=== PATIENT | female | born 1960 | race Caucasian/White ===

== ENCOUNTER 2019-10-29 09:58 | Outpatient (CLI) | payer OTHER, SELFPAY ==
--- NOTE | 2019-11-01 01:36 | WPDPFTINT ---
PFT Interpretation PFT Interpretation: DOS: 10/29/2019 REQUESTING: Leighann Ragland NP REASON FOR TESTING: Shortness of breath PULMONARY FUNCTION TESTS Results are reproducible. Spirometry: FEV1 100%, FVC 90%, FEV1% is 82%, all normal. No significant change with bronchodilator. Lung volumes: TLC 91%, RV 86%, and airway resistance also normal. Diffusion: DLCO 80%, normal. Flow volume loop: Normal. IMPRESSION: Normal study. Divya Aiken MD
== END 2019-10-29 09:59 | disposition home or self-care (01) ==
PROVIDERS: PCP Internal Medicine; Visit Provider Nurse Practitioner
DX: R05 Cough (principal)
CPT/HCPCS: 94060; 94726; 94729

== ENCOUNTER 2019-11-24 10:25 | Outpatient (CLI) | payer OTHER, SELFPAY ==
--- NOTE | ~2019-11-24 | US_ITS ---
EXAMINATION: US pelvic complete w TV DATE: 11/24/2019 11:18 INDICATION: Right lower quadrant abdominal pain. TECHNIQUE: Multiple transabdominal and endovaginal sonographic images of the pelvis were obtained. COMPARISON: CT abdomen and pelvis dated 05/23/2019 FINDINGS: The uterus measures 6.9 x 3.0 x 4.5 cm. The endometrial complex measures 1-2 mm in thickness. The ri ght ovary measures 2.1 x 1.8 x 1.3 cm. There are several is identified in the right ovary on color Do ppler. The left ovary is not visualized. There is no free fluid in the pelvis. IMPRESSION: 1. Normal postmenopausal pelvic ultrasound. Reviewed, dictated and finalized at location D.
--- NOTE | ~2019-11-24 | MR_ITS ---
EXAMINATION: MR lumbar spine wo con DATE: 11/24/2019 11:48 INDICATION: Lumbar spondylosis with low back pain TECHNIQUE: Magnetic resonance imaging (MRI) of the lumbar spine was performed without intravenous con trast. Sequences included sagittal T2-weighted FSE, sagittal T2-weighted FS FSE, sagittal T1-weighted FSE, and axial T2-weighted FSE. COMPARISON: CT abdomen and pelvis dated 05/23/2019 FINDINGS: 15 degree lumbar levoscoliosis. Sagittal alignment is normal. Vertebral body heights are normal. Mode rate to severe left-sided predominant disc height loss with fibrovascular and Modic type III scleroti c endplate changes at L4-L5. Moderate right-sided predominant disc height loss at L3-L4. Mild right-s ided disc height loss at L2-L3 with additional minimal fibrovascular degenerative endplate changes. B one marrow signal is otherwise normal. The conus medullaris terminates at L2. There is normal signal in the caudal spinal cord. Paravertebral soft tissues are unremarkable. The following disc levels are specifically discussed: T12-L1: Disc is minimally bulging with annular fissure and small central disc protrusion. There is mi ld left and moderate right facet joint osteoarthritis. There is no neural foraminal stenosis. There i s minimal central canal stenosis. L1-L2: Disc is mildly bulging. There is mild bilateral facet joint osteoarthritis. There is no neural foraminal stenosis. There is minimal central canal stenosis. L2-L3: Disc is mildly bulging. There is mild right and moderate left facet joint osteoarthritis. Ther e is mild to moderate right and minimal left neural foraminal stenosis. There is mild central canal s tenosis. L3-L4: Disc is mildly bulging with superimposed annular fissure and small central disc extrusion with disc material extending couple millimeters cephalad and caudal to the level of the endplates. There is hypertrophy of the ligamentum flavum. There is mild left and mild to moderate right facet joint o steoarthritis. There is mild bilateral neural foraminal stenosis. There is mild central canal stenosi s. L4-L5: Left foraminal zone disc osteophyte complex and small right foraminal zone disc protrusion. Th ere is mild left and moderate right facet joint osteoarthritis. There is mild right and moderate left neural foraminal stenosis. There is minimal central canal stenosis. L5-S1: Disc is mildly bulging. There is moderate bilateral facet joint osteoarthritis. There is mild left neural foraminal stenosis. There is minimal central canal stenosis. IMPRESSION: 1. Mild lumbar levoscoliosis with moderate spondylosis.. Reviewed, dictated and finalized at location D.
== END 2019-11-24 10:26 | disposition home or self-care (01) ==
PROVIDERS: PCP Physician Assistant; Visit Provider Physician Assistant
DX: M47.898 Other spondylosis, sacral and sacrococcygeal region (principal); R10.31 Right lower quadrant pain; M47.896 Other spondylosis, lumbar region
CPT/HCPCS: 72148; 76830; 76856

== ENCOUNTER → 2020-03-31 14:54 | Outpatient (CLI) | payer OTHER, SELFPAY ==
--- NOTE | ~2020-03-31 | MR_ITS ---
EXAMINATION: MR cervical spine wo con DATE: 03/31/2020 16:07 INDICATION: Cervical myelopathy. TECHNIQUE: Magnetic resonance imaging (MRI) of the cervical spine was performed without intravenous c ontrast. Sequences included sagittal T2-weighted FSE, sagittal STIR FSE, sagittal T1-weighted FSE, ax ial MERGE, and axial T2-weighted FSE. COMPARISON: None FINDINGS: There is 2 mm retrolisthesis of C4 on C5 and C5 on C6. Vertebral body heights are normal. T here is moderately decreased disc height at C4-C5, C5-C6, and C6-C7. The spinal cord signal intensity is normal. The following disc levels are specifically discussed: C2-C3: There is a central extrusion. There is no uncovertebral joint osteoarthritis. There is mild bi lateral facet joint osteoarthritis. There is no neural foraminal stenosis. There is mild central marilu l stenosis. C3-C4: The disc does not extend beyond the endplate margin. There is mild right uncovertebral joint o steoarthritis. There is moderate left facet joint osteoarthritis. There is mild left neural foraminal stenosis. There is no central canal stenosis. C4-C5: The disc does not extend beyond the endplate margins. There is mild bilateral uncovertebral juan f int osteoarthritis. There is no facet joint osteoarthritis. There is mild right neural foraminal sten osis. There is mild central canal stenosis. C5-C6: The disc is bulging. There is moderate bilateral uncovertebral joint osteoarthritis. There is no facet joint osteoarthritis. There is moderate right and mild left neural foraminal stenosis. There is mild central canal stenosis. C6-C7: The disc is bulging. There is moderate right and severe left uncovertebral joint osteoarthriti s. There is no facet joint osteoarthritis. There is mild right and moderate left neural foraminal fatoumata nosis. There is mild central canal stenosis. C7-T1: The disc does not extend beyond the endplate margin. There is no uncovertebral joint osteoarth ritis. There is mild left facet joint osteoarthritis. There is no neural foraminal stenosis. There is no central canal stenosis. IMPRESSION: 1. Moderate cervical spondylosis. Reviewed, dictated and finalized at location A.
== END ==
PROVIDERS: PCP Physician Assistant; Visit Provider Nurse Practitioner Acute Care
DX: G95.9 Disease of spinal cord, unspecified (principal); M47.892 Other spondylosis, cervical region
CPT/HCPCS: 72141

== ENCOUNTER → 2020-05-02 09:38 | Outpatient (CLI) | payer OTHER, SELFPAY ==
--- NOTE | ~2020-05-02 | XR_ITS ---
EXAMINATION: XR chest 2V 05/02/2020 09:51 INDICATION: Cough with wheezing PROCEDURE: 2 view chest COMPARISON: 06/15/2019 FINDINGS: The lungs are clear. The cardiomediastinal silhouette is within normal limits. There are no pleural effusions. There is no pneumothorax suspected. IMPRESSION: 1: NO ACUTE CARDIOPULMONARY DISEASE. Reviewed, dictated and finalized at location A. HOOP BENDER
== END ==
PROVIDERS: PCP Physician Assistant; Visit Provider Physician Assistant
DX: R05 Cough (principal)
CPT/HCPCS: 71046

== ENCOUNTER → 2021-01-27 07:29 | Outpatient (CLI) | payer OTHER, SELFPAY ==
--- NOTE | ~2021-01-27 | MR_ITS ---
EXAMINATION: MR ankle RT wo con DATE: 01/27/2021 08:25 INDICATION: Right-sided plantar fasciitis. TECHNIQUE: Magnetic resonance imaging (MRI) of the right ankle was performed without intravenous cont rast. Sequences included sagittal PD-weighted FS FSE, sagittal PD-weighted FSE, coronal PD-weighted F S FSE, coronal PD-weighted FSE, axial PD-weighted FS FSE, and axial PD-weighted FSE. COMPARISON: None. FINDINGS: Medial ankle ligaments: The superficial and deep components of the deltoid ligament are normal. Lateral ankle ligaments: The anterior and posterior talofibular ligaments, calcaneofibular ligament, and anterior and posterio r tibiofibular ligaments are normal. Tendons: The Achilles tendon, peroneal tendons, and anterior and medial ankle tendons are normal. Plantar fascia: There is thickening of the central band of plantar fascia. There is an enthesophyte at the calcaneal attachment. Bones/other: Bone alignment is normal. No fracture. Talar dome is normal. There is mild osteoarthritis of calcaneo cuboid joint. Fluid: There is no joint effusion. IMPRESSION: 1. Mild plantar fasciitis. Reviewed, dictated and finalized at location A. IMPRESSION: 1. Mild plantar fasciitis.
== END ==
PROVIDERS: PCP Physician Assistant; Visit Provider Podiatrist Foot & Ankle Surgery
DX: M72.2 Plantar fascial fibromatosis (principal)
CPT/HCPCS: 73721

== ENCOUNTER 2021-02-04 12:54 | Emergency (ER) | payer OTHER, SELFPAY ==
--- NOTE | ~2021-02-04 | XR_ITS ---
EXAMINATION: XR ribs RT 2V DATE: 02/04/2021 13:34 INDICATION: Anterior right chest pain post fall TECHNIQUE: 3 views of the right ribs were obtained. COMPARISON: Chest radiograph dated 05/02/2020 FINDINGS: Nondisplaced fracture at the anterior right seventh rib, possibly also at the adjacent anterior right sixth rib. Visualized portion of the lungs are clear with no focal airspace opacities, pulmonary raine ma, pleural effusion or pneumothorax. Cardiomediastinal silhouette is normal. Mild lumbar levocurvatu re. IMPRESSION: 1. Nondisplaced fracture at the anterior right seventh and possibly at the anterior right sixth ribs. Reviewed, dictated and finalized at location A. IMPRESSION: 1. Nondisplaced fracture at the anterior right seventh and possibly at the ante rior right sixth ribs.
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
[2021-02-04 13:10] VITALS: BP 146/64; PULSE 81; RESP 16; TEMP 36.2; O2SAT 100
== END 2021-02-04 14:24 | disposition home or self-care (01) ==
PROVIDERS: Emergency Provider Nurse Practitioner Family; PCP Physician Assistant
DX: S80.01XA Contusion of right knee, initial encounter (principal); V18.4XXA Pedal cycle driver injured in noncollision transport accident in traffic accident, initial encounter; E78.5 Hyperlipidemia, unspecified; I10 Essential (primary) hypertension; E03.9 Hypothyroidism, unspecified; M41.9 Scoliosis, unspecified
CPT/HCPCS: 71100; 73564; 99214; G0463

== ENCOUNTER → 2021-08-08 15:08 | Outpatient (CLI) | payer OTHER, SELFPAY ==
--- NOTE | ~2021-08-08 | XR_ITS ---
XR abdomen/kub 1V 08/08/2021 15:25 Indication: Right flank pain Procedure: KUB Comparison: CT dated 05/23/2019 Findings: There are innumerable punctate radiodensities presumably within bowel. There are changes of right lower abdominal hernia repair. Moderate colonic fecal loading. No definite renal/ureteral ston es. There is levoscoliosis of the lumbar spine with mild lumbar spondylosis. No acute osseous abnorma lity. Impression: 1: Nonobstructive bowel gas pattern with moderate colonic fecal loading. Reviewed, dictated and finalized at location A. ICALS DISTILLER Impression: 1: Nonobstructive bowel gas pattern with moderate colonic fecal loading.
== END ==
PROVIDERS: PCP Physician Assistant; Visit Provider Physician Assistant
DX: R10.9 Unspecified abdominal pain (principal)
CPT/HCPCS: 74018

== ENCOUNTER → 2022-03-02 11:55 | Outpatient (CLI) | payer OTHER, SELFPAY ==
--- NOTE | ~2022-03-02 | US_ITS ---
US right upper quadrant INDICATION: Right upper quadrant pain PROCEDURE: Realtime right upper abdominal ultrasound. COMPARISON: No prior studies for comparison. FINDINGS: The pancreas is normal without focal mass or pancreatic ductal dilation. Liver echotexture is normal without focal mass or intrahepatic biliary dilatation. There is normal directional flow i n the portal vein. The gallbladder is normal without stones, gallbladder wall thickening or pericholecystic fluid. Comm on bile duct measures 3 mm. No sonographic Vega's sign. IMPRESSION: 1: Normal limited abdominal ultrasound. Reviewed, dictated and finalized at location A.
== END ==
PROVIDERS: PCP Physician Assistant; Visit Provider Physician Assistant
DX: R10.11 Right upper quadrant pain (principal)
CPT/HCPCS: 76705

== ENCOUNTER → 2022-03-15 13:49 | Outpatient (CLI) | payer OTHER, SELFPAY ==
--- NOTE | ~2022-03-15 | CT_ITS ---
EXAMINATION: CT abdomen pelvis w con DATE: 03/15/2022 14:22 INDICATION: Right lower quadrant pain. TECHNIQUE: Computed tomography (CT) of the abdomen and pelvis was performed with 100 cc Omnipaque 350 intravenous contrast. The dose-length product was 273.52 mGy-cm. Automated exposure control and iter ative reconstruction technique were employed. COMPARISON: CT dated 05/23/2019 FINDINGS: Heart size normal. No significant pleural or pericardial effusion. No significant vascular abnormality. No lymphadenopathy. Nonobstructive bowel pattern. The liver contains a small subcentimeter cyst, right hepatic lobe. The spleen, pancreas, adrenal glan ds and kidneys are unremarkable. There are surgical changes of prior inguinal hernia repair. No free air or free fluid. Mild the appendix is unremarkable. Lumbar spondylosis with levoscoliosis. Mild ost eoarthritis of the hips. IMPRESSION: 1. No acute abdominal abnormality. Reviewed, dictated and finalized at location A.
[2022-03-15 14:11] LABS: Estimated Glomerular Filt Rate > 60
== END ==
PROVIDERS: PCP Physician Assistant; Visit Provider Physician Assistant
DX: R10.9 Unspecified abdominal pain (principal)
CPT/HCPCS: 74177; Q9967

== ENCOUNTER 2022-03-25 14:44 | Outpatient (CLI) | payer OTHER, SELFPAY ==
[2022-03-25 15:47] LABS: Add Urine Microscopic? NO; Appearance Urine Clear (Clear); Bilirubin Urine Negative (Negative); Blood Urine Negative (Negative); Color Urine Straw (Yellow); Glucose Urine UA Negative (Negative); Ketones Urine Negative (Negative); Leukocyte Esterase Ur Negative LEU/UL (Negative); Nitrate Urine Negative (Negative); Protein Urine Negative (Negative); Specific Grav Ur 1.009 (1.001-1.035); Urobilinogen Urine Negative mg/dL (<2.0)
== END 2022-03-25 14:45 | disposition home or self-care (01) ==
LOC: ANHLAB 14:45
PROVIDERS: PCP Physician Assistant; Visit Provider Nurse Practitioner
DX: R10.11 Right upper quadrant pain (principal); R10.9 Unspecified abdominal pain
CPT/HCPCS: 81003

== ENCOUNTER → 2022-05-17 07:30 | Outpatient (CLI) | payer OTHER, SELFPAY ==
--- NOTE | ~2022-05-17 | XR_ITS ---
XR chest 2V DATE: 05/17/2022 07:38 INDICATION: Pneumonia follow-up TECHNIQUE: 2 views COMPARISON: 05/02/2022 view chest FINDINGS: Normal heart size. No hilar or mediastinal enlargement. No pulmonary infiltrate or consolid ation, pleural effusion or pulmonary vascular congestion or pneumothorax. IMPRESSION: No active cardiopulmonary disease Reviewed, dictated and finalized at location B. 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
== END ==
PROVIDERS: PCP Physician Assistant; Visit Provider Physician Assistant
DX: J18.9 Pneumonia, unspecified organism (principal)
CPT/HCPCS: 71046

== ENCOUNTER 2022-07-12 00:07 | Day surgery (SDC) | payer OTHER, SELFPAY ==
[2022-07-02 16:07] VITALS: BMI 21.7
--- NOTE | 2022-07-11 09:49 | WPDANESEPPF ---
Anes - Initial Pre Proc Eval Procedure: Operation Date: 07/12/22 08:00 Proposed Procedures p Esophagogastroduodenoscopy EGD - Lukasz Dean MD Date/Time: 07/11/22 09:49 Surgeon: Lukasz Dean MD Pre Op Diagnosis: RUQ pain Patient Data Age: 61 Gender: F Height: 1.57 m Weight: 54 kg Allergies Allergy/AdvReac Type Severity Reaction Status Date / Time bee venom protein (honey bee) Allergy Intermediate hives Verified 07/12/22 06:51 Sulfa (Sulfonamide Allergy Intermediate HIVES Verified 07/12/22 06:51 Antibiotics) ciprofloxacin Allergy Mild nausea, Verified 07/12/22 06:51 trouble swallowing latex Allergy Mild Itching Verified 07/12/22 06:51 nitrofurantoin AdvReac Intermediate Nausea and Verified 07/12/22 06:51 Vomiting Home Medications Medication Instructions Recorded Confirmed Type hydrochlorothiazide 25 mg tablet 37.5 mg PO DAILY 05/18/19 07/02/22 History estradiol 0.01% (0.1 mg/gram) 2 g vaginal 3XW 11/13/20 07/02/22 History vaginal cream (Estrace) ezetimibe 10 mg tablet 10 mg PO DAILY 02/04/21 07/02/22 History gabapentin 100 mg capsule 100 mg PO DAILY 04/02/21 07/02/22 History blood sugar diagnostic (Accu-Chek #100 ea 12/19/21 06/19/22 Rx Christin Plus test strips) lancets (Accu-Chek Softclix #100 ea 12/19/21 06/19/22 Rx Lancets) metformin 500 mg tablet 500 mg PO TID 90 days #270 tabs 12/19/21 07/02/22 Rx promethazine 25 mg tablet 25 mg PO ONCE PRN PROPHYLACTIC 12/19/21 07/02/22 History cholecalciferol (vitamin D3) 1,250 50,000 unit PO MONTHLY 07/02/22 07/02/22 History mcg (50,000 unit) capsule dexamethasone sodium phosphate 4 4 mg 2XW 07/02/22 07/02/22 History mg/mL injection solution levothyroxine 50 mcg tablet 50 mcg PO DAILY 07/02/22 07/02/22 History (Synthroid) polyethylene glycol 3350 17 gram 8.5 g PO DAILY 07/02/22 07/02/22 History oral powder packet (Miralax) psyllium husk 0.52 gram capsule 0.52 g PO TID 07/02/22 07/02/22 History (Daily Fiber) Patient hx anesthesia problems: none Family hx anesthesia problems: none Results Review: All pre-operative results and documents have been reviewed as part of the pre-operative evaluation. [facility] Past Medical History Medical History Chronic constipation Colon cancer screening Diabetes type 2, controlled Early satiety GERD (gastroesophageal reflux disease) Hyperglycemia Hyperlipidemia Hypertension Hypothyroidism Liver cyst Mild scoliosis Right flank pain RUQ abdominal pain Vitamin D deficiency, unspecified Surgical History Surgical History History of biopsy History of hernia repair Family History Family History Father Family history of mental disorder Hypertension Mother Hypertension Family history of malignant neoplasm of breast in first degree relative Sibling Family history of thyroid disease Family history of malignant neoplasm of breast in first degree relative Other Family history of malignant neoplasm Social History Social History Smoking status: Never smoker Second hand tobacco smoke exposure: No Alcohol intake: current Substance use: never Substance use type: does not use Living arrangements: with family Occupation/Education: occupation 

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
[2022-07-12 06:52] VITALS: BP 139/65; PULSE 77; RESP 20; TEMP 35.7; O2SAT 100; BMI 22.8
[2022-07-12] MEDS: LACTATED RINGERS 1,000 ML 150 ML IV CONT (07:07)
[2022-07-12 07:09] LABS: Glucose Point of Care 85 mg/dl (65-105)
[2022-07-12 08:10] VITALS: BP 94/74; PULSE 72; RESP 18; O2SAT 98
[2022-07-12 08:20] VITALS: BP 101/55; PULSE 72; RESP 18; O2SAT 100
[2022-07-12 08:30] VITALS: BP 118/70; PULSE 70; RESP 20; O2SAT 100
== END 2022-07-12 08:48 | disposition home or self-care (01) ==
PROVIDERS: PCP Physician Assistant; Visit Provider Internal Medicine Gastroenterology
PROC: 0DJ08ZZ Inspection of Upper Intestinal Tract, Via Natural or Artificial Opening Endoscopic (ICD-10-PCS; CPT 43235; principal; 2022-07-12 08:00)
DX: K21.9 Gastro-esophageal reflux disease without esophagitis (principal); K25.9 Gastric ulcer, unspecified as acute or chronic, without hemorrhage or perforation; K29.80 Duodenitis without bleeding; I10 Essential (primary) hypertension; E11.9 Type 2 diabetes mellitus without complications; E78.5 Hyperlipidemia, unspecified; E03.9 Hypothyroidism, unspecified; E55.9 Vitamin D deficiency, unspecified; K59.09 Other constipation; Z79.84 Long term (current) use of oral hypoglycemic drugs
CPT/HCPCS: 43239; 82948; 87081; 88305; J2704; J7120

== ENCOUNTER 2022-08-05 07:15 | Outpatient (CLI) | payer OTHER, SELFPAY ==
--- NOTE | ~2022-08-05 | NM_ITS ---
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 TECHNIQUE: 5.1 mCi Tc-99m mebrofenin (Choletec) was administered intravenously. Scintigraphic images of the abdomen were obtained for one hour. At the 1 hour time point, the patient drank 8 oz Ensure, and imaging was continued for 60 minutes. Gallbladder ejection fraction was calculated by the technol ogist. FINDINGS: There is normal clearance of radiotracer from the blood pool. There is homogeneous tracer u ptake by the liver. Activity progresses to the bowel and gallbladder. The gallbladder ejection fract ion is 76%. Note that with this technique, normal GBEF >= 33%. IMPRESSION: 1. Normal hepatobiliary scan. Reviewed, dictated and finalized at location B. 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
== END 2022-08-05 07:16 | disposition home or self-care (01) ==
PROVIDERS: PCP Physician Assistant; Visit Provider Internal Medicine Gastroenterology
DX: R10.11 Right upper quadrant pain (principal)
CPT/HCPCS: 78226; A9537

== ENCOUNTER 2022-09-14 20:55 | Emergency (ER) | payer OTHER, SELFPAY ==
[2022-09-14] VITALS (16 sets, daily range): BP systolic 108–156; BP diastolic 66–93; PULSE 80; RESP 18; TEMP 36.6; O2SAT 98–100
--- NOTE | 2022-09-14 23:49 | ED.GENADULT ---
HPI - General Adult General Chief complaint: Eye Problems Stated complaint: one pupil dilated? Time Seen by Provider: 09/14/22 22:46 History of Present Illness HPI narrative: This is a 61-year-old female presenting to ED with chief complaint of a dilated pupil. The patient's daughter noticed that her left pupil is larger than her right pupil. The patient spent the day outside playing with the grand kids. She has had no other neurologic symptoms. The patient does note that over the last several weeks she has been having blurry vision and headaches that are worse in the morning. The headaches are located on the top of her head and resolve throughout the day. There is no associated nausea, vomiting or neurologic deficits. Patient's father had glioblastoma. Related Data Home Medications Medication Instructions Recorded Confirmed hydrochlorothiazide 25 mg tablet 37.5 mg PO DAILY 05/18/19 07/02/22 estradiol 0.01% (0.1 mg/gram) 2 g vaginal 3XW 11/13/20 07/02/22 vaginal cream (Estrace) ezetimibe 10 mg tablet 10 mg PO DAILY 02/04/21 07/02/22 gabapentin 100 mg capsule 100 mg PO DAILY 04/02/21 07/02/22 promethazine 25 mg tablet 25 mg PO ONCE PRN PROPHYLACTIC 12/19/21 07/02/22 cholecalciferol (vitamin D3) 1,250 50,000 unit PO MONTHLY 07/02/22 07/02/22 mcg (50,000 unit) capsule dexamethasone sodium phosphate 4 4 mg 2XW 07/02/22 07/02/22 mg/mL injection solution levothyroxine 50 mcg tablet 50 mcg PO DAILY 07/02/22 07/02/22 (Synthroid) polyethylene glycol 3350 17 gram 8.5 g PO DAILY 07/02/22 07/02/22 oral powder packet (Miralax) psyllium husk 0.52 gram capsule 0.52 g PO TID 07/02/22 07/02/22 (Daily Fiber) Allergies Allergy/AdvReac Type Severity Reaction Status Date / Time bee venom protein (honey bee) Allergy Intermediate hives Verified 09/14/22 21:50 Sulfa (Sulfonamide Allergy Intermediate HIVES Verified 09/14/22 21:50 Antibiotics) ciprofloxacin Allergy Mild nausea, Verified 09/14/22 21:50 trouble swallowing latex Allergy Mild Itching Verified 09/14/22 21:50 nitrofurantoin AdvReac Intermediate Nausea and Verified 09/14/22 21:50 Vomiting PMFSH Past Medical History Medical History Chronic constipation Colon cancer screening Diabetes type 2, controlled Early satiety GERD (gastroesophageal reflux disease) Hyperglycemia Hyperlipidemia Hypertension Hypothyroidism Liver cyst Mild scoliosis Right flank pain RUQ abdominal pain Vitamin D deficiency, unspecified Surgical History Surgical History History of biopsy History of hernia repair Family History Family History Father Family history of mental disorder Hypertension Mother Hypertension Family history of malignant neoplasm of breast in first degree relative Sibling Family history of thyroid disease Family history of malignant neoplasm of breast in first degree relative Other Family history of malignant neoplasm Social History Social History Smoking status: Never smoker Second hand tobacco smoke exposure: No Alcohol intake: current Substance use: never Substance use type: does not use Living arrangements: with family Occupation/Education: occupation 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 Head: atraumatic. EYES: Left eye is dilated at 3 mm, right eye 2 mm, consensual light reflexes intact. Intra-ocular pressure 16 bilaterally. No evidence of corneal abrasion. No injection. Visual acuity R. 20/30 NOSE: Atraumatic NECK: Trachea midline RESPIRATORY: No increased rate of breathing CARDIOVASCULAR: RRR, ABDOMINAL: Non-distended MUSCULOSKE
[2022-09-15 00:05] LABS: Basophils Absolute Auto 0.1 K/mm3 (0.0-0.1); Basophils Percent Auto 0.8 % (0.2-1.2); Eosinophils Absolute Auto 0.3 K/mm3 (0-0.3); Eosinophils Percent Auto 3.7 % (0-4.4); Hematocrit 35.8 % (37.0-47.0); Hemoglobin 11.5 g/dL (12.0-15.0); Immature Granulocyte Absolute 0.02 K/mm3 (0.00-0.031); Immature Granulocyte Percent A 0.2 % (0-0.5); Lymphocytes Absolute Auto 3.39 K/mm3 (0.9-3.2); Lymphocytes Percent Auto 37.3 % (18.3-44.2); Mean Corpuscular HGB Conc 32.1 g/dl (32-36); Mean Corpuscular Hemoglobin 26.5 pg (26-34); Mean Corpuscular Volume 82.5 fl (80-100); Mean Platelet Volume 9.1 fl (7.4-10.4); Monocytes Absolute Auto 0.8 K/mm3 (0.1-0.6); Monocytes Percent Auto 8.6 % (2.6-8.5); Neutrophils Absolute Auto 4.5 K/mm3 (1.3-6.7); Neutrophils Percent Auto 49.4 % (45.5-73.1); Platelet Count Result 364 k/mm3 (150-375); Red Blood Count 4.34 M/mm3 (4.2-5.4); Red Cell Distribution Width 14.7 % (11.5-14.5); White Blood Count 9.1 K/mm3 (4.5-10.0)
[2022-09-15 00:14] LABS: Anion Gap 6 mmol/L (8-16); Blood Urea Nitrogen 25 mg/dL (7-17); Calcium 9.6 mg/dL (8.4-10.2); Carbon Dioxide 32 mmol/L (22-30); Chloride 99 mmol/L (98-107); Estimated CRCL calculation 65 ml/min; Estimated Glomerular Filt Rate > 60; Glucose 102 mg/dL (65-110); Potassium 3.2 mmol/L (3.4-5.0); Sodium 137 mmol/L (137-145)
--- NOTE | 2022-09-15 00:20 | ECG_ITS ---
Measurements Intervals [place] Rate: 71 P: 48 DC: 204 QRS: 27 QRSD: 86 T: 43 QT: 407 QTc: 445 Interpretive Statements SINUS RHYTHM BASELINE ARTIFACT LOW QRS VOLTAGE IN PRECORDIAL LEADS NONSPECIFIC T-WAVE ABNORMALITY BORDERLINE ECG NO PREVIOUS ECG AVAILABLE FOR COMPARISON Electronically Signed On 09-15-2022 13:44:15 CDT by Darwin Hines M.D.
== END 2022-09-15 00:55 | disposition home or self-care (01) ==
PROVIDERS: Emergency Provider Emergency Medicine; PCP Physician Assistant
DX: H57.02 Anisocoria (principal); E11.9 Type 2 diabetes mellitus without complications; I10 Essential (primary) hypertension; E78.5 Hyperlipidemia, unspecified; E03.9 Hypothyroidism, unspecified; E55.9 Vitamin D deficiency, unspecified; K59.09 Other constipation; Z79.84 Long term (current) use of oral hypoglycemic drugs
CPT/HCPCS: 36415; 80048; 85025; 93005; 99283

== ENCOUNTER → 2022-09-26 13:44 | Outpatient (CLI) | payer OTHER, SELFPAY ==
--- NOTE | ~2022-09-26 | MR_ITS ---
EXAMINATION: MR orbits face neck wo/w con DATE: 09/26/2022 15:13 INDICATION: Headache and dilated left pupil TECHNIQUE: Magnetic resonance imaging (MRI) of the orbits and face was performed without and with 10 mL Multihance intravenous contrast. Sequences included sagittal and axial and coronal T1-weighted FSE and axial T2-weighted FSE. Postcontrast axial and coronal T1-weighted FSE was obtained. COMPARISON: None. FINDINGS: Orbits are normal. The optic nerves and chiasm appear normal. The basal cisterns including the supras ellar cistern appear normal. The pituitary stalk is deviated slightly to the right. Pituitary appears otherwise unremarkable. No abnormalities identified at the naye or along the course of the bilateral 3rd cranial nerves. Cavernous sinuses unremarkable both the left and right. Mild mucosal thickening and the paranasal sinuses with mucous retention cyst at the floor of the right maxillary sinus. Masto id air cells and middle ear cavities are clear. Visualized portion of the brain are normal. Flow void s are seen in the cerebral arteries on the T2-weighted sequences consistent with their expected paten cy. A patent right posterior communicating artery is larger in caliber than the right P1 segment. The left P1 segment is smaller than the left P1 segment. No aneurysms appreciated. Ventricles are normal and symmetric. No abnormally enhancing lesions identified. IMPRESSION: 1. Unremarkable study with no evident etiology for reported headache or dilated left pupil. Reviewed, dictated and finalized at location A.
--- NOTE | ~2022-09-26 | MR_ITS ---
EXAMINATION: MR brain/brain stem wo/w con DATE: 09/26/2022 15:13 INDICATION: Headache TECHNIQUE: Magnetic resonance imaging (MRI) of the brain and brainstem was performed without and with 10 mL Multihance intravenous contrast. Sequences included sagittal and axial T1-weighted SE, axial d iffusion-weighted FS SE, axial 3D SWAN, axial T2-weighted FLAIR, and axial T2-weighted FSE. Postcontr ast axial and coronal T1-weighted SE was obtained. Apparent diffusion coefficient (ADC) maps were cre ated. COMPARISON: 11/24/2018 FINDINGS: There are no areas of restricted diffusion to suggest acute infarction. No intracranial hemorrhage or abnormal intracranial mass lesion. No interval change in 3 small nonspecific foci of increased T2-we ighted signal intensity in the cerebral white matter which is within normal limits for age. There are no intraparenchymal signal abnormalities seen on the other pulse sequences. The ventricles are symme tric and normal in size. There are no abnormal extra-axial fluid collections. Flow voids are seen in the cerebral arteries on the T2-weighted sequences consistent with their expected patency. Right vert ebral artery is dominant. Mild mucosal thickening bilateral ethmoid sinuses. Mucous retention cyst in the right maxillary sinus. Visualized orbits and soft tissues are unremarkable. There are no areas o f abnormal enhancement on the post contrast images. IMPRESSION: 1. Normal for age brain. No acute intracranial process. Reviewed, dictated and finalized at location A.
== END ==
PROVIDERS: PCP Physician Assistant; Visit Provider Physician Assistant
DX: H57.04 Mydriasis (principal); R51.9 Headache, unspecified
CPT/HCPCS: 70543; 70553; A9577

== ENCOUNTER 2023-02-07 14:51 | Emergency (ER) | payer OTHER, SELFPAY ==
--- NOTE | ~2023-02-07 | XR_ITS ---
EXAMINATION: XR chest 1V DATE: 02/07/2023 18:26 INDICATION: Near syncope. TECHNIQUE: A single frontal view of the chest was obtained. COMPARISON: Chest 2 views 05/17/2022 FINDINGS: There is no pneumonia, pleural effusion, or pneumothorax. The heart size is normal. IMPRESSION: 1. No acute cardiopulmonary disease. Reviewed, dictated and finalized at location E.
--- NOTE | ~2023-02-07 | CT_ITS ---
EXAMINATION: CT brain wo con DATE: 02/07/2023 18:24 INDICATION: Headache. TECHNIQUE: Computed tomography (CT) of the head was performed without intravenous contrast. The mA wa s adjusted according to patient size. Iterative reconstruction technique was employed. The dose-lengt h product was 605.33 mGy-cm. COMPARISON: Head CT 03/22/2010, brain MRI 09/26/2022 FINDINGS: There is no intracranial hemorrhage, acute infarction, or abnormal intracranial mass lesion . The ventricles are normal in size. The orbits are normal. There is a small right mastoid effusion. There is complete opacification of the visualized portions of the right frontal sinus, anterior right ethmoid sinuses, and right maxillary sinus. IMPRESSION: 1. Normal brain. Reviewed, dictated and finalized at location E. IMPRESSION: 1. Normal brain.
[2023-02-07 15:06] VITALS: BP 152/75; PULSE 102; RESP 17; TEMP 37.1; O2SAT 99
--- NOTE | 2023-02-07 17:58 | ECG_ITS ---
Measurements Intervals [place] Rate: 73 P: 55 VA: 203 QRS: 28 QRSD: 78 T: 45 QT: 393 QTc: 433 Interpretive Statements SINUS RHYTHM NORMAL ECG COMPARED TO ECG 09/15/2022 00:20:47 NO SIGNIFICANT CHANGES Electronically Signed On 02-07-2023 20:15:17 CDT by Martin Black D.O.
--- NOTE | 2023-02-07 18:13 | ED.HA ---
HPI - Headache General Chief Complaint: Headache Stated Complaint: headache, near syncope Time Seen by Provider: 02/07/23 17:58 Source: patient Mode of arrival: ambulatory Limitations: no limitations History of Present Illness HPI Narrative: This is a 62 year old female that presents to the ER for cold symptoms ongoing over the last week. Reports several people at school have tested positive for COVID. She went to the urgent care to get a COVID test. Reports she was prompted to be seen in the ER for a possible stroke due to her persistent headache. Reports a intermittent right sided headache. Reports it is mild at this time. She did take Tylenol this afternoon. Reports associated rhinorrhea, congestion and cough. Denies fever, shortness of breath, or focal numbness or weakness. Related Data Home Medications Medication Instructions Recorded Confirmed hydrochlorothiazide 25 mg tablet 37.5 mg PO DAILY 05/18/19 12/17/22 ezetimibe 10 mg tablet 10 mg PO DAILY 02/04/21 12/17/22 gabapentin 100 mg capsule 100 mg PO DAILY 04/02/21 12/17/22 psyllium husk 0.52 gram capsule 0.52 g PO TID 07/02/22 12/17/22 (Daily Fiber) Allergies Allergy/AdvReac Type Severity Reaction Status Date / Time bee venom protein (honey bee) Allergy Intermediate hives Verified 02/07/23 15:14 Sulfa (Sulfonamide Allergy Intermediate HIVES Verified 02/07/23 15:14 Antibiotics) ciprofloxacin Allergy Mild nausea, Verified 02/07/23 15:14 trouble swallowing latex Allergy Mild Itching Verified 02/07/23 15:14 nitrofurantoin AdvReac Intermediate Nausea and Verified 02/07/23 15:14 Vomiting Review of Systems Review of Systems: CONSTITUTIONAL: Denies fever EYES: Denies visual changes ENT: Reports rhinorrhea, congestion CARDIOVASCULAR: Denies chest pain, palpitations, or edema. RESPIRATORY: Reports cough. Denies dyspnea. GASTROINTESTINAL: Denies vomiting NEUROLOGIC: Reports headache. Denies numbness, or weakness. All systems reviewed & are unremarkable except as noted in HPI and below PMFSH Past Medical History Medical History Chronic constipation Colon cancer screening Diabetes type 2, controlled Early satiety GERD (gastroesophageal reflux disease) Hyperglycemia Hyperlipidemia Hypertension Hypothyroidism Liver cyst Mild scoliosis Right flank pain RUQ abdominal pain Vitamin D deficiency, unspecified Surgical History Surgical History History of biopsy History of hernia repair Family History Family History Father Family history of mental disorder Hypertension Mother Hypertension Family history of malignant neoplasm of breast in first degree relative Sibling Family history of thyroid disease Family history of malignant neoplasm of breast in first degree relative Other Family history of malignant neoplasm Social History Social History Smoking status: Never smoker Second hand tobacco smoke exposure: No Alcohol intake: current Substance use: never Substance use type: does not use Living arrangements: with family Occupation/Education: occupation 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 HEAD: Normocephalic, atraumatic. EYES: EOMI. Left pupil is slightly larger than the right, which patient reports is chronic, reactive to light and accommodation bilaterally ENT: Nares clear, no rhinorrhea or epistaxis. Mucous membranes moist. Oropharynx without tonsillar hypertrophy exudate or other lesions. Bilateral TMs pearly alexander non-bulging NECK: Supple. No adenopathy or masses. CHEST: Clear to auscultation. No respi
[2023-02-07 18:37] LABS: Basophils Absolute Auto 0.1 K/mm3 (0.0-0.1); Basophils Percent Auto 0.8 % (0.2-1.2); Eosinophils Absolute Auto 0.2 K/mm3 (0-0.3); Eosinophils Percent Auto 2.3 % (0-4.4); Hematocrit 35.9 % (37.0-47.0); Hemoglobin 11.4 g/dL (12.0-15.0); Immature Granulocyte Absolute 0.01 K/mm3 (0.00-0.031); Immature Granulocyte Percent A 0.1 % (0-0.5); Lymphocytes Absolute Auto 2.76 K/mm3 (0.9-3.2); Lymphocytes Percent Auto 31.2 % (18.3-44.2); Mean Corpuscular HGB Conc 31.8 g/dl (32-36); Mean Corpuscular Hemoglobin 25.4 pg (26-34); Mean Corpuscular Volume 80.1 fl (80-100); Mean Platelet Volume 8.9 fl (7.4-10.4); Monocytes Absolute Auto 0.7 K/mm3 (0.1-0.6); Monocytes Percent Auto 7.4 % (2.6-8.5); Neutrophils Absolute Auto 5.2 K/mm3 (1.3-6.7); Neutrophils Percent Auto 58.2 % (45.5-73.1); Platelet Count Result 435 k/mm3 (150-375); Red Blood Count 4.48 M/mm3 (4.2-5.4); Red Cell Distribution Width 15.5 % (11.5-14.5); White Blood Count 8.8 K/mm3 (4.5-10.0)
[2023-02-07 18:48] LABS: Alanine Aminotransferase 14 U/L (6-35); Albumin Level 4.2 g/dL (3.5-5.1); Alkaline Phosphatase 66 U/L (38-126); Anion Gap 6 mmol/L (8-16); Aspartate Amino Transferase 23 U/L (14-36); Bilirubin,Total 0.3 mg/dL (0.2-1.3); Blood Urea Nitrogen 17 mg/dL (7-17); Calcium 9.6 mg/dL (8.4-10.2); Carbon Dioxide 32 mmol/L (22-30); Chloride 99 mmol/L (98-107); Estimated CRCL calculation 64 ml/min; Estimated Glomerular Filt Rate > 60; Glucose 98 mg/dL (65-110); Potassium 3.6 mmol/L (3.4-5.0); Sodium 137 mmol/L (137-145)
[2023-02-07 19:00] LABS: Troponin I < 0.012 ng/mL (0.000-0.034)
[2023-02-07 19:14] LABS: Influenza A QL RT-PCR Negative (Negative); Influenza B QL RT-PCR Negative (Negative); SARS-CoV-2 RNA PCR Negative (Negative)
[2023-02-07 20:53] VITALS: PULSE 74; RESP 19; O2SAT 99
== END 2023-02-07 20:54 | disposition home or self-care (01) ==
PROVIDERS: Emergency Provider Physician Assistant; PCP Physician Assistant
DX: R51.9 Headache, unspecified (principal); Z20.822 Contact with and (suspected) exposure to COVID-19; I10 Essential (primary) hypertension; E11.9 Type 2 diabetes mellitus without complications; E78.5 Hyperlipidemia, unspecified; E03.9 Hypothyroidism, unspecified; E55.9 Vitamin D deficiency, unspecified; K21.9 Gastro-esophageal reflux disease without esophagitis; R68.81 Early satiety; Z79.84 Long term (current) use of oral hypoglycemic drugs
CPT/HCPCS: 36415; 70450; 71045; 80053; 84484; 85025; 87636; 93005; 99284

== ENCOUNTER 2023-09-17 21:13 | Emergency (ER) | payer OTHER, SELFPAY ==
[2023-09-17 21:19] VITALS: BP 171/93; PULSE 88; RESP 18; TEMP 36.1; O2SAT 100
[2023-09-17 23:19] VITALS: BP 142/80; PULSE 81; RESP 17; O2SAT 99
[2023-09-17 23:24] VITALS: O2SAT 98
[2023-09-18] MEDS: methylPREDNISolone SOD SUCC 125 MG VIAL IV PUSH (00:55)
[2023-09-18] MEDS: FAMOTIDINE 20 MG/2 ML VIAL IV PUSH (00:55)
[2023-09-18] MEDS: diphenhydrAMINE HCl INJ 50 MG/ML VIAL 25 MG IV PUSH (00:55)
[2023-09-18 01:16] VITALS: BP 141/107; PULSE 70; RESP 15; O2SAT 100
--- NOTE | 2023-09-18 02:02 | ED.ALLEREA ---
HPI - Allergic Reaction General Chief complaint: Allergic Reaction Stated complaint: allergic reaction Time Seen by Provider: 09/17/23 23:10 Source: patient Mode of arrival: ambulatory Limitations: no limitations History of Present Illness HPI narrative: Patient is a 62-year-old female who presents the ED with report of allergic reaction. Patient reports around 530 today she took a dose of Diflucan for a yeast infection. She has been on several different antibiotics recently for dental infections and has had oral surgery recently. Stitches were removed from her right upper mouth today from recent oral surgery. Approximately 45 minutes after taking Diflucan, she developed mild swelling of her tongue. She states her tongue appeared as though it had hives, splotches, red raised bumps. She began having mild difficulty swallowing. Denied difficulty breathing. She contacted a telehealth doctor and was advised to come to the ED for further evaluation. Patient did not take anything for her symptoms. She reports symptoms have begun to improve. She states her tongue does not feel quite as swollen. She denied any other associated symptoms. Denied rash elsewhere. Denied nausea, vomiting, diarrhea, cough, itching, CP, dizziness, lightheadedness. Patient notes she does have numerous allergies. Never had anaphylaxis before. Patient has never taken Diflucan before. She has been on the antibiotics before. Denies any other new medications, foods, face washes. Related Data Home Medications Medication Instructions Recorded Confirmed hydrochlorothiazide 25 mg tablet 37.5 mg PO DAILY 05/18/19 04/03/23 ezetimibe 10 mg tablet 10 mg PO DAILY 02/04/21 04/03/23 gabapentin 100 mg capsule 100 mg PO DAILY 04/02/21 04/03/23 psyllium husk 0.52 gram capsule 0.52 g PO TID 07/02/22 04/03/23 (Daily Fiber) metformin 500 mg tablet 250 mg PO TIDWMEAL 04/03/23 04/03/23 Allergies Allergy/AdvReac Type Severity Reaction Status Date / Time fluconazole [From Diflucan] Allergy Severe Anaphylaxis Verified 09/18/23 02:03 bee venom protein (honey bee) Allergy Intermediate hives Verified 04/03/23 13:06 Sulfa (Sulfonamide Allergy Intermediate HIVES Verified 04/03/23 13:06 Antibiotics) ciprofloxacin Allergy Mild nausea, Verified 04/03/23 13:06 trouble swallowing latex Allergy Mild Itching Verified 04/03/23 13:06 nitrofurantoin AdvReac Intermediate Nausea and Verified 04/03/23 13:06 Vomiting Review of Systems Review of Systems: CONSTITUTIONAL: Denies fever, chills, or sweats. ENT: See HPI. CARDIOVASCULAR: Denies chest pain. RESPIRATORY: Denies cough or dyspnea. GASTROINTESTINAL: Denies abdominal pain, nausea, vomiting. SKIN: See HPI NEUROLOGIC: Denies headache, dizziness, numbness, or weakness. All systems reviewed & are unremarkable except as noted in HPI and below [facility] Past Medical History Medical History Chronic constipation Colon cancer screening Diabetes type 2, controlled Early satiety GERD (gastroesophageal reflux disease) Hyperglycemia Hyperlipidemia Hypertension Hypothyroidism Liver cyst Mild scoliosis Retained myringotomy tube in right ear Right flank pain RUQ abdominal pain Vitamin D deficiency, unspecified Surgical History Surgical History History of biopsy History of hernia repair S/P tympanotomy with insertion of tube Family History Family History Father Family history of mental disorder Hypertension Mother Hypertension Family history of malignant neoplasm of breast in first degree relative Sibling Family history of thyroid disease Family history of malignant neoplasm of breast in first degree relative Other Family history of malignant neoplasm Social History Social History (Reviewed 09/18/23 @ 03:57 by Lorena Butler
[2023-09-18 02:26] VITALS: BP 133/73; PULSE 72; RESP 15; O2SAT 98
== END 2023-09-18 02:28 | disposition home or self-care (01) ==
PROVIDERS: Emergency Provider Physician Assistant; PCP Physician Assistant
DX: R13.10 Dysphagia, unspecified (principal); R22.0 Localized swelling, mass and lump, head; T37.8X5A Adverse effect of other specified systemic anti-infectives and antiparasitics, initial encounter; I10 Essential (primary) hypertension; E78.5 Hyperlipidemia, unspecified; E11.9 Type 2 diabetes mellitus without complications; E03.9 Hypothyroidism, unspecified; E55.9 Vitamin D deficiency, unspecified; K21.9 Gastro-esophageal reflux disease without esophagitis; Z79.84 Long term (current) use of oral hypoglycemic drugs
CPT/HCPCS: 96374; 96375; 99284; J1200; J2919

== ENCOUNTER 2023-09-19 17:38 | Emergency (ER) | payer OTHER, SELFPAY ==
[2023-09-19] VITALS (9 sets, daily range): BP systolic 132–157; BP diastolic 77–94; PULSE 68–84; RESP 12–20; TEMP 36.6; O2SAT 96–100
--- NOTE | ~2023-09-19 | CT_ITS ---
EXAMINATION: CT soft tissue neck w con DATE: 09/19/2023 19:27 INDICATION: Dysphagia TECHNIQUE: Computed tomography (CT) of the neck was performed with 75 mL Omnipaque-350 intravenous co ntrast. Automated exposure control and iterative reconstruction technique were employed. Exam dose: 252.07 mGy-cm total exam DLP. COMPARISON: July 26, 2013 CT soft tissue neck FINDINGS: Mild calcified plaque is noted at the carotid bulbs bilaterally, without significant lumina l stenosis. No evidence of carotid artery dissection. The internal jugular veins are patent. No super ior mediastinal mass lesion or lymphadenopathy. No cervical mass lesion or lymphadenopathy. Normal size and homogeneous enhancement of the thyroid gland. No parotid or submandibular gland mass lesion is noted. No cervical mass lesion or lymphadenopathy. No prevertebral soft tissue swelling or emphysema. Normal epiglottis. There is mild mucoperiosteal thickening of the inferolateral wall of the right maxillary antrum. The paranasal sinuses and mastoid air cells otherwise are normally developed and aerated. The included upper lung zones are clear. Moderately prominent cervical spondylosis including moderately prominent degenerative disc disease at C4-5, C5-6 and C6-7, with associated mild retrolisthesis at C5-6. IMPRESSION: No cervical mass lesion or lymphadenopathy Reviewed, dictated and finalized at Location A. Reviewed, dictated and finalized at location A.
--- NOTE | 2023-09-19 18:33 | ED.ALLEREA ---
HPI - Allergic Reaction General Chief complaint: Allergic Reaction Stated complaint: THROAT FEELS TIGHT/DIFFICULTY SWALLOWING Time Seen by Provider: 09/19/23 17:48 Source: patient Mode of arrival: ambulatory Limitations: no limitations History of Present Illness HPI narrative: This is a 62-year-old female with chief complaint possible allergic reaction. Reports that she has been having dysphagia after taking Diflucan a couple days ago. She presented to our ED initially was told that she had an allergic reaction. Was given steroids,. She does feel like the steroids and helping. However today she started creased difficulty with swallowing. She does note that she had a itchy rash to the side of the abdomen yesterday that has since resolved. Denies drooling. Denies shortness of breath or feeling that she cannot take air in. Denies fevers, chills, nausea, vomiting, chest pain, cough. Related Data Home Medications Medication Instructions Recorded Confirmed hydrochlorothiazide 25 mg tablet 37.5 mg PO DAILY 05/18/19 04/03/23 ezetimibe 10 mg tablet 10 mg PO DAILY 02/04/21 04/03/23 gabapentin 100 mg capsule 100 mg PO DAILY 04/02/21 04/03/23 psyllium husk 0.52 gram capsule 0.52 g PO TID 07/02/22 04/03/23 (Daily Fiber) metformin 500 mg tablet 250 mg PO TIDWMEAL 04/03/23 04/03/23 Allergies Allergy/AdvReac Type Severity Reaction Status Date / Time fluconazole [From Diflucan] Allergy Severe Anaphylaxis Verified 09/18/23 02:03 bee venom protein (honey bee) Allergy Intermediate hives Verified 04/03/23 13:06 Sulfa (Sulfonamide Allergy Intermediate HIVES Verified 04/03/23 13:06 Antibiotics) ciprofloxacin Allergy Mild nausea, Verified 04/03/23 13:06 trouble swallowing latex Allergy Mild Itching Verified 04/03/23 13:06 nitrofurantoin AdvReac Intermediate Nausea and Verified 04/03/23 13:06 Vomiting Review of Systems Review of Systems: All systems as dictated in HPI [facility] Past Medical History Medical History Chronic constipation Colon cancer screening Diabetes type 2, controlled Early satiety GERD (gastroesophageal reflux disease) Hyperglycemia Hyperlipidemia Hypertension Hypothyroidism Liver cyst Mild scoliosis Retained myringotomy tube in right ear Right flank pain RUQ abdominal pain Vitamin D deficiency, unspecified Surgical History Surgical History History of biopsy History of hernia repair S/P tympanotomy with insertion of tube Family History Family History Father Family history of mental disorder Hypertension Mother Hypertension Family history of malignant neoplasm of breast in first degree relative Sibling Family history of thyroid disease Family history of malignant neoplasm of breast in first degree relative Other Family history of malignant neoplasm Social History Social History Smoking status: Never smoker Second hand tobacco smoke exposure: No Alcohol intake: current Substance use: never Substance use type: does not use Living arrangements: with family Occupation/Education: occupation 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 HEAD: Normocephalic, atraumatic. EYES: PERRLA and EOMI. ENT: No tongue swelling. No lip swelling. No eyelid swelling. Uvula midline and normal in size. No significant submandibular swelling or tenderness. Nares clear, no rhinorrhea or epistaxis. Mucous membranes moist. Oropharynx without tonsillar hypertrophy exudate or other lesions. NECK: Supple. No adenopathy or masses. CHEST: No respirat
[2023-09-19 18:53] LABS: Basophils Percent Auto 0.1 % (0.2-1.2); Hemoglobin 11.3 g/dL (12.0-15.0); Immature Granulocyte Absolute 0.06 K/mm3 (0.00-0.031); Immature Granulocyte Percent A 0.4 % (0-0.5); Lymphocytes Absolute Auto 1.81 K/mm3 (0.9-3.2); Lymphocytes Percent Auto 11.7 % (18.3-44.2); Mean Corpuscular HGB Conc 32.3 g/dl (32-36); Mean Corpuscular Hemoglobin 25.7 pg (26-34); Mean Corpuscular Volume 79.5 fl (80-100); Mean Platelet Volume 9.2 fl (7.4-10.4); Monocytes Absolute Auto 0.9 K/mm3 (0.1-0.6); Monocytes Percent Auto 6.1 % (2.6-8.5); Neutrophils Absolute Auto 12.7 K/mm3 (1.3-6.7); Neutrophils Percent Auto 81.7 % (45.5-73.1); Platelet Count Result 460 k/mm3 (150-375); Red Cell Distribution Width 15.1 % (11.5-14.5); White Blood Count 15.5 K/mm3 (4.5-10.0)
[2023-09-19 19:06] LABS: Alanine Aminotransferase 17 U/L (6-35); Albumin Level 4.5 g/dL (3.5-5.1); Alkaline Phosphatase 57 U/L (38-126); Anion Gap 7 mmol/L (4-12); Aspartate Amino Transferase 19 U/L (14-36); Bilirubin,Total 0.4 mg/dL (0.2-1.3); Blood Urea Nitrogen 19 mg/dL (7-17); CRP < 0.5 mg/dL (<1.0); Carbon Dioxide 27 mmol/L (22-30); Chloride 99 mmol/L (98-107); Estimated CRCL calculation 55 ml/min; Estimated Glomerular Filt Rate > 60; Glucose 115 mg/dL (65-110); Potassium 4.1 mmol/L (3.4-5.0); Sodium 133 mmol/L (137-145)
[2023-09-19] MEDS: diphenhydrAMINE HCl INJ 50 MG/ML VIAL 25 MG IV PUSH (19:42)
== END 2023-09-19 20:35 | disposition home or self-care (01) ==
PROVIDERS: Emergency Provider Physician Assistant; PCP Physician Assistant
DX: R13.10 Dysphagia, unspecified (principal); T37.8X5A Adverse effect of other specified systemic anti-infectives and antiparasitics, initial encounter; I10 Essential (primary) hypertension; E78.5 Hyperlipidemia, unspecified; E11.9 Type 2 diabetes mellitus without complications; E03.9 Hypothyroidism, unspecified; E55.9 Vitamin D deficiency, unspecified; K21.9 Gastro-esophageal reflux disease without esophagitis; Z79.84 Long term (current) use of oral hypoglycemic drugs
CPT/HCPCS: 36415; 70491; 80053; 85025; 86140; 96374; 99284; J1200; Q9967

== ENCOUNTER 2023-12-16 07:00 | Outpatient (NON) | payer MEDICARE, SELFPAY | END 2023-12-17 07:43 | disposition home or self-care (01) | PROVIDERS: PCP Physician Assistant; Visit Provider Internal Medicine Gastroenterology | DX: R13.10 Dysphagia, unspecified (principal) | CPT/HCPCS: 88305 ==

== ENCOUNTER 2023-12-16 08:03 | Day surgery (SDC) | payer MEDICARE, SELFPAY ==
[2023-12-04 08:13] VITALS: BMI 20.7
[2023-12-04 13:52] VITALS: BMI 20.1
[2023-12-16 08:44] VITALS: BP 110/62; PULSE 64; RESP 20; TEMP 36.1; O2SAT 99; BMI 20.6
[2023-12-16 09:04] LABS: Glucose Point of Care 84 mg/dl (65-105)
[2023-12-16] MEDS: LACTATED RINGERS 1,000 ML 150 ML IV CONT (09:05)
--- NOTE | 2023-12-16 09:11 | PM.HPGS ---
History of Present Illness History of Present Illness Consent: Risks, benefits, and alternatives have been discussed and questions answered. Patient agrees to proceed with procedure. Chief complaint: Dysphagia, Foreign Body Sensation in Throat Narrative: Inga Andre is a 63 year old female with complaints of dysphagia which started after she underwent oral surgery on 09/02/2022 for a jaw infection and deterioration that required reconstruction with bone grafts. She was treated with several antibiotics including amoxicillin twice and clindamycin for 8 weeks due to an abscess. On 09/16/2022, when she got her stitches out, she developed a yeast infection from the antibiotics. That evening around 5 pm, she took Diflucan and about an hour later while lying down, she started having trouble swallowing with a sensation at the base of her tongue. She also developed a rash on her trunk. She went to the ER due to concern for a reaction to the bone graft but was sent back to the oral surgeon the next day who said it was not related to the surgery and sent her back to the ER. In the ER, she was given IV steroids and Benadryl as well as a pack of prednisone and had CT soft tissue of the neck with no acute abnormalities. After the ER visit, her symptoms improved to only occurring once or twice a week but over the last 2 weeks, it has been steadily progressing and the last 2 nights have been really bad, especially at night and seems to be connected to when she takes her medications. The pills get stuck right about the base of her tongue Review of Systems Review of Systems: All systems reviewed & are unremarkable except as noted in HPI and below PMFSH Past Medical History Medical History Chronic constipation Colon cancer screening Diabetes type 2, controlled Early satiety GERD (gastroesophageal reflux disease) Hyperglycemia Hyperlipidemia Hypertension Hypothyroidism Liver cyst Mild scoliosis Retained myringotomy tube in right ear Right flank pain RUQ abdominal pain Vitamin D deficiency, unspecified Surgical History Surgical History History of biopsy History of hernia repair S/P tympanotomy with insertion of tube Family History Family History Father Family history of mental disorder Hypertension Mother Hypertension Family history of malignant neoplasm of breast in first degree relative Sibling Family history of thyroid disease Family history of malignant neoplasm of breast in first degree relative Other Family history of malignant neoplasm Social History Social History Smoking status: Never smoker Second hand tobacco smoke exposure: No Alcohol intake: current Alcohol use details: 1 per week Substance use: never Substance use type: does not use Do You Feel Safe in your Home?: Yes Lack of Transportation: No Lack of Food: Never True Current Housing: I Have Housing Concerned About Future Housing: No Difficulty Paying Gas/Electric Bills: No Difficulty Paying for Meds: No Currently Unemployed: No Education: Master's Degree or Higher Difficulty w/ Childcare or Family Care: No Living arrangements: with family Occupation/Education: occupation 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
--- NOTE | 2023-12-16 09:12 | WPDANESEPPF ---
Anes - Initial Pre Proc Eval Procedure: Operation Date: 12/16/23 10:00 Proposed Procedures p Esophagogastroduodenoscopy - Lukasz Dean MD Date/Time: 12/16/23 09:12 Surgeon: Lukasz Dean MD Pre Op Diagnosis: Dysphagia, Foreign Body Sensation in Throat Patient Data Age: 63 Gender: F Height: 1.57 m Weight: 51.15 kg Last Vital Signs Temp 36.1 C L 12/16/23 08:44 Pulse 64 12/16/23 08:44 Resp 20 12/16/23 08:44 BP 110/62 12/16/23 08:44 Pulse Ox 99 12/16/23 08:44 O2 Del Method Room Air 12/16/23 08:44 Allergies Allergy/AdvReac Type Severity Reaction Status Date / Time fluconazole [From Diflucan] Allergy Severe Anaphylaxis Verified 12/16/23 08:40 bee venom protein (honey bee) Allergy Intermediate hives Verified 12/16/23 08:40 Sulfa (Sulfonamide Allergy Intermediate HIVES Verified 12/16/23 08:40 Antibiotics) ciprofloxacin Allergy Mild nausea, Verified 12/16/23 08:40 trouble swallowing latex Allergy Mild Itching Verified 12/16/23 08:40 nitrofurantoin AdvReac Intermediate Nausea and Verified 12/16/23 08:40 Vomiting Home Medications Medication Instructions Recorded Confirmed Type ezetimibe 10 mg tablet 10 mg PO DAILY 02/04/21 12/16/23 History gabapentin 100 mg capsule 100 mg PO DAILY 04/02/21 12/16/23 History cholecalciferol (vitamin D3) 1,250 See Rx Instructions .Route 09/01/23 12/16/23 Rx mcg (50,000 unit) capsule .COMPLEX #3 caps levothyroxine 50 mcg tablet 50 mcg PO DAILY #90 tabs 11/06/23 12/16/23 Rx (Synthroid) metformin 500 mg tablet 250 mg PO TIDWMEAL #135 tabs 11/06/23 12/16/23 Rx blood sugar diagnostic (Accu-Chek #100 strips 12/01/23 12/03/23 Rx Christin Plus test strips) blood-glucose meter #1 ea 12/01/23 12/03/23 Rx lancets (Accu-Chek Softclix #100 ea 12/01/23 12/03/23 Rx Lancets) omeprazole 40 mg capsule,delayed 40 mg PO DAILY #30 caps 12/03/23 12/04/23 Rx release ondansetron HCl 4 mg tablet 4 - 8 mg PO Q8H PRN nausea and 12/03/23 12/04/23 Rx vomiting #60 tabs calcium carbonate (Antacid 200 mg PO DAILY 12/04/23 12/16/23 History (calcium carbonate)) hydrochlorothiazide 12.5 mg tablet 6.25 mg PO DAILY 12/04/23 12/16/23 History omeprazole 20 mg capsule,delayed See Rx Instructions .Route 12/16/23 Rx release .COMPLEX #90 caps Laboratory Tests 12/16/23 09:01 POC Capillary Glucose 84 mg/dl (65-105) Patient hx anesthesia problems: none Family hx anesthesia problems: none Results Review: All pre-operative results and documents have been reviewed as part of the pre-operative evaluation. [facility] Past Medical History Medical History Chronic constipation Colon cancer screening Diabetes type 2, controlled Early satiety GERD (gastroesophageal reflux disease) Hyperglycemia Hyperlipidemia Hypertension Hypothyroidism Liver cyst Mild scoliosis Retained myringotomy tube in right ear Right flank pain RUQ abdominal pain Vitamin D deficiency, unspecified Surgical History Surgical History History of biopsy History of hernia repair S/P tympanotomy with insertion of tube Family History Family History Father Family history of mental disorder Hypertension Mother Hypertension Family history of malignant neoplasm of breast in first degree relative Sibling Family history of thyroid disease Family history of malignant neoplasm of breast in first degree relative Other Family history of malignant neoplasm Social History Social History Smoking status: Never smoker Second hand tobacco smoke exposure: No Alcohol intake: current Alcohol use details: 1 per week Substance use: never Substance use type: does not use Do You Feel Safe in your Home?: Yes Lack of Transportation: No Lack of Fo
[2023-12-16 09:56] VITALS: BP 109/60; PULSE 73; RESP 16; O2SAT 100
[2023-12-16 10:06] VITALS: BP 105/64; PULSE 68; RESP 18; O2SAT 100
[2023-12-16 10:16] VITALS: BP 111/69; PULSE 66; RESP 20; O2SAT 100
--- NOTE | 2023-12-16 10:43 | WPDANESPN ---
Anes - Prog Note Post-Op Date/Time: 12/16/23 10:43 Cardiovascular status: normal Respiratory status: normal Airway patency: baseline Mental status: baseline Post-Op hydration status: normal Vital Signs: Last Vital Signs Temp 36.1 C L 12/16/23 08:44 Pulse 66 12/16/23 10:16 Resp 20 12/16/23 10:16 BP 111/69 12/16/23 10:16 Pulse Ox 100 12/16/23 10:16 O2 Del Method Room Air 12/16/23 10:16 Pain Score (VAS): 0/10 I/O: Intake & Output 12/15/23 12/16/23 12/16/23 23:59 07:59 15:59 Intake Total 800 Balance 800 12/16/23 09:01 POC Capillary Glucose 84 Patient Feedback: Patient satisfied with anesthetic care.
== END 2023-12-16 10:35 | disposition home or self-care (01) ==
PROVIDERS: PCP Physician Assistant; Visit Provider Internal Medicine Gastroenterology
PROC: 0DJ08ZZ Inspection of Upper Intestinal Tract, Via Natural or Artificial Opening Endoscopic (ICD-10-PCS; CPT 43235; principal; 2023-12-16 10:00)
DX: R13.19 Other dysphagia (principal); K21.9 Gastro-esophageal reflux disease without esophagitis
CPT/HCPCS: 43239

== ENCOUNTER 2024-02-11 17:07 | Emergency (ER) | payer MEDICARE, SELFPAY ==
[2024-02-11 17:17] VITALS: BP 143/72; PULSE 72; RESP 16; TEMP 36.3; O2SAT 100
[2024-02-11 17:20] VITALS: BP 143/72; PULSE 72; RESP 16; TEMP 36.3; O2SAT 100
--- NOTE | 2024-02-11 17:33 | ED.SKABFB ---
HPI - Skin/Abscess/Foreign Bdy General Chief complaint: Skin/Abscess/Foreign Body Stated complaint: spider bite Time Seen by Provider: 02/11/24 17:33 Source: patient Mode of arrival: ambulatory Limitations: no limitations History of Present Illness HPI narrative: 63-year-old female presents with complaint of redness, swelling, itching to left arm. Patient concerned for spider bite. Patient taking Benadryl with no relief of symptoms. Has not tried any vaxe-via-hljcozl steroid cream. Reports that pain is mild. Afebrile. All systems reviewed and negative except as noted above. Related Data Home Medications Medication Instructions Recorded Confirmed ezetimibe 10 mg tablet 10 mg PO DAILY 02/04/21 02/11/24 gabapentin 100 mg capsule 100 mg PO DAILY 04/02/21 02/11/24 calcium carbonate (Antacid 200 mg PO DAILY 12/04/23 02/11/24 (calcium carbonate)) hydrochlorothiazide 12.5 mg tablet 6.25 mg PO DAILY 12/04/23 02/11/24 Allergies Allergy/AdvReac Type Severity Reaction Status Date / Time fluconazole [From Diflucan] Allergy Severe Anaphylaxis Verified 02/11/24 17:19 bee venom protein (honey bee) Allergy Intermediate hives Verified 02/11/24 17:19 Sulfa (Sulfonamide Allergy Intermediate HIVES Verified 02/11/24 17:19 Antibiotics) ciprofloxacin Allergy Mild nausea, Verified 02/11/24 17:19 trouble swallowing latex Allergy Mild Itching Verified 02/11/24 17:19 nitrofurantoin AdvReac Intermediate Nausea and Verified 02/11/24 17:19 Vomiting Review of Systems Review of Systems: CONSTITUTIONAL: Denies fever, chills, or sweats. EYES: Denies visual changes, redness, or discharge. ENT: Denies rhinorrhea, congestion, sore throat, or otalgia. CARDIOVASCULAR: Denies chest pain, palpitations, or edema. RESPIRATORY: Denies cough or dyspnea. GASTROINTESTINAL: Denies abdominal pain, nausea, vomiting, or diarrhea. GENITOURINARY: Denies dysuria or hematuria. SKIN: Denies rash or itching. Reports insect bite to left arm. MUSCULOSKELETAL: Denies back pain, joint pain, or myalgia. NEUROLOGIC: Denies headache, numbness, or weakness. PSYCHIATRIC: Denies anxiety or depression. All other systems reviewed are negative, except as documented in HPI. [facility] Past Medical History Medical History Chronic constipation Colon cancer screening Diabetes type 2, controlled Early satiety GERD (gastroesophageal reflux disease) Hyperglycemia Hyperlipidemia Hypertension Hypothyroidism Liver cyst Mild scoliosis Retained myringotomy tube in right ear Right flank pain RUQ abdominal pain Vitamin D deficiency, unspecified Surgical History Surgical History History of biopsy History of hernia repair S/P tympanotomy with insertion of tube Family History Family History Father Family history of mental disorder Hypertension Mother Hypertension Family history of malignant neoplasm of breast in first degree relative Sibling Family history of thyroid disease Family history of malignant neoplasm of breast in first degree relative Other Family history of malignant neoplasm Social History Social History Smoking status: Never smoker Second hand tobacco smoke exposure: No Alcohol intake: current Alcohol use details: 1 per week Substance use: never Substance use type: does not use Do You Feel Safe in your Home?: Yes Lack of Transportation: No Lack of Food: Never True Current Housing: I Have Housing Concerned About Future Housing: No Difficulty Paying Gas/Electric Bills: No Difficulty Paying for Meds: No Currently Unemployed: No Education: Master's Degree or Higher Difficulty w/ Childcare or Family Care: No Living arrangements: with family Occupation/Education: occupation Additional occupat
== END 2024-02-11 17:46 | disposition home or self-care (01) ==
PROVIDERS: Emergency Provider Nurse Practitioner Family; PCP Physician Assistant
DX: S50.862A Insect bite (nonvenomous) of left forearm, initial encounter (principal); W57.XXXA Bitten or stung by nonvenomous insect and other nonvenomous arthropods, initial encounter; E11.9 Type 2 diabetes mellitus without complications; K21.9 Gastro-esophageal reflux disease without esophagitis; E78.5 Hyperlipidemia, unspecified; I10 Essential (primary) hypertension; E03.9 Hypothyroidism, unspecified
CPT/HCPCS: 99213; G0463

== ENCOUNTER 2024-03-19 07:40 | Outpatient (CLI) | payer MEDICARE, SELFPAY ==
--- NOTE | ~2024-03-19 | US_ITS ---
EXAMINATION: US aorta [facility] scr[facility] DATE: 03/19/2024 08:10 INDICATION: Abdominal aortic aneurysm screening. TECHNIQUE: Grayscale, color Doppler, and pulsed Doppler images of the aorta and common iliac arteries were obtained. COMPARISON: None. FINDINGS: The aorta is normal in caliber. The right common iliac artery is normal in caliber. The left common i liac artery is normal in caliber. IMPRESSION: 1. No abdominal aortic aneurysm. Reviewed, dictated and finalized at location A.
== END 2024-03-19 07:41 | disposition home or self-care (01) ==
LOC: MICIMG 07:42
PROVIDERS: PCP Physician Assistant; Visit Provider Physician Assistant
DX: I10 Essential (primary) hypertension (principal)
CPT/HCPCS: 76706

== ENCOUNTER 2024-07-23 10:21 | Outpatient (CLI) | payer MEDICARE, SELFPAY ==
--- NOTE | ~2024-07-23 | CT_ITS ---
EXAMINATION: CT abdomen pelvis w con DATE: 07/23/2024 10:49 INDICATION: Right inguinal pain TECHNIQUE: Computed tomography (CT) of the abdomen and pelvis was performed with 100 mL Omnipaque-350 intravenous contrast. Automated exposure control and iterative reconstruction technique were employe d. The dose-length product was 240.57 mGy-cm. COMPARISON: 03/15/2022 FINDINGS: Mild dependent atelectasis in bilateral lower lobes. Heart size normal. No pericardial or pleural eff usion. 5 mm hepatic cyst gallbladder, spleen, pancreas, bilateral adrenal glands and kidneys are norm al. Large amount of stool throughout the colon suggestive of constipation. Small bowel and appendix a re normal. Postoperative change of a right lower quadrant ventral hernia repair. Bladder, uterus and bilateral adnexa are unremarkable. No free intraperitoneal gas or fluid. No pathologically enlarged a bdominal or pelvic lymphadenopathy. Lumbar levoscoliosis with severe spondylosis. IMPRESSION: 1. Large amount of colonic stool suggestive of constipation. No other acute intra-abdominal/pelvic pr ocess. Reviewed, dictated and finalized at location A. TICISER IMPRESSION: 1. Large amount of colonic stool suggestive of constipation. No other acute int ra-abdominal/pelvic process.
[2024-07-23 10:39] LABS: Estimated Glomerular Filt Rate > 60
== END 2024-07-23 10:22 | disposition home or self-care (01) ==
LOC: MICIMG 10:22
PROVIDERS: PCP Physician Assistant; Visit Provider Physician Assistant
DX: R10.31 Right lower quadrant pain (principal)
CPT/HCPCS: 74177; Q9967

== ENCOUNTER 2024-10-15 08:07 | Emergency (ER) | payer MEDICARE, SELFPAY ==
--- NOTE | 2024-10-15 08:09 | ECG_ITS ---
Test Date: 2024-10-15 08:17:14 Measurements Intervals [place] Rate: 71 P: 59 AK: 191 QRS: 46 QRSD: 77 T: 31 QT: 374 QTc: 407 Interpretive Statements SINUS RHYTHM MODERATE ST DEPRESSION [0.05+ mV ST DEPRESSION] No previous ECG available for comparison Electronically Signed On 10-15-2024 12:17:33 CDT by Kourtney Perez M.D.
[2024-10-15 08:12] VITALS: BP 153/83; PULSE 68; RESP 20; TEMP 36.6; O2SAT 100
--- OUTSIDE RECORDS SUMMARY | 2024-10-15 08:13 | XMS_ITS | Patient Health Record ---
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 Name Role Phone Dayana Slade Primary Care Provider UnavailYunior Issa Unavailable [phone] Allergies Allergen (clinical drug ingredient) Drug/Non Drug Allergy documented on EMR Reaction Allergy Type Onset Date Status bee sting (uncoded) hives, chill s, goosebumps Allergy Active Ciprofoxacin (uncoded) intolerance Allergy Active fluconazole Diflucan (uncoded) swallowing Allergy Active Latex Latex (uncoded) rash, irritation Allergy Active Nitrofurantoin mono/mac (uncoded) (swallowing, nausea) Allergy Active Substance with sulfonamide structure and antibacterial mechanism of action (substance) Sulfa Drugs (uncoded) Allergies, rash Allergy Active Reason For Referral No Information Medications Medication SIG (Take, Route, Frequency, Duration) Notes Start Date End Date Status EPINEPHrine 0.3 MG/0.3ML as directed Injection as needed for 30 days 03/08/2024 Active Methyl B-12 1000 MCG as directed Orally Active MiraLax 17 GM/SCOOP 1 scoop mixed with 8 ounces of fluid Orally Once a day Active Fiber 500 MG as directed Orally Active Synthroid 25 MCG 1 tablet in the morning on an empty stomach Orally Once a day Active metFORMIN HCl 500 MG 1 tablet with a marcia l Orally Once a day Active Gabapentin 100 MG 1 capsule Orally Once a day Active Estradiol Active Calcium Carbonate 600 MG 1 tablet with f ood Orally Twice a day Active Docusate Sodium 100 MG 1 capsule as need ed Orally Once a day Not-Taking Probiotic 250 MG as directed Orally Active Vitamin C 125 MG as directed Orally Not-Taking Vitamin D3 Active hydroCHLOROthiazide 12.5 MG 1 capsule in the morning Orally Once a day Active Ezetimibe 10 MG 1 tablet Orally Once a day Active Immunizations Vaccine Route Administration Date Status Comme nts [facility] Quadrivalent Unknown 07/07/2017 Administered Po rtal Information Hepatitis B (20 and more) Unknown 03/28/2024 Administer ed Portal Information Influenza Unknown 04/26/2022 Administered Portal Infor mation NOC Pneumovax 23 Unknown 04/27/2012 Administered Portal Information NOC Tdap Unknown 10/06/1998 Administered Portal Infor mation Social History Tobacco Use: Social History Observation Description Date Details (start date - stop date) Never Smoker NA - NA Tobacco Control (Standard) Question Answer Notes Tobacco use: Nonsmoker Problems Problem Type SNOMED Code ICD Code Onset Dates Problem Status W/U Status Risk Notes Problem Dysphagia (12215327) Dysphagia, unspecified (R13.10) Active confirmed Problem Allergy to bee venom (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) Active confirmed Problem 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) Active confirmed Vital Signs Oximetry 100 % 03/08/2024 Blood pressure diastolic 72 mm Hg 03/08/2024 Height 62 in 03/08/2024 Blood pressure systolic 119 mm Hg 03/08/2024 Weight 113.6 lbs 03/08/2024 BMI 20.78 kg/m2 03/08/2024 Encounters Encounter Location Date Provider Diagnosis [facility] [address] [place] [address] [place] [phone] 12/01/2023 Yunior Greff Dysphagia, unspecified R13.[address] [place] [phone] 03/08/2024 Yunior Greff Dysphagia, unspecified R13.10 ; Bee allergy status Z91.030 and Latex allergy status Z91.040 Assessments Encounter Date Diagnosis (ICD Code) Assessment Notes Treatment Notes Treatment Clinical Notes Section Notes 12/01/2023 Dysphagia, unspecified (ICD-10 - R13.10) Onset of dysphagia and tongue swelling approx 1 hour after taking Fluconazole for yeast infection secondary to multiple weeks of abx for tooth access. She denies any other symptoms during this time. Review of records from ED show no signs of swelling on PE of multiple CTs of the neck. Review of photos without appreciable tongue swelling or hives. This issue has persisted despite stopping Fluconazole, only occurring in the setting of ingesting pills. Has been to ED/urgent care multiple times with multiple doses of steroids. Off antihistamines for the past week with no difference. She does report history of stomach ulcers and NERD with dx in 2022. Hx is not c/w with an IgE-mediated hypersensitivity reaction. History sounds more c/w with underlying esophageal/motility disorder. Set to establish with GI at [place] this week. Advised to keep journal if any other systemic symptoms occur 03/08/2024 Dysphagia, unspecified (ICD-10 - R13.10) Onset of dysphagia and tongue swelling approx 1 hour after taking Fluconazole for yeast infection secondary to multiple weeks of abx for tooth access. She denies any other symptoms during this time. Review of records from ED show no signs of swelling on PE of multiple CTs of the neck. Review of photos without appreciable tongue swelling or hives. This issue has persisted despite stopping Fluconazole, only occurring in the setting of ingesting pills. Has been to ED/urgent care multiple times with multiple doses of steroids. Off antihistamines for the past week with no difference. She does report history of stomach ulcers and NERD with dx in 2022. Hx is not c/w with an IgE-mediated hypersensitivity reaction. History sounds more c/w with underlying esophageal/motility disorder. She has since establsihed with GI at [place] showing NERD with concern for Sjogren's though work-up with PCP was negative. No current reflux medications and continues to feel a globulus sensation. Advised to keep journal if any other systemic symptoms occur. Keep follow-up with GI to discuss reflux medication regimen 03/08/2024 Bee allergy status (ICD-10 - Z91.030) Reported hives and chills after a bee sting as a child. Seen by PCP and treated with Benadryl with resolution. No interval stings. No AIE on hand. She denies other symptoms at the time though history is unclear. No interval stings. History is concerning for IgE-mediated hypersensitivity reaction. AIE education given. Keep AIE on hand at all times. Advised stinging insect testing which she is considering 03/08/2024 Latex allergy status (ICD-10 - Z91.040) Reported rash after using latex band at hospital. No other symptoms. That said, she reports blowing up latex balloons without issue. History is not c/w IgE mediated response. No further work-up needed at this point 12/01/2023 Other 03/08/2024 Other Plan Of Treatment No Information Insurance Providers Payer Name Payer Address Payer Phone Subscriber Number Group Number Insured Name Patient Relationship to Insured Coverage Start Date Coverage End Date [employer] [address] [place] [phone] [id number] Inga Andre Self - patient is the insured Medical (General) History Medical History History ICD Code high blood pressure diabetes thyriod disease nerd Surgical History Surgery Date(Month/Year) hernia repair 11/28/2017 myringotomy/ 09/20/2019 myringotomy/tympanostomy 10/06/2019 myringotomy/tympanostomy 05/05/2023 oral surgery tooth extraction, extensive bone graft 09/03/2023 cryosurgery remove precancer cells on no se 10/31/2023
--- OUTSIDE RECORDS SUMMARY | 2024-10-15 08:13 | XMS_ITS | Referral Summary ---
Author Organization [facility] al Address [address] [place] [address] Care Team Providers Care Process Laboratory Specialist Name Role Phone Dayana Slade Primary Care Pr ovider Rosalinda Goyal MD Unavailable [phone] Juan C Kamara MD Unavailable [phone] Jolene Zhang ORNAMENT MAKER HAND Unavailable [phone] Sara Pradhan MD Unavailable [phone] Encounters Date Type Department Care Team Description 09/30/2024 2:00 PM CDT Office Visit [place] [facility] ENT [address] [facility] 11th [place] [address] [place] [address] Jolene Zhang, ORNAMENT MAKER HAND Dysfunction of right eustachian tube (Primary Dx); Sensorineural hearing loss (SNHL) of both ears from Last 3 Months Allergies Active Allergy Reactions Criticality Noted Date Comments Venom-Honey Bee Hives Medium 02/21/2022 Ciprofloxacin Vomiting,Stomach upset,Nausea And Vomiting,Nausea & Vomiting Medium 08/15/2021 Fluconazole Anaphylaxis,Hives High 09/17/2023 Latex Rash Medium 03/26/2017 Nitrofurantoin Diarrhea Low 09/29/2016 Sulfa (Sulfonamide Antibiotics) Hives,Rash High 04/13/2016 Sulfamethoxazole-Trimethoprim Unknown 2019 Sulfasalazine Urticaria Medium 04/13/2016 Medications ONETOUCH ULTRA BLUE TEST STRIP strip Active ONETOUCH DELICA LANCETS 30 gauge misc 2 (two) times a day. Active metFORMIN (GLUCOPHAGE) 500 mg tabletIndications :type 2 diabetes mellitus 1 tablet (500 mg total) 2 (two) times a day with meals Active cholecalciferol (VITAMIN D-3) 50,000 unit capsule TK 1 C PO ONCE A MONTH 1 Active hydroCHLOROthiazi de (HYDRODIURIL) 25 mg tablet Take 1 tablet (25 mg total) by mouth daily Active gabapentin (NEURONTIN) 100 mg capsule gabapentin 100 mg capsule TAKE ONE CAPSULE BY MOUTH EVERY DAY Active ezetimibe (ZETIA) 10 mg tablet ezetimibe 10 mg tablet TAKE 1 TABLET BY MOUTH EVERY DAY IN THE EVENING Active Tums 300 mg (750 mg) tablet,chewable Take 1 tablet (750 mg total) by mouth daily Active ascorbic acid, vitamin C, 125 mg tablet,chewable Acti ve acetaminophen (TYLENOL) 500 mg tablet Take 2 tablets (1,000 mg total) by mouth every 6 (six) hours as needed for pain Active polyethylene glycol 3350 (MIRALAX ORAL) Active meloxicam (MOBIC) 15 mg tablet Active ondansetron ODT (ZOFRAN-ODT) 4 mg disintegrating tabletIndications :Acute non-recurrent pansinusitis Take 1 tablet (4 mg total) by mouth every 8 (eight) hours as needed for nausea or vomiting 14 tablet 023 Active Synthroid 50 mcg tablet Active methylPREDNISolon e (MEDROL DOSEPACK) 4 mg Dosepack FOLLOW PACKAGE DIRECTIONS Active atorvastatin (LIPITOR) 10 mg tablet Take 1 tablet (10 mg total) by mouth daily 30 tablet 2024 Active Additional Information Patient not taking.Reported on 04/28/2024 mecobalamin, vitamin B12, 1,000 mcg lozenge as directed Orally Active psyllium husk (METAMUCIL ORAL) Take by mouth Active estradioL (ESTRACE) 0.01 % (0.1 mg/gram) vaginal creamIndications: vaginal atrophy Insert 1 g into the vagina 3 (three) times a week 42.5 g 3 Active Additional Information Patient not taking.Reported on 04/28/2024 Accu-Chek Guide Me Glucose Mtr misc USE TO MONITOR BLOOD SUGAR LEVELS DIRECTED Active EPINEPHrine 0.3 mg/0.3 mL auto-injection syringe Inject 0.3 mL (0.3 mg total) under the skin Active triamcinolone (KENALOG) 0.1 % cream APPLY TOPICALLY TO INSECT BITE TWICE DAILY NEEDED Active albuterol HFA (PROVENTIL HFA,VENTOLIN HFA,PROAIR HFA) 90 mcg/actuation inhaler INHALE 2 INHALATION BY MOUTH FOUR TIMES DAILY Active azithromycin (ZITHROMAX) 250 mg tablet Active clindamycin (CLEOCIN) 300 mg capsule Take 1 capsule (300 mg total) by mouth every 6 (six) hours 2024 Discontinued doxycycline hyclate 100 mg capsule TAKE 1 CAPSULE BY MOUTH TWICE DAILY FOR 7 DAYS 2024 Discontinued Active Problems Problem Noted Date Diagnosed Date Iron deficiency 04/05/2024 Murmur 05/13/2023 Abnormal blood chemistry level 09/18/2022 0 11/05/2022 Headache 09/18/2022 11/05/2022 Hypokalemia 09/18/2022 11/05/2022 Nausea 05/16/2022 11/05/2022 Pneumonia 05/16/2022 11/05/2022 Left sided abdominal pain 03/06/20222022 Right upper quadrant pain 02/26/20222022 Excessive cerumen in ear canal 01/07/2022 0 11/05/2022 Acute urinary tract infection 08/16/2021 Lower urinary tract symptoms 08/16/2021 Flank pain 08/08/2021 Migraine 07/05/2021 Urinary frequency 10/03/2020 Benign essential hypertension 06/14/2020 Osteoporosis 08/25/2019 Osteoporosis, post-menopausal 08/20/2019 Inguinal hernia of right akua e without obstruction or gangrene 11/18/2017 Overview (11/18/2017): Added automatically from request for surgery [id number] Hypothyroidism 11/12/2017 Pre-diabetes 11/12/2017 High cholesterol 11/12/2017 Hip pain 11/12/2017 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 Resolved Problems Problem Noted Date Diagnosed Date Resolved Date Post-menopausal bleeding 10/24/2016 Immunizations Immunization Administration Dates Next Due Wholesome Pets Sars-CoV-2 Vaccination 08/17/2020, Influenza, Quadrivalent, Coretta l Culture-based MDCK, Preservative Free, Antibiotic Free, Intramuscular 03/28/2020 Influenza, Quadrivalent, Spl it, Preservative Free, Intramuscular 04/26/2022,03/27/2018 Influenza, Trivalent, IM (MDV) 04/27/2012 Influenza, Trivalent, Preservative Free, Intramu scular 07/07/2017 Influenza, Unspecified 06/16/2013,05/07/2012 Pfizer SARS-CoV-2 Monovalent Vaccination (12+ Yrs) WILBURN-READY TO USE 01/17/2022 Pneumococcal Polysaccharide PPV23 04/27/2012 Social History Tobacco Use Types Packs/Day Years Used Date Smoking Tobacco: Never Smokeless Tobacco: Never Tobacco Cessation:Counseling Given: Not Answered Alcohol Use Standard Drinks/Week Comments Yes 3 (1 standard drink = 0.6 oz pur e alcohol) twice a month AUDIT-C Answer Date Recorded Q1: How often do you have a drink containing alc ohol? 2-3 times a week 02/21/2022 Q2: How many drinks containi ng alcohol do you have on a typical day when you are drinking? 1 or 2 02/21/2022 Q3: How often do you have si x or more drinks on one occasion? Weekly 02/21/2022 Exercise Vital Sign Answer Date Recorde d On average, how many days pe r week do you engage in moderate to strenuous exercise (like a brisk walk)? 0 days 08/19/2019 On average, how many minutes do you engage in exercise at this level? 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 on file Not on file Last Filed Vital Signs Vital Sign Reading Time Taken Comments Blood Pressure 114/72 01/30/2024 8:14 AM CDT Pulse 66 01/30/2024 8:14 AM CDT Temperature 36.8 C (98.3 F) 09/24/2023 11:26 AM CDT Respiratory Rate 16 09/24/2023 11:26 AM CDT Oxygen Saturation 99% 09/24/2023 11:26 AM CDT Inhaled Oxygen Concentration - - Weight 51.4 kg (113 lb 4.8 oz) 04/28/2024 11:30 AM TRAUMA SURGEON Height 156.2 cm (5' 1.5 ) 04/28/2024 11:30 AM CS T Body Mass Index 21.06 04/28/2024 11:30 AM TRAUMA SURGEON Plan of Treatment Not on file Medical Devices Implanted Type Area Net Front End Developer Device Identifier Shelf Expiration Date Model / Serial / Lot [employer] [id number] Ventralight St Sepra 6x4in Monofilament Absorbable Low Profile - [id number] Implanted:Qty: 1 on 11/27/2017 by Rosalino Young MD PhD at [facility] Right: Groin [employer] 09/04/2019 [id number] / / Procedures Procedure Name Priority Date/Time Associated Diagnosis Comments SCREENING MAMMOGRAM BILATERAL W MARIO Schedule Routine, Read Routine (OP Routine) 12/23/2023 10:54 AM CDT Screening mammogram for breast cancer DEXA TBS AXIAL SKELETON BONE DENSITY 1 OR MORE SITES Schedule Routine, Read Routine (OP Routine) 10/29/2023 3:33 PM CDT Osteoporosis, post-menopausal PAP SMEAR WITH HPV Routine 07/15/2012 HM COLONOSCOPY Routine 06/09/2009 from Last 3 Months or Most Recently Relevant to Health Maintenance Results * Screening Mammogram Bilateral W Mario (12/23/2023 10:54 AM CDT) Anatomical Region Laterality Modality Breast Bilateral Mammography Impressions 12/23/2023 5:04 PM CDT BI-RADS ATLAS category (overall): 1 - Negative There is no mammographic evidence of malignancy. A 1 year screening mammogram is recommended. The patient has been or will be contacted. We recommend annual screening mammography for women at average risk of breast cancer beginning at age 40, based on guidelines of the [place] [employer] (ACR Practice Parameter for the Performance of Screening and Diagnostic Mammography) and [place] [employer]. For women with and elevated risk of breast cancer, please refer to the ACR Practice Parameter for specific screening recommendations. The patient will be entered into a reminder system with a target due date of 1 year for her next screening exam. Narrative 12/23/2023 5:04 PM CDT Screening Mammogram Bilateral W Mario: 12/23/23 The study was acquired using full field digital technology and interpreted from soft copy. 2D digital mammographic views, as well as 3D digital tomosynthesis were performed in the CC and MLO projections. CLINICAL: Screening mammogram for breast cancer. No relevant medical history has been documented for this patient. History of breast cancer in Mother, Mother's Sister. COMPARISONS: 11/05/2022 Screening Mammogram Bilateral W Mario 10/18/2021 Screening Mammogram Bilateral W Mario 10/03/2020 Screening Mammogram Bilateral W Mario 01/11/2015 Screening Mammogram BREAST TISSUE: The breasts have scattered areas of fibroglandular density. FINDINGS: No suspicious masses, suspicious calcifications, or other suspicious findings are seen within either breast. There has been no suspicious change. us Self Screening Mammogram IMG MAMMO PROCEDURES Fi nal Result * Dexa TBS Axial Skeleton Bone Density 1 or more sites (10/29/2023 3:33 PM CDT) Anatomical Region Laterality Modality Wrist, Body N/A Radiographic Flavia ging Narrative 10/31/2023 9:32 AM CDT Patient Name: Inga Crocker Date of : 1960 Date of scan: 10/29/2023 Bone mineral density was performed on a [employer] Discovery Densitometer. Based on machine cross-calibration and precision studies the least significant changes of this densitometer is 0.024 g/cm2 at the spine, 0.020 g/cm2 at the total proximal femur, and 0.014g/cm2 at the forearm. HISTORY: This is a 62 y.o. postmenopausal female with a history of osteoporosis, thyroid disease, and vitamin D deficiency. She reports that she has never smoked. She has never used smokeless tobacco. Currently on treatment with calcium, vitamin D, thyroid hormone, and diuretics. INDICATIONS: Menopause status, vitamin D deficiency, and history of osteoporosis. FINDINGS: BONE MINERAL DENSITY OF THE LUMBAR SPINE Bone Mineral Density (BMD) of the lumbar spine was measured from L1-L3 and the average density was calculated to be 0.856 gm/cm2. This corresponds to a T-score (standard deviations from the mean of young adults) of -1.5. When compared to the previous study of 10/23/2021 there has been a -0.028 gm/cm (-3.2%) decrease in bone density that is considered significant. BONE MINERAL DENSITY OF THE PROXIMAL FEMUR Bone Mineral Density (BMD) of the left hip total was found to be 0.625 gm/cm2. This corresponds to a T-score standard deviations from the mean of young adults of -2.6. Femoral neck is 0.563 gm/cm2 with a T-score (standard deviations from the mean of young adults) of -2.6. When compared to the previous study of 10/23/2021 there has been a -0.067 gm/cm (-9.7%) decrease in bone density that is considered significant. SUMMARY: Bone mineral density shows evidence of osteoporosis and marked increase risk of fracture. There has been a significant decrease in bone density since previous measurement. L4 excluded from bone mineral density analysis of the lumbar spine because of bone density being more than 1 standard deviation discrepant relative to one adjacent vertebra. Clinical correlation is recommended. The lumbar spine Trabecular Bone Score is 1.219 which suggests partially degraded bone microarchitecture compared to the general population. Final decisions regarding diagnostic or therapeutic recommendations should include BMD, TBS, additional clinical risk factors as well the clinical context of the patient. Please see attached TBS results for further details. ADDITIONAL COMMENTS: Postmenopausal Women and Men Over 50: Diagnostic criteria: Osteoporosis: BMD at or below -2.5 T-score; Osteopenia (low bone mass): BMD between -1.0 and -2.5 T-score. If the patient has a history of a fragility fracture, a fracture that occurred with trauma equivalent to a fall from a standing position or less, then the diagnosis is osteoporosis regardless of bone density. The history and data sections of the bone mineral density scan were prepared by Yola Resendiz)(CBDT) who is accredited by the International Society of Clinical Densitometry. The overall patient assessment and scan interpretation were performed by Rubia Dunbar M.D. who is certified by the International Society of Clinical Densitometry. [id number] Rubia Dunbar MD IMG DXA PROCEDURES Final Resu lt * PAP SMEAR WITH HPV (07/15/2012) Pap smear Normal Historical Provider HEALTH MAINTENANCE Final Result * COLONOSCOPY (06/09/2009) Colonoscopy Normal Historical Provider HEALTH MAINTENANCE Final Result from Last 3 Months or Most Recently Relevant to Health Maintenance Insurance AETNA MEDICARE [facility] AETNA MEDICARE Care Teams Process Laboratory Specialist Relationship Specialty Start Date End Date Dayana Slade PA PCP - General Physician Barrel Lathe Operator Inside 12/22/19 Rosalinda Goyal MD [address] [place] [address] Neurologist Neurology 05/28/23 Juan C Kamara MD [address] [place] [address] Referring Physician Neurology 05/28/23 Jolene Zhang, ORNAMENT MAKER HAND [address] DEPT OTOLARYNGOLOGY, [facility] [address] [place] [address] Nurse Practitioner Otolaryngology 05/28/23 Sara Pradhan MD [address] [place] [address] Consulting Physician Endocrinology Diabetes & Metabolism 05/28/23
--- OUTSIDE RECORDS SUMMARY | 2024-10-15 08:13 | XMS_ITS | Clinical Summary ---
Author Organization [facility] al Address [address] [place] [address] Care Team Providers Care Electrical Instrument Repairer Name Role Phone Dayana Slade Primary Care Pr ovider Rosalinda Goyal MD Unavailable [phone] Juan C Kamara MD Unavailable [phone] Jolene Zhang NP Unavailable [phone] Sara Pradhan MD Unavailable [phone] Allergies Active Allergy Reactions Criticality Noted Date Comments Venom-Honey Bee Hives Medium 02/21/2022 Ciprofloxacin Vomiting,Stomach upset,Nausea And Vomiting,Nausea & Vomiting Medium 08/15/2021 Fluconazole Anaphylaxis,Hives High 09/17/2023 Latex Rash Medium 03/26/2017 Nitrofurantoin Diarrhea Low 09/29/2016 Sulfa (Sulfonamide Antibiotics) Hives,Rash High 04/13/2016 Sulfamethoxazole-Trimethoprim Unknown 2019 Sulfasalazine Urticaria Medium 04/13/2016 Medications ONETOUCH ULTRA BLUE TEST STRIP strip 018 Active ONETOUCH DELICA LANCETS 30 gauge misc 2 (two) times a day. 11 018 Active metFORMIN (GLUCOPHAGE) 500 mg tabletIndications :type 2 diabetes mellitus 1 tablet (500 mg total) 2 (two) times a day with meals 018 Active cholecalciferol (VITAMIN D-3) 50,000 unit capsule TK 1 C PO ONCE A MONTH 1 01/28/2 019 Active hydroCHLOROthiazi de (HYDRODIURIL) 25 mg tablet [...] needed for nausea or vomiting 14 tablet Active Synthroid 50 mcg tablet Active methylPREDNISolon e (MEDROL DOSEPACK) 4 mg Dosepack FOLLOW PACKAGE DIRECTIONS Active atorvastatin (LIPITOR) 10 mg tablet Take 1 tablet (10 mg total) by mouth daily 30 tablet 11 2024 Active Additional Information Patient not taking.Reported [...] (11/18/2017): Added automatically from request for surgery [id number] Hypothyroidism 11/12/2017 Pre-diabetes 11/12/2017 High cholesterol 11/12/2017 Hip pain 11/12/2017 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 Resolved Problems Problem Noted Date Diagnosed Date Resolved Date Post-menopausal bleeding 10/24/2016 Encounters Date Type Department Care Team Description 09/30/2024 2:00 PM CDT Office Visit [place] [facility] - [facility] ENT [address] [facility] 11th [place] [address] [place] [address] Jolene Zhang, LASHAE Dysfunction of right eustachian tube (Primary Dx); Sensorineural hearing loss (SNHL) of both ears from Last 3 Months Immunizations Immunization Administration Dates Next Due [employer] Sars-CoV-2 Vaccination 08/17/2020, Influenza, Quadrivalent, Coretta l Culture-based MDCK, Preservative Free, Antibiotic Free, Intramuscular 03/28/2020 Influenza, Quadrivalent, Spl it, Preservative Free, Intramuscular 04/26/2022,03/27/2018 Influenza, Trivalent, IM (MDV) 04/27/2012 Influenza, Trivalent, Preservative Free, Intramu scular 07/07/2017 Influenza, Unspecified 06/16/2013,05/07/2012 Pfizer SARS-CoV-2 Monovalent Vaccination (12+ Yrs) WILBURN-READY TO USE 01/17/2022 Pneumococcal Polysaccharide PPV23 04/27/2012 Surgical History Surgery Date Site/Laterality Comments RI HYSTEROSCOPY BX ENDOMETRIUM&/POLYPC W/WO D&C 06/09/2016 - 06/08/2017 Hysteroscopy - (Added by TW Conv) CRYOABLATION 06/09/2001 - 06/08/2002 cervical DILATION AND CURETTAGE, DIAGNOSTIC / THERAPEUTIC 1980s WISDOM TOOTH EXTRACTION TOENAIL EXCISION 06/09/2013 - 06/08/2014 COLPOSCOPY VULVA W/ BIOPSY 06/09/2001 - 06/08/2002 SKIN LESION EXCISION 06/09/2015 - 06/08/2016 mole removal bx-with local anesthesia COLONOSCOPY EAR SURGERY HERNIA REPAIR 06/09/2013 - 06/08/2014 Medical History Medical History Date Comments Hypertension Vitamin D deficiency Diabetes (HCC) Hyperlipidemia Anemia Hypokalemia Anxiety 1-2 panic attack s over last 6 months. Claustophobic, does not do well in MRIs Cellulitis Parotitis Osteopetrosis Bleeding disorder Ear problems Type 2 diabetes mellitus (HCC) Autoimmune disease Migraine Thyroid disease TMJ dysfunction GERD (gastroesophageal reflux disease) 2-3-23 Osteoporosis Peptic ulceration 2-3-23 Nausea 05/16/2022 Family History Medical History Relation Name Comments Scoliosis Daughter Arthritis Father Fred Cancer Father Fred Heart disease Father Fred Hypertension Father Fred Hypertension - (Added by TW Conv) Breast cancer Mother Reina Breast Cancer - (Added by TW Conv) Cancer Mother Reina Hypertension Mother Reina Hypertension - (Added by TW Conv) Breast cancer Mother's Sister Breast Canc er - (Added by TW Conv) Autoimmune disease Sister Kathleen Davila Osteoporosis Sister Kathleen Davila Snoring Sister Kathleen Davila Thyroid disease Sister Kathleen Davila Anesthesia problems Neg Hx Broken bones Neg Hx Hip fracture Neg Hx Relation Name Status Comments Daughter Alive Father Fred Mother Reina Mother's Sister Sister Kathleen Davila Social History Tobacco Use Types Packs/Day Years [...] on file Legal Sex Female 7:18 PM SAS PROGRAMMER ANALYST Gender Identity Female 12/06/2021 7:20 AM CDT Sexual Orientation Straight 12/06/2021 7: 20 AM CDT 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 on file Not on file Obstetrics History Para Term AB IAB SAB Ectopic Multiple Livin g Live Births 2 1 1 1 1 1 1 Date Outcome GA Total Labor Labor/2nd/3rd Weight Sex Type Anes PTL Louise A1 A5 Name Clin 1980 Term 3.09 kg (6 lb 13 oz) F Vag-S pont Living Complications:None 1981 SAB Demise Last Filed Vital Signs Vital Sign Reading Time Taken Comments Blood Pressure 114/72 01/30/2024 8:14 AM CDT Pulse 66 01/30/2024 8:14 AM CDT Temperature 36.8 C (98.3 F) 09/24/2023 11:26 AM CDT Respiratory Rate 16 09/24/2023 11:26 AM CDT Oxygen Saturation 99% 09/24/2023 11:26 AM CDT Inhaled Oxygen Concentration - - Weight 51.4 kg (113 lb 4.8 oz) 04/28/2024 11:30 AM SAS PROGRAMMER ANALYST Height 156.2 cm (5' 1.5 ) 04/28/2024 11:30 AM CS T Body Mass Index 21.06 04/28/2024 11:30 AM SAS PROGRAMMER ANALYST Plan of Treatment Health Maintenance Due Date Last Done Comments Depression Screening 1960 Hepatitis C Screening 1960 DTaP/Tdap/Td Vaccine (1 - Tdap) 1969 Hepatitis B Screening 1976 Zoster Vaccine (1 of 2) 2008 Pneumococcal vaccine 65+ (2 of 2 - PCV) 04/27/2013 04/27/2012 Cervical Cancer Screening 07/15/2013 07/15/2012 Colon Cancer Screening-Colonoscopy 06/09/2019 06/09/2009 Fall Risk Assessment 10/05/2021 10/05/2020 Covid-19 Vaccine (2 5 season) 2024 04/26/2022, 01/17/2022, 03/21/2021, Additional history exists Breast Cancer Screening-Mammogram 12/22/2024 12/23/2023, 11/05/2022, 10/18/2021, Additional history exists Well Visit 65+ 01/29/2025 01/30/2024, 10/09, 10/18/2021, Additional history exists Influenza Vaccine (Season Ended) 2025 04/26/2022, 03/28/2020, 03/27/2018, Additional history exists Osteoporosis Screening-Bone Density Scan 10/28/2025 10/29/2023, 10/23/2021, 01/12/2020 Colon Cancer Screening-CT Colonography Discontinued 06/09/2009 Colon Cancer Screening-DNA Stool Discontinued 06/09/19 10 Colon Cancer Screening-FIT Discontinued 06/09/2009 Colon Cancer Screening-Sigmoidoscopy Discontinued 06/09/2009 Medical Devices Implanted Type Area Pension Administrator Device Identifier Shelf Expiration Date Model / Serial / Lot [employer] [id number] Ventralight St Sepra 6x4in Monofilament Absorbable Low Profile - [id number] Implanted:Qty: 1 on 11/27/2017 by Rosalino Young MD PhD at [facility] Right: Groin [employer] 09/04/2019 [id number] / / Procedures Procedure Name Priority Date/Time Associated Diagnosis Comments SCREENING MAMMOGRAM BILATERAL W MARIO Schedule Routine, Read Routine (OP Routine) 12/23/2023 10:54 AM CDT Screening mammogram for breast cancer DEXA TBS AXIAL SKELETON BONE DENSITY 1 OR MORE SITES Schedule Routine, Read Routine (OP Routine) 10/29/2023 3:33 PM CDT Osteoporosis, post-menopausal HM PAP SMEAR WITH HPV Routine 07/15/2012 HM [...] age 40, based on guidelines of the [place] [employer] (ACR Practice Parameter for the Performance of Screening and Diagnostic Mammography) and [place] [employer]. For women [...] Bone mineral density was performed on a [employer] Discovery Densitometer. Based on machine cross-calibration and [...] by the International Society of Clinical Densitometry. [id number] Rubia Dunbar MD G DXA PROCEDURES Final Resu lt * PAP SMEAR WITH HPV (07/15/2012) Pap smear Normal Historical Provider HEALTH MAINTENANCE Final Result * COLONOSCOPY (06/09/2009) Colonoscopy Normal us Historical Provider MD HEALTH MAINTENANCE Final Result from Last 3 Months or Most Recently Relevant to Health Maintenance Insurance AETNA MEDICARE [facility] H[facility]/PPO Address: [address] [address] [place] [address] [facility] AETNA MEDICARE Care Teams Electrical Instrument Repairer Relationship Specialty Start Date End Date Dayana Slade PA PCP - General Physician Lactation Specialist 12/22/19 Rosalinda Goyal MD [address] [place] [address] Neurologist Neurology 05/28/23 Juan C Kamara MD [address] [facility] [address] [place] [address] Referring Physician Neurology 05/28/23 Jolene Zhang, JUNIOR LINUX SYSTEMS ADMINISTRATOR [address] DEPT OTOLARYNGOLOGY, [facility] [address] [place] [address] Nurse Practitioner Otolaryngology 05/28/23 Sara Pradhan MD [address] [place], [place] [id number] Consulting Physician Endocrinology Diabetes & Metabolism 05/28/23
--- OUTSIDE RECORDS SUMMARY | 2024-10-15 08:13 | XMS_ITS ---
Author Organization [facility] ([address]) Address [address] [place] [address] Care Team Providers Care Cuff Stitcher Name Role Phone Dayana Slade Primary Care Provider Unavailab Yunior Monet Unavailable [phone] Allergies Allergen (clinical drug ingredient) Drug/Non Drug [...] Sulfa Drugs (uncoded) Allergies, rash Allergy Active REASON FOR VISIT Concern for dysphagia and tongue swelling occurring an hour after starting Fluconazole. Seen at ED without swelling on PE. Has since stopped Fluconazole but has persistent dysphagia only in the setting of swallowing pills Medications Medication SIG (Take, Route, Frequency, Duration) Notes Start Date End Date Status metFORMIN HCl 500 MG 1 tablet with a marcia l Orally Once a day Active Synthroid 25 MCG 1 tablet in the morn ing on an empty stomach Orally Once a day Active Ezetimibe 10 MG 1 tablet Orally Once a day Active hydroCHLOROthiazide 12.5 MG 1 capsule in the morning Orally Once a day Active Vitamin D3 Active Methyl B-12 1000 MCG as directed Orally Active Docusate Sodium 100 MG 1 capsule as need ed Orally Once a day Active Calcium Carbonate 600 MG 1 tablet with f ood Orally Twice a day Active Estradiol Active Gabapentin 100 MG 1 capsule Orally Onc e a day Active Probiotic 250 MG as directed Orally Active Fiber 500 MG as directed Orally Active MiraLax 17 GM/SCOOP 1 scoop mixed with 8 ounces of fluid Orally Once a day Active Vitamin C 125 MG as directed Orally Active Social History Tobacco Use: Social History Observation Description Date Details (start date - stop date) Never Smoker NA - NA Tobacco Control (Standard) Question Answer Notes Tobacco use: Nonsmoker Problems Problem Type SNOMED Code ICD Code Onset Dates Problem Status W/U Status Risk Notes Problem Dysphagia, unspecified (R13.10) Active confirmed Vital Signs Blood pressure systolic 150 mm Hg 12/01/19 Blood pressure diastolic 82 mm Hg 024 Height 62 in 12/01/2023 Weight 114.6 lbs 12/01/2023 BMI 20.96 kg/m2 12/01/2023 Oximetry 99 % 12/01/2023 Encounters Encounter Location Date Provider Diagnosis [facility] [address] [place] [address] [place] [id number] 12/01/2023 Yunior Trammell Dysphagia, unspecified R13.10 Assessments Encounter Date Diagnosis (ICD Code) Assessment [...] disorder. Set to establish with GI at [facility] this week. Advised to keep journal if any other systemic symptoms occur 12/01/2023 Other Plan Of Treatment Treatment Notes Assessment Notes Dysphagia, unspecified Onset of dysphagi a and tongue swelling approx 1 hour after [...] disorder. Set to establish with GI at [facility] this week. Advised to keep journal if any other systemic symptoms occur Next Appt Details Follow Up: 4 Weeks, Reason: Evaluation and Management Procedure Notes * Category Sub-Category Detail Notes Time (Provider Encounter) Time Attestation This new patient encounter took more than:: more than 60 minutes (37618) Tasks performed during this encounter include:: taking a history, reviewing the patient's review of systems, performing the physical examnation, reviewing laboratory results, reviewing radiology imaging, reviewing outside medical records, counseling the patient on their diagnoses and chronic management, documenting in the EHR, This time calculation excludes any time associated with the separately identifiable medical procedures performed/described within this note (e.g. spirometry/flow volume loop, injections, skin testing, etc...) Progress Notes * Tika CROCKERCelesteB: 9 (62 yo F)Acc No.[id number]:12/01/2023 Progress Notes Patient: Inga BURROWS Provider: Ruth Trammell PA-C :1960 A ge:62 Y S ex:Female Date:12/01/2023 Address:[address] [place] [address] Pcp:Dayana Slade Subjective: * Chief Complaints: * C oncern for dysphagia and tongue swelling occurring an hour after starting Fluconazole. Seen at ED without swelling on PE. Has since stopped Fluconazole but has persistent dysphagia only in the setting of swallowing pills * HPI: * Introduction: I had the pleasure of seeing Spike Crocker, a 62 y/o female presenting for drug allergy evaluation and management. She is alone for today's visit. She reports shehad oral surgery on September 03, 2023 and was started on amoxicillin 500 mg t.i.d. for 7 days, prior to that patient was on amoxicillin 875 b.i.d. for 7 days that was prescribed on August 11, and August 25 she was given Augmentin b.i.d. for 7 days, and then on August 18 she was given azithromycin for 5 days, and on August 21 she was given clindamycin 300 mg every 6 hours for 7 days. She reports given the ongoing infection, she had to have a bone graft. Patient was then given Diflucan on September 12, 2023 due to a yeast infection from abx use. Around an hour later, she felt feelings of dysphagia and tongue swelling. She went the ED and was given IV Benadryl and steroids, sent home on a Medrol Dosepak. At the time, no swelling was noted on PE. She returned to the ED the next day due to persistent symptoms, and they gave her more IV steroids and Benadryl and advised her to take oral Benadryl 1-2 tablets every 3 hours. During these multiple ED visits, [address] CT's of the neck were performed without signs of swelling. She stopped taking Diflucan after that first dose. Since then. this has been occurring most days, only in the setting of swallowing pills. This will resolve typically within an hour. To note, she does have an extensive with reflux, and stomach ulcers. Set to have establish with GI later this week.She denies a history of physician-diagnosed allergic rhinitis, recurrent sinusitis or otitis media, recurrent pneumonia, asthma/RAD, eczema, food allergies, urticaria/angioedema, contact dermatitis, latex allergy, eosinophilic esophagitis or stinging insect hypersensitivity. She has never undergone allergy skin testing or received allergy immunotherapy. Today, she reports no fevers, chills, night sweats or other constitutional symptoms. * Infections: Vaccination History H ave you ever had a flu shot? Y es H ave you ever had a pneumococcal vaccine (CNU-Tkymhrh-Swouyrfql)? Y es T ype? P neumovax D ate of last Pneumovax? 1 06/27/2011 H ave you ever had a tetanus vaccine (DIlo-Xblp-Uv)? Y es D ate of last tetanus vaccine? 0 10/06/1998 D id it contain pertussis as well? Y es Ear Infections D o you have frequent ear infections? Y es H ow many episodes in your entire life? 8 H ow many episodes over the past 12 months??1 D id you ever have ear tubes placed to help alleviate recurrent ear infections? Y es D id you have exposure to passive cigarette smoke in infancy? N o H ave you been seen by an director of program management or wildlife biology internship to evaluate your immune system function for recurrent ear infections? N o Sinusitis (Sinus infections) D o you have frequent episodes of sinusitis??No Sinus Symptoms and Surgery D o you have chronic or recurrent sinus symptoms? N o D o you have sinus pain? N o D o you have a loss of sense of taste? N o H ave you used any of the following treatments for your sinuses? o ral antihistamines,oral decongestants W hich provided benefit? o ral antihistamines,oral decongestants H ave you ever had a sinus CT or X-Ray? N o H ave your ever undergone sinus surgery? N o Bronchitis History D o you get frequent bronchitis? N o Pneumonia History H ave you ever had pneumonia or recurrent pneumonia? Y es H ow many episodes in your entire life? 3 H ow many episodes in the past 12 months? 0 H ave you been treated with antibiotics for pneumonia? Y es W ere antibiotics oral, IV or both? o ral H ave you been hospitalized for treatment??No H ave you been seen by an director of program management or wildlife biology internship to evaluate your immune system function for recurrent pneumonia N o Skin and Other Infections D o you get frequent skin infections (cellulitis)? N o D o you get any other frequent infections??Yes W hat type(s)? p haryngitis (Strep throat) H ave you been seen by an director of program management or wildlife biology internship for other infections? N o * Other Rash and Contact Dermatitis: Other rashes and contact dermatitis H ave you ever had any other form of rash or contact dermatitis? Y es * Medication allergy: Medication Allergy D o you feel you are allergic to any medications? Y es H ow was the medication administered? o ral W hat symptom(s) did the medication cause??pain,nausea I f antibiotic, what type: s ulfa,other antibiotic H ave you been evaluated by an director of program management previously for possible drug allergy? N o * Stinging Insects: Insect Reaction(s) H ave you ever experienced a stinging insect reaction? Y es W hat type of stinging insect? b umble bee W as the reaction: s mall local - where sting occurred,systemic (whole body symptoms) W hat symptoms were experienced? l ocal swelling W ere you taken to the ER for evaluation? N o W hat treatments improved your symptoms? a ntihistamines H ave you been previously prescribed an epinephrine autoinjector? N o H ave you previously seen an director of program management for evaluation of possible stinging insect allergy? N o H ave you been treated for your stinging insect reaction with immunotherapy? N o * Prior Evaluations and Treatments: Last dose of antihistamine: d iphenhydramine (Benadryl) 0 11/22/2023 H as your antihistamine been effective in controlling any of your symptoms? Y es S ymptoms related to what condition(s)? s ymptoms related to another unlisted condition D o you take any other psychiatric medication??No * Food allergy: Food Allergy D o you currently have or have you ever had any proven or suspected food allergies? N o * Eosinophilic GI: Eosinophilic Gastrointestinal Disease D o you have difficulty swallowing foods or have you previously needed to have your esophagus dilated for food impaction or 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? Y es W hat part of the GI tract is involved? I don't know W hat symptoms have been caused by your eosinophilic GI disease? d ifficulty swallowing liquids W hen did symptoms start? p ast 12 months W hat treatments are you taking, if any? a ntihistamines (Zyrtec or Shari) W hich treatments have been beneficial? a ntihistamines W as endoscopy performed to verify the diagnosis? N o H ave you ever been evaluated by an director of program management for possible allergies related to your eosinophilic disease? N o * ROS: A LLERGY: Positive p er the HPI and history, otherwise unremarkable.? S PECIAL SENSES: Positve for n one. e ar infections Y es. C ONSTITUTIONAL: Positive for n one. E NT: Positive p er the HPI and history, otherwise unremarkable.? R ESPIRATORY: Positive p er the HPI and history, otherwise unremakable.? O PHTHALMOLOGY: blurring of vision Y es. P ositive for p er the HPI and history, otherwise unremarkable. E NDOCRINOLOGY: polyuria Y es. c old intolerance Y es. d iabetes Y es. P ositive for n one. C ARDIOLOGY: Positive for n one. G ASTROENTEROLOGY: dysphagia Y es. c onstipation Y es. P ositive for n one. U ROLOGY: frequent urination Y es. P ositive for n one. ? D ERMATOLOGY: dry or sensitive skin Y es. P ositive for p er the HPI and history, otherwise unremakable. N EUROLOGY: headache Y es. t ingling numbness Y es. P ositive for n one. H EMATOLOGY/LYMPH: Positive for n one. M USCULOSKELETAL: joint stiffness Y es. o steoporosis Y es. f racture Y es. P ositive for n one. P SYCHOLOGY: high stress level Y es. a nxiety Y es. P ositive for n one. F EMALE REPRODUCTIVE: sexually active Y es. A ll other review of systems per the HPI and history, otherwise unremarkable. * Medical History: * Surgical History: h ernia repair 11/28/2017myringotomy/ 09/20/2019myringotomy/tympanostomy 10/06/2019myringotomy/tympanostomy 05/05/2023oral surgery tooth extraction, extensive bone graft 4cryosurgery remove precancer cells on nose 10/31/2023 * Hospitalization/Major Diagno stic Procedure: N o Hospitalization History. * Family History: F ather: , Yes. M other: alive, Yes, diagnosed with Cancer, Heart Disease. S iblings: Yes. C hildren: Yes. * Social History: M arital Status What is your marital status? m arried A lcohol Screening Do you ever drink alcoholic beverages? Y es Number of drinks per occasion: 3 Frequency? W eekly S moking Have you ever smoked tobacco: n ever smoked Additional Findings: Tobacco Non-User N on-smoker for methodist reasons Are you a : n ever smoker R ecreational drug use Have you ever used recreational drugs? Y es What kind of drugs? m arijuana D etails on consumption of certain products? Do you regularly consume products with aspartame; Equal or NutraSweet? N o Do you regularly consume products with artificial coloring??No Have you ever noticed worsening of your rash with these food items? N o E xercise What kind(s) of exercise do you perform regularly? w alking,weight training,yoga,cardio,age-appropriate participation in physical activites How often do you perform this exercise? d aily A re any of the following personal care products containing fragrance, dye or preservatives used regularly? Shampoo: Y es Conditioner: Y es Soap: Y es Laundry Detergent: N o Fabric Softener: N o Deodorant: Y es Perfume, cologne, after shave: Y es Air freshners or other scented products: Y es Hair coloring dyes or rinses: Y es O ccupation Are you currenly employed? 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 number of years?45 Do you believe that your current or previous occupation has any bearing on your illness? N o Please describe the effect of your illness on your job l oss of work,loss of income Do you have any pending or planned legal action against your current or former employer which pertains to your medical illness? N o Do you anticipate that your evaluation will be used in any legal action against your current employer or former employer? N o Have you had any job with high exposure to fumes, chemicals, dust or other noxious substances? N o Are you currently a student? N o E nvironmental History Living environment: p rivate home,with relatives Where is the home located? [place] Age of home: 2 5 How long have you lived there? 5 years or more How many people live in the home? 2 H ome description Basement: Y es Any water damage in basement? N o Smokers in the home? N o Smokers outside the home? N o Air Conditioning? Y es Central Air? Y es Forced air heating? Y es Gas or electric? g as Fireplace? Y es Used how often? w inter months only Wood burning stove? N o Do you vacuum the home? Y es Air purification systems? N o Pillow and mattress dust-proof encasings? Y es Do you use a humidifier? N o Do you own any pets? N o Fabric softeners used? Y es Plants in the home? Y es How many? 4 Where are they kept? k itchen,outside,other room in home Is there carpeting in your bedroom? N o Do you have [id number] carpeting? N o What is the age of your mattress (years)? 5 What material(s) are used to manufacture your bedding and pillow? n atural fiber (e.g. cotton) What is the age of your pillow (years)? 2 What material are your bedding items made of? n atural fiber (e.g. cotton) Do you sleep with quilts or blankets or a duvet? Y es What material? s ynthetic,natural fiber (e.g. cotton) T obacco Control (Standard) Tobacco use: N onsmoker * Medications: T akingVitamin C 125 MG Tablet Chewable as directed Orally Probiotic 250 MG Capsule as directed Orally Fiber 500 MG Capsule as directed Orally MiraLax 17 GM/SCOOP Powder 1 scoop mixed with 8 ounces of fluid Orally Once a day Methyl B-12 1000 MCG Lozenge as directed Orally Docusate Sodium 100 MG Capsule 1 capsule as needed Orally Once a day Calcium Carbonate 600 MG Tablet 1 tablet with food Orally Twice a day Estradiol Gabapentin 100 MG Capsule 1 capsule Orally Once a day Ezetimibe 10 MG Tablet 1 tablet Orally Once a day hydroCHLOROthiazide 12.5 MG Capsule 1 capsule in the morning Orally Once a day Vitamin D3 metFORMIN HCl 500 MG Tablet 1 tablet with a meal Orally Once a day Synthroid 25 MCG Tablet 1 tablet in the morning on an empty stomach Orally Once a day Medication List reviewed and reconciled with the patientTaking Vitamin C 125 MG Tablet Chewable as directed Orally Taking Probiotic 250 MG Capsule as directed Orally Taking Fiber 500 MG Capsule as directed Orally Taking MiraLax 17 GM/SCOOP Powder 1 scoop mixed with 8 ounces of fluid Orally Once a day Taking Methyl B-12 1000 MCG Lozenge as directed Orally Taking Docusate Sodium 100 MG Capsule 1 capsule as needed Orally Once a day Taking Calcium Carbonate 600 MG Tablet 1 tablet with food Orally Twice a day Taking Estradiol Taking Gabapentin 100 MG Capsule 1 capsule Orally Once a day Taking Ezetimibe 10 MG Tablet 1 tablet Orally Once a day Taking hydroCHLOROthiazide 12.5 MG Capsule 1 capsule in the morning Orally Once a day Taking Vitamin D3 Taking metFORMIN HCl 500 MG Tablet 1 tablet with a meal Orally Once a day Taking Synthroid 25 MCG Tablet 1 tablet in the morning on an empty stomach Orally Once a day Medication List reviewed and reconciled with the patient * Allergies: N itrofurantoin mono/mac: (swallowing, nausea)Sulfa Drugs: Allergies, rashCiprofoxacin: intoleranceDiflucan: swallowingbee sting: hives, chills, goosebumpsLatex: rash, irritationno[Allergies Verified] Objective: * Vitals: B P:150/82mm Hg, HR:89/min, Pulse Oximetry:99%, Ht: 62 in, Wt: 114.6 lbs, BMI:20.96Index. * Examination: G eneral examination: General appearance: p leasant, well-developed, well-nourished. HEENT: p upils equal, round, and reactive to light and accommodation, conjunctiva are normal bilaterally, no tenderness to palpation of the sinuses, TM's without evidence of acute infection, turbinates 2+ swollen and pale inferiorly bilaterally, clear rhinorrhea is present, no polyps noted, no septal perforation, posterior oropharynx is normal, no erythema on pharyngeal wall, no exudates, no tongue swelling, and uvula is midline. Oral cavity: n ormal, no lesions. Neck, thyroid : s upple, non-tender, no anterior cervical lymphadenopathy. Breasts : n ot performed. Heart: R RR, S1-S2, no murmurs, no rubs, no gallops. Lungs: c lear to auscultation and percussion in all lung ohara, no wheezes or crackles. Abdomen: s oft, NT/ND, normal active bowel sounds. Neurologic exam: u nremarkable. Skin: n ormal, no rash, dermatographism, urticaria, angioedema. Peripheral pulses: n ormal (2+) bilaterally. Back: n ormal. Extremities: n ormal ROM, no clubbing, no cyanosis, no edema. Genitalia: n ot performed. Assessment: * Assessment: 1. D ysphagia, unspecified - R13.10 (Primary) Plan: * Treatment: * Procedures: T lobo (Provider Encounter): Time Attestation T his new patient encounter took more than:?more than 60 minutes (17190) T asks performed during this encounter include: t aking a history, reviewing the patient's review of systems, performing the physical examnation, reviewing laboratory results, reviewing radiology imaging, reviewing outside medical records, counseling the patient on their diagnoses and chronic management, documenting in the EHR, This time calculation excludes any time associated with the separately identifiable medical procedures performed/described within this note (e.g. spirometry/flow volume loop, injections, skin testing, etc...) * Procedure Codes: G 8427 DOC MEDS VERIFIED W/PT OR [id number] Kendrick Trammell - Incident-to * Preventive Medicine: Counseling: M edication instruction: W atch for side effects of prescribed medications, Nasal steroid/antihistamine instruction: avoid septum. E ducation: G ENERAL EDUCATION: Our staff spent an additional 30 minutes in direct contact with the patient educating them on their current diagnoses and proper treatment and prevention of symptoms and the proper use of medications. P atient education material sent to portal? Y es B P Management: FIRST HYPERTENSIVE BP READING FOLLOW-UP PLAN: F ollow-up 1 month * Follow Up: 4 Weeks (Reason: Evaluation and Management) * Billing Information: * Visit Code: 47225 Office Visit, New Pt., Level 5. Modifiers: 25 * Procedure Codes: G8427 DOC MEDS VERIFIED W/[place]. [address] Kendrick Trammell - Incident-to. * Sign off status: Completed true * Provider: Ruth Trammell PA-C Date: 12/01/2023 Generated for Beau pagan/Adelaida/Erick on: 0 10/15/2024 08:13 AM CDT History and Physical Notes * HPI (History of Present Illness) Category Sub-Category Detail Notes Category Not es *Introduction I had the pleasure o f seeing Inga Crocker, a 62 y/o female presenting for drug allergy evaluation and management. She is alone for today's visit. She reports she had oral surgery on September 03, 2023 and was started on amoxicillin 500 mg t.i.d. for 7 days, prior to that patient was on amoxicillin 875 b.i.d. for 7 days that was prescribed on August 11, and August 25 she was given Augmentin b.i.d. for 7 days, and then on August 18 she was given azithromycin for 5 days, and on August 21 she was given clindamycin 300 mg every 6 hours for 7 days. She reports given the ongoing infection, she had to have a bone graft. Patient was then given Diflucan on September 12, 2023 due to a yeast infection from abx use. Around an hour later, she felt feelings of dysphagia and tongue swelling. She went the ED and was given IV Benadryl and steroids, sent home on a Medrol Dosepak. At the time, no swelling was noted on PE. She returned to the ED the next day due to persistent symptoms, and they gave her more IV steroids and Benadryl and advised her to take oral Benadryl 1-2 tablets every 3 hours. During these multiple ED visits, [address] CT's of the neck were performed without signs of swelling. She stopped taking Diflucan after that first dose. Since then. this has been occurring most days, only in the setting of swallowing pills. This will resolve typically within an hour. To note, she does have an extensive with reflux, and stomach ulcers. Set to have establish with GI later this week. She denies a history of physician-diagnosed allergic rhinitis, recurrent sinusitis or otitis media, recurrent pneumonia, asthma/RAD, eczema, food allergies, urticaria/angioedema, contact dermatitis, latex allergy, eosinophilic esophagitis or stinging insect hypersensitivity. She has never undergone allergy skin testing or received allergy immunotherapy. Today, she reports no fevers, chills, night sweats or other constitutional symptoms *Infections Vaccination History Have you nunu r had a flu shot?: Yes Have you ever had a pneumococcal vaccine (SYY-Zczoaep-Dcdfttbns)?: Yes Type?: Pneumovax Date of last Pneumovax?: 04/27/2012 Have you ever had a tetanus vaccine (DTa p-Tdap-Td)?: Yes Date of last tetanus vaccine?: 10/06/1998 Did it contain pertussis as well?: Yes Ear Infections Do you have frequent ear infecti ons?: Yes How many episodes in your entire life?: 8 How many episodes over the past 12 months?: 1 Did you ever have ear tubes placed to help alleviate recurrent ear infections?: Yes Did you have exposure to passive cigarette smoke in infancy?: No Have you been seen by an director of program management or wildlife biology internship to evaluate your immune system function for recurrent ear infections?: No Sinusitis (Sinus infections) Do you have frequen t episodes of sinusitis?: No Sinus Symptoms and Surgery Do you have chronic o r recurrent sinus symptoms?: No Do you have sinus pain?: No Do you have a loss of sense of taste?: N o Have you used any of the fol lowing treatments for your sinuses?: oral antihistamines,oral decongestants Which provided benefit?: oral antihistam mike,oral decongestants Have you ever had a sinus CT or X-Ray?: No Have your ever undergone sinus surgery?: No Bronchitis History Do you get frequent bronchiti s?: No Pneumonia History Have you ever had pneumonia or recurrent pneumonia?: Yes How many episodes in your entire life?: 3 How many episodes in the past 12 months?: 0 Have you been treated with antibiotics for pneumonia? : Yes Were antibiotics oral, IV or both?: oral Have you been hospitalized for treatment?: No Have you been seen by an director of program management or wildlife biology internship to evaluate your immune system function for recurrent pneumonia: No Skin and Other Infections Do you get frequent sk in infections (cellulitis)?: No Do you get any other frequent infections ?: Yes What type(s)?: pharyngitis (Strep throat) Have you been seen by an director of program management or wildlife biology internship for other infections?: No *Other Rash and Contact Dermatitis Other rashes and contact dermatitis Have you ever had any other form of rash or contact dermatitis?: Yes *Medication allergy Medication Allergy Do you fe el you are allergic to any medications? : Yes How was the medication administered?: oral What symptom(s) did the medication cause?: pain,nausea If antibiotic, what type:: sulfa,other a ntibiotic Have you been evaluated by a n director of program management previously for possible drug allergy?: No *Stinging Insects Insect Reaction(s) Have you ev er experienced a stinging insect reaction? : Yes What type of stinging insect?: bumble bee Was the reaction:: small local - where sting occurred,systemic (whole body symptoms) What symptoms were experienced?: local swelling Were you taken to the ER for evaluation?: No What treatments improved your symptoms?: antihistamines Have you been previously prescribed an epinephrine autoinjector?: No Have you previously seen an director of program management for evaluation of possible stinging insect allergy?: No Have you been treated for your stinging insect reaction with immunotherapy?: No *Prior Evaluations and Treatments Last dose of antihistamine: diphenhydramine (Benadryl) : 11/22/2023 Has your antihistamine been effective in controlling any of your symptoms?: Yes Symptoms related to what condition(s)?: symptoms related to another unlisted condition Do you take any other psychiatric medica tion?: No *Food allergy Food Allergy Do you currently have or have you ever had any proven or suspected food allergies?: No *Eosinophilic GI Eosinophilic Gastroi ntestinal Disease Do you have difficulty swallowing foods or have you previously needed to have your esophagus dilated for food impaction or 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?: Yes What part of the GI tract is involved?: I don't know What symptoms have been caused by your eosinophilic GI disease?: difficulty swallowing liquids When did symptoms start?: past 12 months What treatments are you taking, if any?: antihistamines (Zyrtec or Shari) Which treatments have been beneficial?: antihistamines Was endoscopy performed to verify the diagnosis?: No Have you ever been evaluated by an director of program management for possible allergies related to your eosinophilic disease?: No Examination Category Sub-Category Detail Notes Category Not es General examination HEENT: pupils equal , round, and reactive to light and accommodation, conjunctiva are normal bilaterally, no tenderness to palpation of the sinuses, TM's without evidence of acute infection, turbinates 2+ swollen and pale inferiorly bilaterally, clear rhinorrhea is present, no polyps noted, no septal perforation, posterior oropharynx is normal, no erythema on pharyngeal wall, no exudates, no tongue swelling, and uvula is midline Neck, thyroid : supple, non-tender, no anterior cervical lymphadenopathy Heart: RRR, S1-S2, no murmu rs, no rubs, no gallops Lungs: clear to auscultatio n and percussion in all lung ohara, no wheezes or crackles Abdomen: soft, NT/ND, normal active bowel sounds Extremities: normal ROM, no clubb ing, no cyanosis, no edema General appearance: pleasant, well-devel oped, well-nourished Skin: normal, no rash, drois matographism, urticaria, angioedema Neurologic exam: unremarkable Oral cavity: normal, no lesions Breasts : not performed Peripheral pulses: normal (2+) bilatera lly Back: normal Genitalia: not performed
--- OUTSIDE RECORDS SUMMARY | 2024-10-15 08:13 | XMS_ITS ---
Author Organization Formerly [facility] ([address]) Address [address] [place] [address] Care Team Providers Care Environmental Services Supervisor Name Role Phone Dayana Slade Primary Care Provider UnavailYunior Issa Unavailable [phone] Allergies Allergen (clinical drug ingredient) Drug/Non Drug [...] dysphagia only in the setting of swallowing pills, Reported hives and chills after a bee sting as a child. Seen by PCP and treated with Benadryl with resolution. No interval stings. No AIE on hand, Reported rash after using latex band at hospital. No other symptoms. That said, she reports blowing up latex balloons without issue Medications Medication SIG (Take, Route, Frequency, Duration) Notes Start Date End Date Status EPINEPHrine 0.3 MG/0.3ML as directed Injection as needed for 30 days 03/08/2024 Active Fiber 500 MG as directed Orally Active Synthroid 25 MCG 1 tablet in the morning on an empty stomach Orally Once a day Active Probiotic 250 MG as directed Orally Active Vitamin C 125 MG as directed Orally Not-Taking metFORMIN HCl 500 MG 1 tablet with a marcia l Orally Once a day Active Gabapentin 100 MG 1 capsule Orally Once a day Active Vitamin D3 Active hydroCHLOROthiazide 12.5 MG 1 capsule in the morning Orally Once a day Active Ezetimibe 10 MG 1 tablet Orally Once a day Active Methyl B-12 1000 MCG as directed Orally Active MiraLax 17 GM/SCOOP 1 scoop mixed with 8 ounces of fluid Orally Once a day Active Estradiol Active Calcium Carbonate 600 MG 1 tablet with f ood Orally Twice a day Active Docusate Sodium 100 MG 1 capsule as need ed Orally Once a day Not-Taking Social History Tobacco Use: Social History Observation Description Date Details (start date - stop date) Never Smoker NA - NA Tobacco Control (Standard) Question Answer Notes Tobacco use: Nonsmoker Problems Problem Type SNOMED Code ICD Code Onset Dates Problem Status W/U Status Risk Notes Problem 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 confirmed Problem 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) Active confirmed Vital Signs Blood pressure systolic 119 mm Hg 03/08/20 24 Blood pressure diastolic 72 mm Hg 024 Height 62 in 03/08/2024 Weight 113.6 lbs 03/08/2024 BMI 20.78 kg/m2 03/08/2024 Oximetry 100 % 03/08/2024 Encounters Encounter Location Date Provider Diagnosis [facility] [address] [place] [phone] 03/08/2024 Yunior Trammell Dysphagia, unspecified R13.10 ; Bee allergy status Z91.030 and Latex allergy status Z91.040 Assessments Encounter Date Diagnosis (ICD Code) Assessment Notes Treatment Notes Treatment Clinical Notes Section Notes 03/08/2024 Dysphagia, unspecified (ICD-10 - R13.10) Onset [...] She has since establsihed with GI at [place] showing NERD with concern for Sjogren's though [...] No further work-up needed at this point 03/08/2024 Other Plan Of Treatment Medication Medication Name Sig Start Date Stop Date Notes EPINEPHrine 0.3 MG/0.3ML as directed Inj ection as needed for 30 days 03/08/2024 Treatment Notes Assessment Notes Dysphagia, unspecified Onset [...] She has since establsihed with GI at [place] showing NERD with concern for Sjogren's though work-up with PCP was negative. No current reflux medications and continues to feel a globulus sensation. Advised to keep journal if any other systemic symptoms occur. Keep follow-up with GI to discuss reflux medication regimen Bee allergy status Reported hives and c hills after a bee sting as a child. Seen by PCP and treated with Benadryl with resolution. No interval stings. No AIE on hand. She denies other symptoms at the time though history is unclear. No interval stings. History is concerning for IgE-mediated hypersensitivity reaction. AIE education given. Keep AIE on hand at all times. Advised stinging insect testing which she is considering Latex allergy status Reported rash after using latex band at hospital. No other symptoms. That said, she reports blowing up latex balloons without issue. History is not c/w IgE mediated response. No further work-up needed at this point Next Appt Details Follow Up: prn, Reason: Eval uation and Management Progress Notes * Tika CROCKERaDOB: (63 yo F)Acc No.[id number]:03/08/2024 Progress Notes Patient: Inga BURROWS Provider: Ruth Trammell PA-C :1960 A ge:63 Y S ex:Female Date:03/08/2024 Address:[address] [place] [address] Pcp:Dayana Slade Subjective: * Chief Complaints: * C oncern for dysphagia and tongue swelling occurring an hour after starting Fluconazole. Seen at ED without swelling on PE. Has since stopped Fluconazole but has persistent dysphagia only in the setting of swallowing pillsReported hives and chills after a bee sting as a child. Seen by PCP and treated with Benadryl with resolution. No interval stings. No AIE on handReported rash after using latex band at hospital. No other symptoms. That said, she reports blowing up latex balloons without issue * HPI: * Introduction: I had the pleasure of seeing Spike Crocker, a 62 y/o female returning for interval e valuation and management. She is alone for today's visit. She reports she h ad oral surgery on September 03, 2023 and [...] an extensive with reflux, and stomach ulcers. She has since been seen by GI with diagnosis of NERD. She is now set to f/u with rheumatology for possible Sjogren's Syndome. That said f/u labs with PCP with neative on Sjogren's work-up. She does report a dry mouth. No current reflux medicaitons. She also reportes hives and chills after a bee sting as a child. Seen by PCP and treated with Benadryl with resolution. No interval stings. No AIE on hand. Unclear is other symptoms occurred at the time. History is unclear. R eported rash after using latex band at hospital. No other symptoms. That said, she reports blowing up latex balloons without issue. T katarzyna, she reports no fevers, chills, night sweats or other constitutional symptoms. * ROS: A LLERGY: Positive p er [...] of drinks per occasion: 3 Frequency? W micah S tobyking Have you ever smoked tobacco: n ever smoked Additional Findings: Tobacco Non-User N on-smoker for orthodox reasons Are you a : n ever [...] your bedroom? N o Do you have [id number] carpeting? N o What is the age [...] Tobacco use: N onsmoker * Medications: T akingProbiotic 250 MG Capsule as directed Orally Fiber 500 MG Capsule as directed Orally MiraLax 17 GM/SCOOP Powder 1 scoop mixed with 8 ounces of fluid Orally Once a day Methyl B-12 1000 MCG Lozenge as directed Orally Calcium Carbonate 600 MG Tablet 1 tablet [...] an empty stomach Orally Once a day Taking Probiotic 250 MG Capsule as directed Orally Taking Fiber 500 MG Capsule as directed Orally Taking MiraLax 17 GM/SCOOP Powder 1 scoop mixed with 8 ounces of fluid Orally Once a day Taking Methyl B-12 1000 MCG Lozenge as directed Orally Taking Calcium Carbonate 600 MG Tablet 1 [...] an empty stomach Orally Once a day Not-Taking/PRNVitamin C 125 MG Tablet Chewable as directed Orally Docusate Sodium 100 MG Capsule 1 capsule as needed Orally Once a day Medication List reviewed and reconciled with the patientNot-Taking/PRN Vitamin C 125 MG Tablet Chewable as directed Orally Not-Taking/PRN Docusate Sodium 100 MG Capsule 1 capsule as needed Orally Once a day Medication List reviewed and reconciled with the patient * Allergies: N itrofurantoin mono/mac: (swallowing, nausea)Sulfa Drugs: Allergies, rashCiprofoxacin: intoleranceDiflucan: swallowingbee sting: hives, chills, goosebumpsLatex: rash, irritationno[Allergies Verified] Objective: * Vitals: B P:119/72mm Hg, HR:59/min, Pulse Oximetry:100%, Ht: 62 in, Wt: 113.6 lbs, BMI:20.78Index. * Examination: G eneral examination: General appearance: [...] 1. D ysphagia, unspecified - R13.10 (Primary) 2 . B ee allergy status - Z91.030 3 . L atex allergy status - Z91.040 Plan: * Treatment: 2. B ee allergy status Start EPINEPHrine Solution Auto-injector, 0.3 MG/0.3ML, as directed, Injection, as needed, 30 days, 1, Refills 0. Notes: Reported hives and chills after a bee [...] stinging insect testing which she is considering 3. L atex allergy status Notes: Reported rash after using latex band at hospital. No other symptoms. That said, she reports blowing up latex balloons without issue. History is not c/w IgE mediated response. No further work-up needed at this point * Procedure Codes: G 8427 DOC MEDS VERIFIED W/PT OR [id number] Kendrick Jp - Incident-[id number] SELF-MGMT EDUC & TRAIN, 1 PT * Preventive Medicine: Counseling: M edication instruction: [...] atient education material sent to portal? Y luz elena Goetz P Management: FIRST HYPERTENSIVE BP READING FOLLOW-UP PLAN: F ollow-up 1 month * Follow Up: p rn (Reason: Evaluation and Management) * Billing Information: * Visit Code: 27532 Office Visit, Est Pt., Level 4. Modifiers: 25 * Procedure Codes: G8427 DOC MEDS VERIFIED W/[place]. [address] Kendrick Trammell - Incident-to. [id number] SELF-MGMT EDUC & TRAIN, 1 PT. * Sign off status: Completed true * Provider: Ruth Trammell PA-C Date: 0 03/08/2024 Generated for Beau pagan/Adelaida/Dmitriyitting on: 0 10/15/2024 08:13 AM CDT History and Physical Notes * HPI (History of Present Illness) Category Sub-Category Detail Notes Category Not es *Introduction I had the pleasure o f seeing Inga Crocker, a 62 y/o female returning for interval evaluation and management. She is alone for [...] an extensive with reflux, and stomach ulcers. She has since been seen by GI with diagnosis of NERD. She is now set to f/u with rheumatology for possible Sjogren's Syndome. That said f/u labs with PCP with neative on Sjogren's work-up. She does report a dry mouth. No current reflux medicaitons. She also reportes hives and chills after a bee sting as a child. Seen by PCP and treated with Benadryl with resolution. No interval stings. No AIE on hand. Unclear is other symptoms occurred at the time. History is unclear. Reported rash after using latex band at hospital. No other symptoms. That said, she reports blowing up latex balloons without issue. Today, she reports no fevers, chills, night sweats or other constitutional symptoms Examination Category Sub-Category Detail Notes Category Not [...] well-devel oped, well-nourished Skin: normal, no rash, doris matographism, urticaria, angioedema Neurologic exam: unremarkable Oral cavity: normal, no lesions Breasts : not performed Peripheral pulses: normal (2+) bilatera lly Back: normal Genitalia: not performed
--- OUTSIDE RECORDS SUMMARY | 2024-10-15 08:13 | XMS_ITS | Clinical Summary ---
[facility] Address [address] [place] [address] Care Team Providers Care Engineering Document Control Clerk Name Role Phone Unavailable Primary Care Provider Unavailabl e Allergies Active Allergy Reactions Criticality Noted Date Comments Ciprofloxacin Nausea and Vomiting Medium 08/15/2021 Fluconazole Anaphylaxis,Hives,Ot her (See Comments) High 09/17/2023 Latex Rash Medium 03/26/2017 Nitrofurantoin Diarrhea Low 09/29/2016 Sulfa (Sulfonamide Antibiotics) Rash,Hives High 04/13/2016 Venom-Honey Bee Hives,Other (See Comments) High 02/21/2022 Medications calcium as carbonate (CALTRATE) 1,500 mg (600 mg elemental) Tablet Take 750 mg by mouth daily. Active cholecalciferol 1,250 mcg (50,000 unit) Capsule Take 50,000 Units by mouth. montly Active EPINEPHrine (EPIPEN) 0.3 mg/0.3 mL Auto-Injector Inject 0.3 mg by subcutaneous injection one time only. 4 Active estradioL (ESTRACE) 0.01% (0.1 mg/g) vaginal cream Insert 1 Gram vaginally. 3 Active gabapentin (NEURONTIN) 100 mg capsule Take 1 Capsule by mouth daily. Active hydroCHLOROthia zide 12.5 mg tablet Take 12.5 mg by mouth daily. Active levothyroxine 50 mcg tablet Take 50 mcg by mouth daily. 3 Active mecobalamin, vitamin B12, 1,000 mcg Lozenge 1,000 mcg. Active metFORMIN (GLUCOPHAGE) 500 mg tablet Take 500 mg by mouth 3 times daily. 3 Active Saccharomyces boulardii (FLORASTOR) 250 mg Capsule as directed Orally Active polyethylene glycol (MIRALAX) 17 gram Powder in Packet Take by mouth daily. Active ezetimibe (Zetia) 10 mg tablet Take 10 mg by mouth daily. Active Active Problems Problem Noted Date Diagnosed Date Iron deficiency 04/05/2024 Encounters Date Type Department Care Team Description 10/07/2024 10:00 AM CDT Office Visit [facility] G[facility]enter[facility] [address] [address] [facility] [address] [place] [address] Freda Pink MD Other constipation (Primary Dx); Epigastric pain syndrome; Iron deficiency; Globus sensation 09/24/[address] [facility] [address] [facility] [address] [place] [address] Freda Pink MD 08/25/2024 External Device Data STL ABSTRACTION Provider, Abstract 08/19/2024 2:45 PM CDT Office Visit [facility] Oncology and Hematology [facility] [address] [place] [address] Israel Amaro MD Chronic anemia (Primary Dx) 08/18/2024 Orders Only [facility] Oncology and [facility] [address] [place] [address] Israel Amaro MD 08/14/2024 External Device Data STL ABSTRACTION Provider, Abstract 08/13/2024 External Device Data STL ABSTRACTION Provider, Abstract 08/10/2024 External Device Data STL ABSTRACTION Provider, Abstract 07/29/[address] [facility] [address] [facility] [address] [place] [id number] Freda Pink MD video capsule 07/28/2024 External Device Data STL ABSTRACTION Provider, Abstract 07/27/2024 External Device Data STL ABSTRACTION Provider, Abstract from Last 3 Months Family History Medical History Relation Name Comments No Known Problems Child Brain Cancer Father Breast Cancer Mother Heart Disease Mother No Known Problems Sister Relation Name Status Comments Child Alive Father Mother Alive Sister Alive Social History Tobacco Use Types Packs/Day Years Used Date Smoking Tobacco: Never Smokeless Tobacco: Never Tobacco Cessation:Counseling Given: Not Answered Alcohol Use Standard Drinks/Week Comments Yes 0 (1 standard drink = 0.6 oz pur e alcohol) ocasionally Feeling Safe Answer Date Recorded Are you in a relationship wi th someone who hurts you emotionally and/or physically? No 07/14/2024 Comments Unknown Sex and Gender Information Value Date Recorded Sex Assigned at Not on file Legal Sex Female 2:18 PM CDT Gender Identity Not on file Sexual Orientation Not on file Last Filed Vital Signs Vital Sign Reading Time Taken Comments Blood Pressure 126/65 08/19/2024 2:48 PM CDT Pulse 75 08/19/2024 2:48 PM CDT Temperature 37.1 C (98.7 F) 10/07/2024 9:45 AM CDT Respiratory Rate 18 10/07/2024 9:45 AM CDT Oxygen Saturation 94% 10/07/2024 9:45 AM CDT Inhaled Oxygen Concentration - - Weight 50.9 kg (112 lb 3.2 oz) 10/07/2024 9:45 A M CDT Height 158.5 cm (5' 2.4 ) 10/07/2024 9:45 AM CDT Body Mass Index 20.26 10/07/2024 9:45 AM CDT Plan of Treatment Upcoming Encounters Date Type Department Care Team (Late st Contact Info) Description 02/22/2025 3:30 PM CDT Office Visit [facility] Oncology and Hematology - [place] [address] [facility] [address] [place] [address] Israel Amaro MD [address] [facility] [address] [place] [address] 03/03/2025 1:50 PM CDT Office Visit [facility]astroenter[facility] [address]vana Flannery [address] [facility] [address] [facility] [address] Frdea Pink MD [address] [facility] [address] [place] [phone] Health Maintenance Due Date Last Done Comments DIABETES ANNUAL FOOT EXAM 1976 DIABETES ANNUAL RETINAL EXAM 1976 DIABETES HBA1C Q 6 MONTHS 1976 DIABETES MICROALBUMIN ANNUAL SCREEN 1976 LDL CHOLESTEROL ANNUAL 1976 DTAP/TDAP/TD VACCINES (1 - Tdap) 1977 FIT-DNA Q 3 years 12/14/2003 FIT/FOBT Q 1 year 12/14/2003 Flex Sig/CT Colonography Q 5 years 12/14/2003 ZOSTER VACCINE (1 of 2) 2008 PNEUMOCOCCAL VACCINE 50+ YEA RS (2 of 2 - PCV) 04/27/2013 04/27/2012 INFLUENZA VACCINE (#1) 2024 2, 03/28/2020, 03/27/2018, Additional history exists COVID-19 Vaccine (4 - 2023-2 5 season) 2024 01/17/2022, 08/17/2020, 07/27/2020 BREAST CANCER SCREENING 12/22/2024 12/23/19 24, 12/23/2023, 11/05/2022, Additional history exists OSTEOPOROSIS SCREENING 10/28/2028 4, 10/29/2023, 10/23/2021, Additional history exists RSV VACCINE (60+ or ) (1 - 1-dose 75+ series) 2033 COLORECTAL SCREENING 07/14/2034 07/14/2024, 07/14/2024, 05/19/2019, Additional history exists Colorectal Cancer Screening 07/14/2034 Procedures Procedure Name Priority Date/Time Associated Diagnosis Comments CBC WITH DIFFERENTIAL Routine 08/16/2024 3:38 PM CDT COLONOSCOPY REPORT 07/14/2024 1: 22 PM PLASTIC JIG AND [employer]TURE BUILDER from Last 3 Months or Most Recently Relevant to Health Maintenance Results * CBC WITH DIFFERENTIAL (08/16/2024 3:38 PM CDT) Blood us Israel Amaro MD HEMATOLOGY ORDERABLES Final Res ult * COLONOSCOPY REPORT (07/14/2024 1:22 PM PLASTIC JIG AND [employer]TURE BUILDER) Narrative Procedure Note Freda Pink MD - 07/14/2024 1:22 PM CST [facility] Endoscopy Patient Name: Inga Andre Procedure Date: 07/14/2024 Date of : 1960 Attending MD: Freda Pink MD, Procedure: Colonoscopy Indications: Iron deficiency anemia Patient Profile: Reports EGD done 12/2023 which was normal, last colonoscopy 5 years ago without polyps Providers: Freda Pink MD Referring MD: Israel Amaro Requesting Provider: Dayana Slade Medicines: Monitored Anesthesia Care Complications: No immediate complications. Procedure: Informed consent was obtained for the procedure, including moderate sedation after risks were discussed. Based on the pre-procedure assessment, including review of the patient's medical history, medications, allergies, and review of systems, the patient was deemed to be an appropriate candidate for sedation. A timeout was performed. Continuous ECG monitoring, pulse oximetry, blood pressure monitoring, and direct observation were performed. The Colonoscope was introduced through the anus and advanced to the terminal ileum. The colonoscopy was performed without difficulty. The patient tolerated the procedure well. The quality of the bowel preparation was excellent. The terminal ileum, ileocecal valve, appendiceal orifice, and rectum were photographed. Estimated Blood Loss: Estimated blood loss was minimal. Findings: The perianal and digital rectal examinations were normal. The terminal ileum appeared normal. A few small-mouthed diverticula were found in the sigmoid colon. A 2 mm polyp was found in the rectum. The polyp was sessile. The polyp was removed with a jumbo cold forceps. Resection and retrieval were complete. Internal hemorrhoids were found during retroflexion. The hemorrhoids were medium-sized. Impression: - The examined portion of the ileum was normal. - Diverticulosis in the sigmoid colon. - One 2 mm polyp in the rectum, removed with a jumbo cold forceps. Resected and retrieved. - Internal hemorrhoids. Recommendation: - Discharge patient to home. - Resume previous diet. - Continue present medications. - Await pathology results. - Repeat colonoscopy in 7-10 years for surveillance based on pathology results. - No cause for iron deficiency anemia identified. Patient reports recent negative upper endoscopy. Recommend proceeding with video capsule endoscopy for evaluation of the small bowel to complete GI work-up for iron deficiency. My office should call you to schedule, if you do not hear please let me know. Freda Pink MD 07/14/2024 1:22:47 PM This report has been signed electronically. Number of Addenda: [address]; [place] [address] Freda Pink MD GI PROCEDURE ORDERABLES F inal Result from Last 3 Months or Most Recently Relevant to Health Maintenance Insurance
--- OUTSIDE RECORDS SUMMARY | 2024-10-15 08:14 | XMS_ITS | Data Portability ---
Author Organization [facility] Address [address] [place] [address] Care Team Providers Care Hazardous Waste Technician Name Role Phone DAYANA SLADE Primary Care Provider Unavailab le Assessment Encounter Date Assessment Date Assessment LastModified by Organization Details LastModified Time 09/12/2023 09/12/2023 mammogram and dexa UTD pap smear UTD Colonoscopy 2019, all clear. Not available 09/12/2023 12:13:43 01/13/2024 01/13/2024 Patient will make separate arrangements to schedule a Medicare annual wellness exam Not available 02/07/2024 12:40:25 07/07/2024 07/07/2024 mammogram and dexa UTD pap smear UTD Colonoscopy 2019, all clear. Not available 07/07/2024 15:10:46 08/09/2024 08/09/2024 mammogram and dexa UTD pap smear UTD Colonoscopy 2019, all clear. Not available 08/09/2024 11:09:12 Plan of Treatment Reminders Order Date Submit Date Provider Last Modified By Organization Details Last Modified Time Details Appointments ANY 15 2024 04:00P M KEVIN Yip Not available Not available Not available Lab vitamin D, 25-hydrox y, total, serum 2024 08/2 025 [facility], [address], [place], [address], 08/09/2024 11:16:55 HbA1c (hemoglob in A1c), blood 2024 025 [facility], [address], [place], [address], 08/09/2024 11:16:55 CBC w/ auto diff 2024 025 [facility], [address], [place], [address], 08/09/2024 11:16:55 hepatic function panel, serum 2024 025 [facility], [address], [place], [address], 08/09/2024 11:16:55 BMP, serum or plasma 2024 025 [facility], [address], [place], [address], 08/09/2024 11:16:55 lipid panel, serum 2024 025 [facility], [address], [place], [address], 08/09/2024 11:16:55 vitamin D, 25-hydrox y, total, serum 2024 025 [facility], [address], [place], [address], 08/09/2024 17:07:53 CBC w/ auto diff 2024 025 [facility], [address], [place], [address], 08/09/2024 12:03:45 hepatic function panel, serum 2024 025 [facility], [address], [place], [address], 08/09/2024 17:07:51 BMP, serum or plasma 2024 025 [facility], [address], [place], [address], 08/09/2024 17:07:52 lipid panel, serum 2024 025 [facility], [address], [place], [address], 08/09/2024 17:07:49 iron + TIBC + ferritin, serum 2023 024 [facility], [address], [place], [address], 01/22/2024 14:36:35 CBC w/ auto diff 2023 024 [facility], [address], [place], [address], 01/22/2024 14:36:33 hepatic function panel, serum 2023 024 [facility], [address], [place], [address], 01/22/2024 14:36:32 BMP, serum or plasma 2023 024 [facility], [address], [place], [address], 01/22/2024 14:36:33 lipid panel, serum 2023 024 [facility], [address], [place], [address], 01/22/2024 14:36:31 sjogren antibody panel (ssa, ssb, ro, la), serum 2023 024 [facility], [address], [place], [address], 01/22/2024 14:36:34 OVIDIO (antinucl ear antibodie s) screen, serum 2023 024 [facility], [address], [place], [address], 01/22/2024 14:36:31 lipid panel, serum 2023 024 [facility] [facility], [address], [place], [address], 09/26/2023 16:34:22 vitamin B12 + folate, serum or blood 2023 024 [facility] [employer] [facility], [address], [place], [address], 09/26/2023 16:34:21 CBC w/ auto diff 2023 024 [facility] [employer] [facility], [address], [place], [address], 09/26/2023 16:34:21 CMP, serum or plasma 2023 024 [facility] [employer] [facility], [address], [place], [address], 09/26/2023 16:34:22 vitamin D, 25-hydrox y, total, serum 2023 024 [facility] [employer] [facility], [address], [place], [address], 09/26/2023 16:34:22 iron + TIBC + ferritin, serum 2023 024 [facility] [employer] [facility], [address], [address], [place], [address], 09/26/2023 16:34:21 Referral general surgeon referral 2024 025 [facility] - General Surgery, [address], [address], [place], [address], 08/26/2024 13:16:00 Procedures None recorded. Surgeries None recorded. Imaging CT, abdomen + pelvis, w/ contrast - Authoriza tion approved# [id number] 0, effective 5 - 5, for procedure code 30479 2024 025 [facility], [address], [place], [address], 07/24/2024 08:46:11 US, screening for abdominal aortic aneurysm 2023 024 [facility], [address], [place], [address], 03/19/2024 12:24:26 Medication Orders ezetimibe 10 mg tablet 2023 024 [facility] #[id number], [address] [place] [address], [id number], 07/07/2024 15:02:09 cholecalc iferol (vitamin D3) 1,250 mcg (50,000 unit) capsule 2023 024 [facility] #[id number], [address] [place] [address], [id number], 09/12/2023 12:28:43 fluconazo le 150 mg tablet 2023 024 [facility] #[id number], [address] [place] [address], [id number], 01/13/2024 15:48:14 hydrochlo rothiazid e 12.5 mg tablet 2023 024 [facility] #[id number], [address] [place] [address], [phone], 07/07/2024 15:01:59 Patient TargetsNo targets recorded. Patient Instructions Encounter Date Encounter Id Patient Instructions Last Modified By Organization Details Last Modified Time 02/23/2024 [id number] Medicare Wellnes s Preventive Checklist Not available 02/23/2024 10:05:23 Reason for Referral General Surgeon Referral for History of repair of inguinal hernia Referring Physician: Dayana Slade, Internal Medicine, Encounter Date: 08/09/2024 Results Created Date Observation Date Name Description Value Unit Range Abnormal Flag Note LastModifiedBy Organization Detail LastModifiedTime 09/24/19 24 09/25/2023 LIPID PANEL cholesterol, total 243 mg/dL 100-19 9 above high normal Not Available [facility] ([facility]) [address] [place], [address], 09/25/2023 10:12:26 09/24/19 24 09/25/2023 LIPID PANEL triglyceride s 262 mg/dL 0-149 above high normal Not Available [facility] ([facility]) [address] [place], [address], 09/25/2023 10:12:26 09/24/19 24 09/25/2023 LIPID PANEL HDL cholesterol 75 mg/dL >39 Not Available [facility] ([facility]) [address] [place], [address], 09/25/2023 10:12:26 09/24/19 24 09/25/2023 LIPID PANEL VLDL cholesterol dyan 45 mg/dL 5-40 above high normal Not Available [facility] ([facility]) [address] [place], [address], 09/25/2023 10:12:26 09/24/19 24 09/25/2023 LIPID PANEL LDL chol calc ([facility]) 123 mg/dL 0-99 above high normal Not Available [facility] ([facility]) [address] [place], [address], 09/25/2023 10:12:26 04/17/20 24 09/25/2023 COMP. METAB OLIC PANEL (14) glucose 77 mg/dL 70-99 Not Available [facility] ([facility]) [address] [place], [address], 09/25/2023 10:12:26 09/24/19 24 09/25/2023 COMP. METAB OLIC PANEL (14) BUN 17 mg/dL 8-27 Not Available [facility] ([facility]) [address] [place], [address], 09/25/2023 10:12:26 09/24/19 24 09/25/2023 COMP. METAB OLIC PANEL (14) creatinine 0.82 mg/dL 0.57-1 .00 Not Available [facility] ([facility]) [address] [place], [address], 09/25/2023 10:12:26 09/24/19 24 09/25/2023 COMP. METAB OLIC PANEL (14) eGFR 80 mL/mi n/1.7 3 >59 Not Available [facility] ([facility]) [address] [place], [address], 09/25/2023 10:12:26 09/24/19 24 09/25/2023 COMP. METAB OLIC PANEL (14) BUN/creatini ne ratio 21 12-28 Not Available [facility] ([facility]) [address] [place], [address], 09/25/2023 10:12:26 09/24/19 24 09/25/2023 COMP. METAB OLIC PANEL (14) sodium 138 mmol/ L 134-14 4 Not Available [facility] ([facility]) [address] [place], [address], 09/25/2023 10:12:26 09/24/19 24 09/25/2023 COMP. METAB OLIC PANEL (14) potassium 4.0 mmol/ L 3.5-5. 2 Not Available [facility] ([facility]) [address] [place], [address], 09/25/2023 10:12:26 09/24/19 24 09/25/2023 COMP. METAB OLIC PANEL (14) chloride 98 mmol/ L 96-106 Not Available [facility] ([facility]) [address] [place], [address], 09/25/2023 10:12:26 09/24/19 24 09/25/2023 COMP. METAB OLIC PANEL (14) carbon dioxide, total 26 mmol/ L 20-29 Not Available [facility] ([facility]) [address] [place], [address], 09/25/2023 10:12:26 09/24/19 24 09/25/2023 COMP. METAB OLIC PANEL (14) calcium 10.0 mg/dL 8.7-10 .3 Not Available [facility] ([facility]) [address] [place], [address], 09/25/2023 10:12:26 09/24/19 24 09/25/2023 COMP. METAB OLIC PANEL (14) protein, total 6.8 g/dL 6.0-8. 5 Not Available [facility] ([facility]) [address] [place], [address], 09/25/2023 10:12:26 09/24/19 24 09/25/2023 COMP. METAB OLIC PANEL (14) albumin 4.3 g/dL 3.9-4. 9 Not Available [facility] ([facility]) [address] [place], [address], 09/25/2023 10:12:26 09/24/19 24 09/25/2023 COMP. METAB OLIC PANEL (14) globulin, total 2.5 g/dL 1.5-4. 5 Not Available [facility] ([facility]) [address] [facility] [place], [address], 09/25/2023 10:12:26 09/24/19 24 09/25/2023 COMP. METAB OLIC PANEL (14) A/G ratio 1.7 1.2-2. 2 Not Available [facility] ([facility]) [address] [place], [address], 09/25/2023 10:12:26 09/24/19 24 09/25/2023 COMP. METAB OLIC PANEL (14) bilirubin, total 0.4 mg/dL 0.0-1. 2 Not Available [facility] ([facility]) [address] [place], [address], 09/25/2023 10:12:26 09/24/19 24 09/25/2023 COMP. METAB OLIC PANEL (14) alkaline phosphatase 67 IU/L 44-121 Not Available [facility] ([facility]) [address] [place], [address], 09/25/2023 10:12:26 09/24/19 24 09/25/2023 COMP. METAB OLIC PANEL (14) AST (SGOT) 18 IU/L 0-40 Not Available [facility] ([facility]) [address] [place], [address], 09/25/2023 10:12:26 09/24/19 24 09/25/2023 COMP. METAB OLIC PANEL (14) ALT (SGPT) 26 IU/L 0-32 Not Available [facility] ([facility]) [address] [place], [address], 09/25/2023 10:12:26 09/24/19 24 09/24/2023 TAMARA KWAN V CMP14 DEFAU LT tamara kwanv CMP14 default Commen t A hand- writt en panel /prof ile was recei charlette from your offic e. In accor dance with the [facility] Tamara uous Test Code Polic y dated December 2002, we have compl eted your order by using the close st curre ntly or forme rly recog nized AMA panel . We have assig ramin Compr ehens laya Metab olic Panel (14), Test Code #32[address]. If this is not the testi ng you wishe d to recei ve on this speci men, pleas e conta ct the [facility] Clien t Inqui ry/Te chnic al Servi jair Depar tment to zaria fy the test order . We appre ciate your busin ess. Not Available [facility] ([facility]) [address] [place], [address], 09/25/2023 10:12:27 09/24/19 24 09/25/2023 CBC/D IFF AMBIG UOUS DEFAU LT WBC 9.2 x10e3 /uL 3.4-10 .8 Not Available [facility] ([facility]) [address] [place], [address], 09/25/2023 10:12:27 09/24/19 24 09/25/2023 CBC/D IFF AMBIG UOUS DEFAU LT RBC 4.81 x10e6 /uL 3.77-5 .28 Not Available [facility] ([facility]) [address] [place], [address], 09/25/2023 10:12:27 09/24/19 24 09/25/2023 CBC/D IFF AMBIG UOUS DEFAU LT hemoglobin 11.9 g/dL 11.1-1 5.9 Not Available [facility] ([facility]) [address] [place], [address], 09/25/2023 10:12:27 09/24/19 24 09/25/2023 CBC/D IFF AMBIG UOUS DEFAU LT hematocrit 39.1 % 34.0-4 6.6 Not Available [facility] ([facility]) [address] [place], [address], 09/25/2023 10:12:27 09/24/19 24 09/25/2023 CBC/D IFF AMBIG UOUS DEFAU LT MCV 81 fL 79-97 Not Available [facility] ([facility]) [address] [place], [address], 09/25/2023 10:12:27 09/24/19 24 09/25/2023 CBC/D IFF AMBIG UOUS DEFAU LT MCH 24.7 pg 26.6-3 3.0 below low normal Not Available [facility] ([facility]) [address] [place], [address], 09/25/2023 10:12:27 09/24/19 24 09/25/2023 CBC/D IFF AMBIG UOUS DEFAU LT MCHC 30.4 g/dL 31.5-3 5.7 below low normal Not Available [facility] ([facility]) [address] [place], [address], 09/25/2023 10:12:27 09/24/19 24 09/25/2023 CBC/D IFF AMBIG UOUS DEFAU LT RDW 14.3 % 11.7-1 5.4 Not Available [facility] ([facility]) [address] [place], [address], 09/25/2023 10:12:27 09/24/19 24 09/25/2023 CBC/D IFF AMBIG UOUS DEFAU LT platelets 489 x10e3 /uL 150-45 0 above high normal Not Available [facility] ([facility]) [address] [place], [address], 09/25/2023 10:12:27 09/24/19 24 09/25/2023 CBC/D IFF AMBIG UOUS DEFAU LT neutrophils 40 % notest ab. Not Available [facility] ([facility]) [address] [place], [address], 09/25/2023 10:12:27 09/24/19 24 09/25/2023 CBC/D IFF AMBIG UOUS DEFAU LT lymphs 50 % notest ab. Not Available [facility] ([facility]) [address] [facility], [place], [address], 09/25/2023 10:12:27 09/24/19 24 09/25/2023 CBC/D IFF AMBIG UOUS DEFAU LT monocytes 7 % notest ab. Not Available [facility] ([facility]) [address] [facility], [place], [address], 09/25/2023 10:12:27 09/24/19 24 09/25/2023 CBC/D IFF AMBIG UOUS DEFAU LT eos 2 % notest ab. Not Available [facility] ([facility]) [address] [facility], [place], [address], 09/25/2023 10:12:27 09/24/19 24 09/25/2023 CBC/D IFF AMBIG UOUS DEFAU LT basos 1 % notest ab. Not Available [facility] ([facility]) [address] [facility], [place], [address], 09/25/2023 10:12:27 09/24/19 24 09/25/2023 CBC/D IFF AMBIG UOUS DEFAU LT neutrophils (absolute) 3.7 x10e3 /uL 1.4-7. 0 Not Available [facility] ([facility]) [address] [facility], [place], [address], 09/25/2023 10:12:27 09/24/19 24 09/25/2023 CBC/D IFF AMBIG UOUS DEFAU LT lymphs (absolute) 4.6 x10e3 /uL 0.7-3. 1 above high normal Not Available [facility] ([facility]) [address] [facility], [place], [address], 09/25/2023 10:12:27 09/24/19 24 09/25/2023 CBC/D IFF AMBIG UOUS DEFAU LT monocytes(ab solute) 0.7 x10e3 /uL 0.1-0. 9 Not Available [facility] ([facility]) [address] [facility], [place], [address], 09/25/2023 10:12:27 09/24/19 24 09/25/2023 CBC/D IFF AMBIG UOUS DEFAU LT eos (absolute) 0.2 x10e3 /uL 0.0-0. 4 Not Available [facility] ([facility]) [address] [facility], [place], [address], 09/25/2023 10:12:27 09/24/19 24 09/25/2023 CBC/D IFF AMBIG UOUS DEFAU LT baso (absolute) 0.1 x10e3 /uL 0.0-0. 2 Not Available [facility] ([facility]) [address] [facility], [place], [address], 09/25/2023 10:12:27 09/24/19 24 09/25/2023 CBC/D IFF AMBIG UOUS DEFAU LT immature granulocytes 0 % notest ab. Not Available [facility] ([facility]) [address] [facility], [place], [address], 09/25/2023 10:12:27 09/24/19 24 09/25/2023 CBC/D IFF AMBIG UOUS DEFAU LT immature grans (abs) 0.0 x10e3 /uL 0.0-0. 1 Not Available [facility] ([facility]) [address] [facility], [place], [address], 09/25/2023 10:12:27 09/24/19 24 09/25/2023 CBC/D IFF AMBIG UOUS DEFAU LT hematology comments: - A hand- writt en panel /prof ile was recei charlette from your offic e. In accor dance with the [facility] Tamara parrishous Test Code Polic y dated December 2002, we have asschirag ramin CBC with Diffe reyna al/Elham rodriguez t, Test Code #[address]. If this is not the testi ng you wishe d to recei ve on this speci men, pleas e conta ct the [facility] Clien t Inqui ry/ Techn ical Servi jair Depar tment to zaria fy the test order . We appre ciate your busin ess. Not Available [facility] ([facility]) [address] [place], [address], 09/25/2023 10:12:27 09/24/19 24 09/25/2023 VITAM IN B12 AND FOLAT E vitamin B12 330 pg/mL 232-12 45 Not Available [facility] ([facility]) [address] [place], [address], 09/25/2023 10:12:28 09/24/19 24 09/25/2023 VITAM IN B12 AND FOLAT E folate (folic acid), serum 11.0 NG/mL >3.0 A serum folat e chente ntrat ion of less than 3.1 ng/mL is consi dered to repre sent clini dyan defic iency . Not Available [facility] ([facility]) [address] [place], [address], 09/25/2023 10:12:28 09/24/19 24 09/25/2023 FE+TI BC+FE R iron bind.cap.(TI BC) 513 ug/dL 250-45 0 above high normal Not Available [facility] ([facility]) [address] [place], [address], 09/25/2023 10:12:28 09/24/19 24 09/25/2023 FE+TI BC+FE R UIBC 456 ug/dL 118-36 9 above high normal Not Available [facility] ([facility]) [address] [place], [address], 09/25/2023 10:12:28 09/24/19 24 09/25/2023 FE+TI BC+FE R iron 57 ug/dL 27-139 Not Available [facility] ([facility]) [address] [facility], [place], [address], 09/25/2023 10:12:28 09/24/19 24 09/25/2023 FE+TI BC+FE R iron saturation 11 % 15-55 below low normal Not Available [facility] ([facility]) [address] [facility], [place], [address], 09/25/2023 10:12:28 09/24/19 24 09/25/2023 FE+TI BC+FE R ferritin 10 NG/mL 15-150 below low normal Not Available [facility] ([facility]) [address] [facility], [place], [address], 09/25/2023 10:12:28 09/24/19 24 09/25/2023 VITAM IN D, 25-HY DROXY vitamin D, 25-hydroxy 49.2 NG/mL 30.0-1 00.0 Vitam in D defic iency has been defin ed by the Insti tute of Medic ine and an Endoc rine Socie ty pract ice guide line as a level of serum 25-OH vitam in D less than 20 ng/mL (1,2) . The Endoc rine Socie ty went on to furth er defin e vitam in D insuf ficie ncy as a level betwe en 21 and 29 ng/mL (2). 1. IOM (Inst itute of Medic ine). 2010. Dieta ry refer ence eboni es for calci um and D. Jen lei [place]: The Natio nal [facility] Press . 2. Daiana evans MF, Dimitri franco [place], Saritha off-F errar i KHOURY, et al. Evalu ation , treat ment, and preve ntion of vitam in D defic iency : an Endoc rine Socie ty clini dyan pract ice guide line. JCEM. 2010; 96(7) :1911 -30. Not Available [facility] ([facility]) [address] [facility] [place], [address], 09/25/2023 10:12:29 01/21/20 24 01/22/2024 ANTIN UCLEA R AB MULTI PLEX RFX 9 OVIDIO direct NEGATI VE negati ve Not Available [facility] ([facility]) [address] [facility], [place], [address], 01/22/2024 14:36:31 01/21/20 24 01/22/2024 LIPID PANEL cholesterol, total 219 mg/dL 100-19 9 above high normal Not Available [facility] ([facility]) [address] [facility] [place], [address], 01/22/2024 14:36:31 01/21/20 24 01/22/2024 LIPID PANEL triglyceride s 120 mg/dL 0-149 Not Available [facility] ([facility]) [address] [facility], [place], [address], 01/22/2024 14:36:31 01/21/20 24 01/22/2024 LIPID PANEL HDL cholesterol 75 mg/dL >39 Not Available [facility] ([facility]) [address] [facility] [place], [address], 01/22/2024 14:36:31 01/21/20 24 01/22/2024 LIPID PANEL VLDL cholesterol dyan 21 mg/dL 5-40 Not Available [facility] ([facility]) [address] [facility] [place], [address], 01/22/2024 14:36:31 01/21/20 24 01/22/2024 LIPID PANEL LDL chol calc ([facility]) 123 mg/dL 0-99 above high normal Not Available [facility] ([facility]) [address] [facility] [place], [address], 01/22/2024 14:36:31 01/21/20 24 01/22/2024 HEPAT IC FUNCT ION PANEL (7) protein, total 6.5 g/dL 6.0-8. 5 Not Available [facility] ([facility]) [address] [place], [address], 01/22/2024 14:36:32 01/21/20 24 01/22/2024 HEPAT IC FUNCT ION PANEL (7) albumin 4.2 g/dL 3.9-4. 9 Not Available [facility] ([facility]) [address] [facility], [place], [address], 01/22/2024 14:36:32 01/21/20 24 01/22/2024 HEPAT IC FUNCT ION PANEL (7) bilirubin, total 0.5 mg/dL 0.0-1. 2 Not Available [facility] ([facility]) [address] [place], [address], 01/22/2024 14:36:32 01/21/20 24 01/22/2024 HEPAT IC FUNCT ION PANEL (7) bilirubin, direct 0.14 mg/dL 0.00-0 .40 Not Available [facility] ([facility]) [address] [place], [address], 01/22/2024 14:36:32 01/21/20 24 01/22/2024 HEPAT IC FUNCT ION PANEL (7) alkaline phosphatase 64 IU/L 44-121 Not Available [facility] ([facility]) [address] [place], [address], 01/22/2024 14:36:32 01/21/20 24 01/22/2024 HEPAT IC FUNCT ION PANEL (7) AST (SGOT) 17 IU/L 0-40 Not Available [facility] ([facility]) [address] [place], [address], 01/22/2024 14:36:32 01/21/20 24 01/22/2024 HEPAT IC FUNCT ION PANEL (7) ALT (SGPT) 15 IU/L 0-32 Not Available [facility] ([facility]) [address] [facility], [place], [address], 01/22/2024 14:36:32 01/21/20 24 01/22/2024 BMP7+ EGFR glucose 89 mg/dL 70-99 Not Available [facility] ([facility]) [address] [facility], [place], [address], 01/22/2024 14:36:33 01/21/20 24 01/22/2024 BMP7+ EGFR BUN 18 mg/dL 8-27 Not Available [facility] ([facility]) [address] [facility], [place], [address], 01/22/2024 14:36:33 01/21/20 24 01/22/2024 BMP7+ EGFR creatinine 0.74 mg/dL 0.57-1 .00 Not Available [facility] ([facility]) [address] [facility], [place], [address], 01/22/2024 14:36:33 01/21/20 24 01/22/2024 BMP7+ EGFR eGFR 90 mL/mi n/1.7 3 >59 Not Available [facility] ([facility]) [address] [facility], [place], [address], 01/22/2024 14:36:33 01/21/20 24 01/22/2024 BMP7+ EGFR sodium 140 mmol/ L 134-14 4 Not Available [facility] ([facility]) [address] [facility], [place], [address], 01/22/2024 14:36:33 01/21/20 24 01/22/2024 BMP7+ EGFR potassium 4.9 mmol/ L 3.5-5. 2 Not Available [facility] ([facility]) [address] [place], [address], 01/22/2024 14:36:33 01/21/20 24 01/22/2024 BMP7+ EGFR chloride 102 mmol/ L 96-106 Not Available [facility] ([facility]) [address] [facility], [place], [address], 01/22/2024 14:36:33 01/21/20 24 01/22/2024 BMP7+ EGFR carbon dioxide, total 24 mmol/ L 20-29 Not Available [facility] ([facility]) [address] [facility], [place], [address], 01/22/2024 14:36:33 01/21/20 24 01/21/2024 CBC WITH DIFFE RENTI AL/PL ATELE T WBC 7.0 x10e3 /uL 3.4-10 .8 Not Available [facility] ([facility]) [address] [facility], [place], [address], 01/22/2024 14:36:33 01/21/20 24 01/21/2024 CBC WITH DIFFE RENTI AL/PL ATELE T RBC 4.65 x10e6 /uL 3.77-5 .28 Not Available [facility] ([facility]) [address] [facility], [place], [address], 01/22/2024 14:36:33 01/21/20 24 01/21/2024 CBC WITH DIFFE RENTI AL/PL ATELE T hemoglobin 11.8 g/dL 11.1-1 5.9 Not Available [facility] ([facility]) [address] [facility], [place], [address], 01/22/2024 14:36:33 01/21/20 24 01/21/2024 CBC WITH DIFFE RENTI AL/PL ATELE T hematocrit 38.6 % 34.0-4 6.6 Not Available [facility] ([facility]) [address] [facility], [place], [address], 01/22/2024 14:36:33 01/21/20 24 01/21/2024 CBC WITH DIFFE RENTI AL/PL ATELE T MCV 83 fL 79-97 Not Available [facility] ([facility]) [address] [facility], [place], [address], 01/22/2024 14:36:33 01/21/20 24 01/21/2024 CBC WITH DIFFE RENTI AL/PL ATELE T MCH 25.4 pg 26.6-3 3.0 below low normal Not Available [facility] ([facility]) [address] [facility], [place], [address], 01/22/2024 14:36:33 01/21/20 24 01/21/2024 CBC WITH DIFFE RENTI AL/PL ATELE T MCHC 30.6 g/dL 31.5-3 5.7 below low normal Not Available [facility] ([facility]) [address] [facility], [place], [address], 01/22/2024 14:36:33 01/21/20 24 01/21/2024 CBC WITH DIFFE RENTI AL/PL ATELE T RDW 14.4 % 11.7-1 5.4 Not Available [facility] ([facility]) [address] [facility], [place], [address], 01/22/2024 14:36:33 01/21/20 24 01/21/2024 CBC WITH DIFFE RENTI AL/PL ATELE T platelets 354 x10e3 /uL 150-45 0 Not Available [facility] ([facility]) [address] [place], [address], 01/22/2024 14:36:33 01/21/20 24 01/21/2024 CBC WITH DIFFE RENTI AL/PL ATELE T neutrophils 49 % notest ab. Not Available [facility] ([facility]) [address] [facility], [place], [address], 01/22/2024 14:36:33 01/21/20 24 01/21/2024 CBC WITH DIFFE RENTI AL/PL ATELE T lymphs 38 % notest ab. Not Available [facility] ([facility]) [address] [facility], [place], [address], 01/22/2024 14:36:33 01/21/20 24 01/21/2024 CBC WITH DIFFE RENTI AL/PL ATELE T monocytes 9 % notest ab. Not Available [facility] ([facility]) [address] [facility], [place], [address], 01/22/2024 14:36:33 01/21/20 24 01/21/2024 CBC WITH DIFFE RENTI AL/PL ATELE T eos 3 % notest ab. Not Available [facility] ([facility]) [address] [facility], [place], [address], 01/22/2024 14:36:33 01/21/20 24 01/21/2024 CBC WITH DIFFE RENTI AL/PL ATELE T basos 1 % notest ab. Not Available [facility] ([facility]) [address] [facility], [place], [address], 01/22/2024 14:36:33 01/21/20 24 01/21/2024 CBC WITH DIFFE RENTI AL/PL ATELE T neutrophils (absolute) 3.5 x10e3 /uL 1.4-7. 0 Not Available [facility] ([facility]) [address] [facility], [place], [address], 01/22/2024 14:36:33 01/21/20 24 01/21/2024 CBC WITH DIFFE RENTI AL/PL ATELE T lymphs (absolute) 2.6 x10e3 /uL 0.7-3. 1 Not Available [facility] ([facility]) [address] [facility], [place], [address], 01/22/2024 14:36:33 01/21/20 24 01/21/2024 CBC WITH DIFFE RENTI AL/PL ATELE T monocytes(ab solute) 0.6 x10e3 /uL 0.1-0. 9 Not Available [facility] ([facility]) [address] [facility], [place], [address], 01/22/2024 14:36:33 01/21/20 24 01/21/2024 CBC WITH DIFFE RENTI AL/PL ATELE T eos (absolute) 0.2 x10e3 /uL 0.0-0. 4 Not Available [facility] ([facility]) [address] [facility], [place], [address], 01/22/2024 14:36:33 01/21/20 24 01/21/2024 CBC WITH DIFFE RENTI AL/PL ATELE T baso (absolute) 0.1 x10e3 /uL 0.0-0. 2 Not Available [facility] ([facility]) [address] [facility], [place], [address], 01/22/2024 14:36:33 01/21/20 24 01/21/2024 CBC WITH DIFFE RENTI AL/PL ATELE T immature granulocytes 0 % notest ab. Not Available [facility] ([facility]) [address] [facility], [place], [address], 01/22/2024 14:36:33 01/21/20 24 01/21/2024 CBC WITH DIFFE RENTI AL/PL ATELE T immature grans (abs) 0.0 x10e3 /uL 0.0-0. 1 Not Available [facility] ([facility]) [address] [place], [address], 01/22/2024 14:36:33 01/21/20 24 01/22/2024 SJOGR EN'S AB, ANTI- SS-A/ -SS-B sjogren's anti-ss-A <0.2 Not Available [facility] ([facility]) [address] [facility], [place], [address], 01/22/2024 14:36:34 01/21/20 24 01/22/2024 SJOGR EN'S AB, ANTI- SS-A/ -SS-B sjogren's anti-ss-B <0.2 Not Available [facility] ([facility]) [address] [place], [address], 01/22/2024 14:36:34 01/21/20 24 01/22/2024 FE+TI BC+FE R iron bind.cap.(TI BC) 438 ug/dL 250-45 0 Not Available [facility] ([facility]) [address] [place], [address], 01/22/2024 14:36:34 01/21/20 24 01/22/2024 FE+TI BC+FE R UIBC 385 ug/dL 118-36 9 above high normal Not Available [facility] ([facility]) [address] [place], [address], 01/22/2024 14:36:34 01/21/20 24 01/22/2024 FE+TI BC+FE R iron 53 ug/dL 27-139 Not Available [facility] ([facility]) [address] [place], [address], 01/22/2024 14:36:34 01/21/20 24 01/22/2024 FE+TI BC+FE R iron saturation 12 % 15-55 below low normal Not Available [facility] ([facility]) [address] [place], [address], 01/22/2024 14:36:34 01/21/20 24 01/22/2024 FE+TI BC+FE R ferritin 7 NG/mL 15-150 below low normal Not Available [facility] ([facility]) [address] [place], [address], 01/22/2024 14:36:34 08/04/19 25 08/05/2024 LIPID PANEL WITH LDL/H DL RATIO cholesterol, total 208 mg/dL 100-19 9 above high normal Not Available [facility] [address] [place], [address], 08/09/2024 17:07:49 08/04/19 25 08/05/2024 LIPID PANEL WITH LDL/H DL RATIO triglyceride s 121 mg/dL 0-149 Not Available [facility] [address] [place], [address], 08/09/2024 17:07:49 08/04/19 25 08/05/2024 LIPID PANEL WITH LDL/H DL RATIO HDL cholesterol 60 mg/dL >39 Not Available [facility] [address] [place], [address], 08/09/2024 17:07:49 08/04/19 25 08/05/2024 LIPID PANEL WITH LDL/H DL RATIO VLDL cholesterol dyan 21 mg/dL 5-40 Not Available [facility] [address] [place], [address], 08/09/2024 17:07:49 08/04/19 25 08/05/2024 LIPID PANEL WITH LDL/H DL RATIO LDL chol calc ([facility]) 127 mg/dL 0-99 above high normal Not Available [facility] [address] [place], [address], 08/09/2024 17:07:49 08/04/19 25 08/05/2024 LIPID PANEL WITH LDL/H DL RATIO LDL/HDL ratio 2.1 ratio 0.0-3. 2 LDL/H DL Ratio Men Women 1/2 Avg.R isk 1.0 1.5 Avg.R isk 3.6 3.2 2X Avg.R isk 6.2 5.0 3X Avg.R isk 8.0 6.1 Not Available [facility] [address] [place], [address], 08/09/2024 17:07:49 08/04/19 25 08/05/2024 HEPAT IC FUNCT ION PANEL (7) protein, total 6.5 g/dL 6.0-8. 5 Not Available [facility] [address] [place], [address], 08/09/2024 17:07:51 08/04/19 25 08/05/2024 HEPAT IC FUNCT ION PANEL (7) albumin 4.1 g/dL 3.9-4. 9 Not Available [facility] [address] [place], [address], 08/09/2024 17:07:51 08/04/19 25 08/05/2024 HEPAT IC FUNCT ION PANEL (7) bilirubin, total 0.6 mg/dL 0.0-1. 2 Not Available [facility] [address] [place], [address], 08/09/2024 17:07:51 08/04/19 25 08/05/2024 HEPAT IC FUNCT ION PANEL (7) bilirubin, direct 0.16 mg/dL 0.00-0 .40 Not Available [facility] [address] [place], [address], 08/09/2024 17:07:51 08/04/19 25 08/05/2024 HEPAT IC FUNCT ION PANEL (7) alkaline phosphatase 76 IU/L 44-121 Not Available [facility] [address] [place], [address], 08/09/2024 17:07:51 08/04/19 25 08/05/2024 HEPAT IC FUNCT ION PANEL (7) AST (SGOT) 23 IU/L 0-40 Not Available [facility] [address] [place], [address], 08/09/2024 17:07:51 08/04/19 25 08/05/2024 HEPAT IC FUNCT ION PANEL (7) ALT (SGPT) 25 IU/L 0-32 Not Available [facility] [address] [place], [address], 08/09/2024 17:07:51 08/04/19 25 08/05/2024 BMP7+ EGFR glucose 85 mg/dL 70-99 Not Available [facility] [address] [place], [address], 08/09/2024 17:07:52 08/04/19 25 08/05/2024 BMP7+ EGFR BUN 13 mg/dL 8-27 Not Available [facility] [address] [place], [address], 08/09/2024 17:07:52 08/04/19 25 08/05/2024 BMP7+ EGFR creatinine 0.69 mg/dL 0.57-1 .00 Not Available [facility] [address] [place], [address], 08/09/2024 17:07:52 08/04/19 25 08/05/2024 BMP7+ EGFR eGFR 96 mL/mi n/1.7 3 >59 Not Available [facility] [address] [place], [address], 08/09/2024 17:07:52 08/04/19 25 08/05/2024 BMP7+ EGFR sodium 139 mmol/ L 134-14 4 Not Available [facility] [address] [place], [address], 08/09/2024 17:07:52 08/04/19 25 08/05/2024 BMP7+ EGFR potassium 3.9 mmol/ L 3.5-5. 2 Not Available [facility] [address] [place], [address], 08/09/2024 17:07:52 08/04/19 25 08/05/2024 BMP7+ EGFR chloride 102 mmol/ L 96-106 Not Available [facility] [address] [place], [address], 08/09/2024 17:07:52 08/04/19 25 08/05/2024 BMP7+ EGFR carbon dioxide, total 23 mmol/ L 20-29 Not Available [facility] [address] [place], [address], 08/09/2024 17:07:52 08/04/1908/09/2024 VITAM IN D, 25-HY DROXY , TOTAL vitamin D, 25-hydroxy, serum 51 NG/mL Refer ence Range : All Ages: Targe t level s 30 - 100 Not Available [facility] [address] [place], [address], 08/09/2024 17:07:53 08/04/19 25 08/04/2024 CBC WITH DIFFE RENTI AL/PL ATELE T WBC 7.0 x10e3 /uL 3.4-10 .8 Not Available [facility] [address] [place], [address], 08/09/2024 17:07:54 08/04/1908/04/2024 CBC WITH DIFFE RENTI AL/PL ATELE T RBC 4.77 x10e6 /uL 3.77-5 .28 Not Available [facility] [address] [place], [address], 08/09/2024 17:07:54 08/04/1908/04/2024 CBC WITH DIFFE RENTI AL/PL ATELE T hemoglobin 13.4 g/dL 11.1-1 5.9 Not Available [facility] [address] [place], [address], 08/09/2024 17:07:54 08/04/19 25 08/04/2024 CBC WITH DIFFE RENTI AL/PL ATELE T hematocrit 40.7 % 34.0-4 6.6 Not Available [facility] [address] [place], [address], 08/09/2024 17:07:54 08/04/19 25 08/04/2024 CBC WITH DIFFE RENTI AL/PL ATELE T MCV 85 fL 79-97 Not Available [facility] [address] [place], [address], 08/09/2024 17:07:54 08/04/19 25 08/04/2024 CBC WITH DIFFE RENTI AL/PL ATELE T MCH 28.1 pg 26.6-3 3.0 Not Available [facility] [address] [place], [address], 08/09/2024 17:07:54 08/04/19 25 08/04/2024 CBC WITH DIFFE RENTI AL/PL ATELE T MCHC 32.9 g/dL 31.5-3 5.7 Not Available [facility] [address] [place], [address], 08/09/2024 17:07:54 08/04/19 25 08/04/2024 CBC WITH DIFFE RENTI AL/PL ATELE T RDW 13.3 % 11.7-1 5.4 Not Available [facility] [address] [place], [address], 08/09/2024 17:07:54 08/04/19 25 08/04/2024 CBC WITH DIFFE RENTI AL/PL ATELE T platelets 392 x10e3 /uL 150-45 0 Not Available [facility] [address] [place], [address], 08/09/2024 17:07:54 08/04/19 25 08/04/2024 CBC WITH DIFFE RENTI AL/PL ATELE T neutrophils 47 % notest ab. Not Available [facility] [address] [place], [address], 08/09/2024 17:07:54 08/04/19 25 08/04/2024 CBC WITH DIFFE RENTI AL/PL ATELE T lymphs 42 % notest ab. Not Available [facility] [address] [place], [address], 08/09/2024 17:07:54 08/04/19 25 08/04/2024 CBC WITH DIFFE RENTI AL/PL ATELE T monocytes 7 % notest ab. Not Available [facility] [address] [place], [address], 08/09/2024 17:07:54 08/04/19 25 08/04/2024 CBC WITH DIFFE RENTI AL/PL ATELE T eos 3 % notest ab. Not Available [facility] [address] [place], [address], 08/09/2024 17:07:54 08/04/19 25 08/04/2024 CBC WITH DIFFE RENTI AL/PL ATELE T basos 1 % notest ab. Not Available [facility] [address] [place], [address], 08/09/2024 17:07:54 08/04/19 25 08/04/2024 CBC WITH DIFFE RENTI AL/PL ATELE T neutrophils (absolute) 3.3 x10e3 /uL 1.4-7. 0 Not Available [facility] [address] [place], [address], 08/09/2024 17:07:54 08/04/19 25 08/04/2024 CBC WITH DIFFE RENTI AL/PL ATELE T lymphs (absolute) 2.9 x10e3 /uL 0.7-3. 1 Not Available [facility] [address] [place], [address], 08/09/2024 17:07:54 08/04/19 25 08/04/2024 CBC WITH DIFFE RENTI AL/PL ATELE T monocytes(ab solute) 0.5 x10e3 /uL 0.1-0. 9 Not Available [facility] [address] [place], [address], 08/09/2024 17:07:54 08/04/19 25 08/04/2024 CBC WITH DIFFE RENTI AL/PL ATELE T eos (absolute) 0.2 x10e3 /uL 0.0-0. 4 Not Available [facility] [address] [place], [address], 08/09/2024 17:07:54 08/04/19 25 08/04/2024 CBC WITH DIFFE RENTI AL/PL ATELE T baso (absolute) 0.1 x10e3 /uL 0.0-0. 2 Not Available [facility] [address] [place], [address], 08/09/2024 17:07:54 08/04/19 25 08/04/2024 CBC WITH DIFFE RENTI AL/PL ATELE T immature granulocytes 0 % notest ab. Not Available [facility] [address] [place], [address], 08/09/2024 17:07:54 08/04/19 25 08/04/2024 CBC WITH DIFFE RENTI AL/PL ATELE T immature grans (abs) 0.0 x10e3 /uL 0.0-0. 1 Not Available [facility] [address] [place], [address], 08/09/2024 17:07:54 12/23/19 24 12/23/2023 MAMMO , sofia duffy, reginaldo al, bilat eral No observ ation record ed. [facility] [id number] [place], [address], 12/30/2023 06:15:08 02/20/20 24 10/29/2023 DEXA, axial skele ton No observ ation record ed. Not Available 2023 13:55:18 03/19/20 24 03/19/2024 US, sofia duffy for abdom inal aorti c aneur ysm No observ ation record ed. [facility] [address], [place], [address], 03/20/2024 01:02:31 07/24/19 25 07/23/2024 CT, abdom en + pelvi s, w/ contr ast No observ ation record ed. [facility] [address], [place], [address], 07/26/2024 12:51:33 Result Notes None recorded. Problems Name Problem SNOMED Code Status Onset Date Resolution Date Notes Provider Name and Address Organization Details Recorded Time History of anemia 752100018 Active 2023 KEVIN Yip Attn: Francy mukherjee,[address] [facility], [place], [address], [place] [facility] 4 22:33:33 Vitamin D deficiency 70885078 Active 2023 KEVIN Yip Attn: Francy mukherjee,[address] [facility], [place], [address], [place] [facility] 4 22:33:34 Fatigue 66123516 Active 2023 KEVIN Yip Attn: Francy mukherjee,[address] [facility], [place], [address], [place] [facility] 4 22:33:35 Hypothyroidism 39316066 Active 2023 KEVIN Yip Attn: Francy mukherjee,[address] [facility], [place], [address], [place] [facility] 4 22:33:38 Hyperlipidemia 04581945 Active 2023 KEVIN Yip Attn: Francy mukherjee,[address] [facility], [place], [address], [place] [facility] 4 22:33:39 Benign essential hypertension 2820765 Active 2023 KEVIN Yip Attn: Jeancoreen mukherjee,[address] [facility], [place], [address], [place] [facility] 4 22:33:41 Iron deficiency 10748341 Active 2023 KEVIN Yip Attn: Accountcoreen mukherjee,[address] [facility], [place], [address], [place] [facility] 4 12:38:30 Neuropathy 677969149 Active 2023 KEVIN Yip Attn: Jeancoreen mukherjee,[address] [facility], [place], [address] [facility] 4 12:39:09 Mucous membrane dryness 863554566 Active 2023 KEVIN Yip Attn: Jeancoreen mukherjee,[address] [facility], [place], [address], [place] [facility] 4 12:39:36 Type 2 diabetes mellitus without complication 398087191 Active 2023 KEVIN Yip Attn: Jeancoreen mukherjee,[address] [place], [address] [facility] 4 10:09:05 Long-term drug therapy Active 2023 KEVIN Yip Attn: Jeancoreen mukherjee,[address] [place], [address] [facility] 4 19:29:14 Body mass index 20-24 - normal 949320689 Active 2024 Kayla Cook [place], [place] [facility] 5 10:48:28 History of repair of inguinal hernia 988654054 Active 2024 KEVIN Yip Attn: Francy mukherjee,[address] [facility], [place], [address], [place] [facility] 17:08:00 Problem Notes None recorded. Procedures Surgical History Date Name Laterality Status Provider Name and Address Organization Details Recorded Time Diabetic Foot Exam completed Kayla Cook MA [facility] 08/09/2024 10:59:18 Hernia Repair completed Kayla Cook MA [facility] 09/12/2023 15:57:10 D & c after delivery completed Kayla Cook MA [facility] 09/12/2023 15:57:23 Imaging Results Imaging Date Name Status LastModified by Organiz ation Details LastModified Time 12/23/2023 MAMMO, screening, digital, bilateral completed [facility] [id number] [place], [address], 12/30/2023 06:15:08 10/29/2023 [facility] 02/21/2024 13:55:18 03/19/2024 US, screening for abdominal aortic aneurysm completed [facility] [address], [place], [address], 03/20/2024 01:02:31 07/23/2024 CT, abdomen + pelvis, w/ contrast completed [facility] [address], [place], [address], 07/26/2024 12:51:33 Procedure Notes None recorded. Medical Equipment None Reported. Allergies Allergen ID Allergen Name Allergen Category Reaction Reaction Severity Criticality Documentation Date Start Date Code Code System Note Provider Name and Address Organization Details Recorded Time 537423 Substance with sulfonami de structure and antibacte rial mechanism of action (substanc e) medicatio n rash Not available Not available 09/12/2023 25837 8003 SNOMED PERCY Rose, [facility] 12:02:37 701820 ciproflox acin medicatio n Not available Not available Not available 09/12/2023 2551 RxNorm Per patie nt, intol eranc e Jyothi Lizandro [place] [facility] 4 09:33:35 201202 bee pollen environme nt,medica tion hives Not available Not available 09/12/2023 48262 7 RxNorm Kayla Cook [place] [facility] 4 12:02:55 902100 latex environme nt,medica tion rash Not available Not available 09/12/2023 68207 91 RxNorm Kayla [place] [facility] 4 12:03:00 582971 nitrofura ntoin medicatio n nausea Not available Not available 09/12/2023 7454 RxNorm Kayla [place] [facility] 4 12:03:24 934714 Diflucan medicatio n anaphylax is severe high 09/18/2023202381 3 RxNorm Yessica Hampton LPN [place] [facility] 4 12:57:04 Medications Name Sig Start Date Stop Date Status Note LastModified by Organization Details LastModified Time amoxicill in 500 mg capsule TAKE 1 CAPSULE BY MOUTH THREE TIMES DAILY UNTIL GONE 09/11 completed Not Available Not Available Not Available metformin 500 mg tablet TAKE 1/2 TABLET THREE TIMESDAI LY WITH MEALS active Not Available Not Available No t Available doxycycli ne hyclate 100 mg capsule Take 1 capsule twice a day by oral route with meal(s), for insect bite. 02/22 completed Not Available Not Available Not Available clindamyc in HCl 300 mg capsule TAKE 1 CAPSULE BY MOUTH EVERY 6 HOURS 09/11 completed Not Available Not Available Not Available atorvasta tin 10 mg tablet Take by oral route for 90 days. 07/07 completed Not Available Not Available Not Available azithromy leonidas 250 mg tablet TAKE 2 TABLETS (500 MG) BY ORAL ROUTE ONCE DAILY FOR 1 DAY THEN 1 TABLET (250 MG) BY ORAL ROUTE ONCE DAILY FOR 4 DAYS 08/09 completed Not Available Not Available Not Available fluconazo le 150 mg tablet Take 1 tablet every other day by oral route. 01/12 completed Not Available Not Available Not Available hydrocodo ne 5 mg-acetam inophen 325 mg tablet TAKE 1 TO 2 TABLETS BY MOUTH EVERY 6 HOURS NEEDED FOR PAIN 09/11 completed Not Available Not Available Not Available ondansetr on HCl 4 mg tablet TAKE 1 TO 2 TABLETS BY MOUTH EVERY 8 HOURS NEEDED FOR NAUSEA OR VOMITING 01/12 completed Not Available Not Available Not Available Accu-Chek Softclix Lancets USE TO TEST 2 TO 3 TIMES A WEEK active Not Available Not Available No t Available omeprazol e 40 mg capsule,d elayed release TAKE 1 CAPSULE BY MOUTH DAILY 01/12 completed Not Available Not Available Not Available triamcino lone acetonide 0.1 % topical cream APPLY TOPICALL Y TO INSECT BITE TWICE DAILY NEEDED active Not Available Not Available No t Available amoxicill in 500 mg tablet TAKE 1 TABLET BY MOUTH EVERY 6 HOURS UNTIL ALL TAKEN 09/11 completed Not Available Not Available Not Available ofloxacin 0.3 % ear drops INSTILL 3 DROPS TO RIGHT EAR DAILY 09/11 completed Not Available Not Available Not Available amoxicill in 875 mg tablet TAKE 1 TABLET BY MOUTH TWICE DAILY 09/11 completed Not Available Not Available Not Available lorazepam 0.5 mg tablet TAKE 1 TO 2 TABLETS BY MOUTH 30 MINUTES BEFORE MRI TESTING 09/11 completed Not Available Not Available Not Available levothyro xine 50 mcg tablet TAKE 1 TABLET DAILY active Not Available Not Available No t Available omeprazol e 20 mg capsule,d elayed release TAKE 1 CAPSULE BY MOUTH DAILY 01/12 completed Not Available Not Available Not Available hydrochlo rothiazid e 25 mg tablet 09/11 completed Not Available Not Available Not Available gabapenti n 100 mg capsule TAKE 1 CAPSULE BY MOUTH DAILY active Not Available Not Available No t Available epinephri ne 0.3 mg/0.3 mL injection , auto-inje ctor INJECT 1 PEN IN THE MUSCLE DIRECTED FOR ANAPHYLA XIS active Not Available Not Available No t Available estradiol 0.01% (0.1 mg/gram) vaginal cream 2 GRAMS INSERTED 3 TIMES A WEEK active pt is on hold Not Available Not Available Not Available methylpre dnisolone 4 mg tablets in a dose pack FOLLOW PACKAGE DIRECTIO NS 09/26 completed Not Available Not Available Not Available albuterol sulfate HFA 90 mcg/actua tion aerosol inhaler Inhale by inhalati on route for 25 days. 08/09 completed pt refused states that she was having anxiety Not Available Not Available Not Available ondansetr on 4 mg disintegr ating tablet DISSOLVE 1 TABLET ON THE TONGUE EVERY 6 TO 8 HOURS NEEDED FOR NAUSEA 08/09 completed Not Available Not Available Not Available metformin ER 500 mg tablet,ex tended release 24 hr SEE ATTACHED TITRATIN G DIRECTIO NS 09/11 completed Not Available Not Available Not Available amoxicill in 875 mg-potass ium clavulana te 125 mg tablet TAKE 1 TABLET BY MOUTH EVERY 12 HOURS 09/11 completed Not Available Not Available Not Available ezetimibe 10 mg tablet TAKE 1 TABLET BY MOUTH EVERY DAY active Not Available Not Available No t Available calcium carbonate 750MG TABLET ONCE DAILY active Not Available Not Available No t Available Augmentin 09/11 completed Not Available Not Available Not Available promethaz ine 09/11 completed 25 mg Not Available Not Available Not Available Miralax ONCE DAILY active pt has start back Not Available Not Available Not Available hydrochlo rothiazid e 12.5 mg tablet TAKE 1 TABLET BY MOUTH EVERY DAY active Not Available Not Available No t Available cholecalc iferol (vitamin D3) 1,250 mcg (50,000 unit) capsule Take 1 capsule by oral route for 90 days. active Not Available Not Available No t Available Accu-Chek Christin Plus test strips CHECK ONCE DAILY active Not Available Not Available No t Available Accu-Chek Guide Me Glucose Meter USE TO MONITOR BLOOD SUGAR LEVELS DIRECTED active Not Available Not Available No t Available Vitals Date Recorded Body height Respiratory rate Body mass index (BMI) Body weight Oxygen saturation Oxygen saturation in Arterial blood by Pulse oximetry Heart rate Provider Name and Address Organization Details Last Updated DateTime 4 158.75 cm 20 /min 20.3 kg/m2 56058.9 4 g 100 % 100 % 57 /min Kayla Cook [place] - [facility] 4 12:10:10 Date Recorded Systolic blood pressure Diastolic blood pressure Systolic blood pressure Diastolic blood pressure Provider Name and Address Organization Details Last Updated DateTime 09/12/2023 140 mm[Hg] 82 mm[Hg] 138 mm[Hg] 80 mm[Hg] KEVIN Yip Attn: Accounting ,[address] [place], [address] , [facility] 4 12:25:05 Date Recorded Body height Body mass index (BMI) Body weight Respiratory rate Oxygen saturation Oxygen saturation in Arterial blood by Pulse oximetry Heart rate Systolic blood pressure Diastolic blood pressure Provider Name and Address Organization Details Last Updated DateTime 4 158.75 cm 20.3 kg/m2 92281.9 4 g 20 /min 99 % 99 % 83 /min 132 mm[Hg] 82 mm[Hg] Kayla Cook MA [facility] 4 15:51:56 Date Recorded Body height Respiratory rate Oxygen saturation Oxygen saturation in Arterial blood by Pulse oximetry Heart rate Systolic blood pressure Diastolic blood pressure Provider Name and Address Organization Details Last Updated DateTime 158.75 cm 20 /min 100 % 100 % 70 /min 126 mm[Hg] 82 mm[Hg] Kayla Cook MA [facility] 4 09:29:29 Date Recorded Body mass index (BMI) Body weight Systolic blood pressure Diastolic blood pressure Provider Name and Address Organization Details Last Updated DateTime 02/23/2024 20.2 kg/m2 86787.35 g 122 mm[Hg] 80 mm[Hg] KEVIN Yip Attn: Accounting ,[address] [place], [address] , [place] [facility] 02/23/2024 10:06:44 Date Recorded Pain severity - 0-10 verbal numeric rating [Score] - Reported Provider Name and Address Organization Details Last Updated DateTime 02/23/2024 Nona Bone [facility] 02/23/2024 09:31:43 Date Recorded Body height Body mass index (BMI) Body weight Respiratory rate Oxygen saturation Oxygen saturation in Arterial blood by Pulse oximetry Heart rate Systolic blood pressure Diastolic blood pressure Provider Name and Address Organization Details Last Updated DateTime 5 158.75 cm 20.5 kg/m2 92910.5 3 g 20 /min 99 % 99 % 73 /min 116 mm[Hg] 78 mm[Hg] Kayla Cook MA [facility] 5 15:07:41 Date Recorded Body height Body mass index (BMI) Body weight Oxygen saturation Oxygen saturation in Arterial blood by Pulse oximetry Heart rate Respiratory rate Systolic blood pressure Diastolic blood pressure Provider Name and Address Organization Details Last Updated DateTime 158.75 cm 20 kg/m2 52065.7 5 g 99 % 99 % 63 /min 20 /min 126 mm[Hg] 80 mm[Hg] Kayla Cook MA [facility] 10:57:38 Date Recorded Systolic blood pressure Diastolic blood pressure Provider Name and Address Organization Details Last Updated DateTime 08/09/2024 120 mm[Hg] 80 mm[Hg] KEVIN Yip Attn: Accounting,[address] [place], [address], [facility] 08/09/2024 11:16:37 Social History Question Answer Notes LastModified by Organizat ion Details LastModified Time Tobacco Smoking Status Never Smoker Kayla Cook MA null, [facility] 09/12/2023 12:08:54 Do You Have An Advance Directive? Yes Information not available 09/12/2023 What Is Your Level Of Alcohol Consumption? Occasional Information not available 02/23/2024 Are You Blind Or Do You Have Difficulty Seeing? No Information not available 09/12/2023 What Is Your Level Of Caffeine Consumption? Occasional Information not available 02/23/2024 In The 14 Days Before Symptom Onset, Have You Had Close Contact With A Laboratory-confir med COVID-19 While That Case Was Ill? No Information not available 09/12/2023 In The 14 Days Before Symptom Onset, Have You Had Close Contact With A Person Who Is Under Investigation For COVID-19 While That Person Was Ill? No Information not available 09/12/2023 Have You Been To An Area Known To Be High Risk For COVID-19? No Information not available 09/12/2023 Are You Currently Employed? Yes Information not available 09/12/2023 Are You Deaf Or Do You Have Serious Difficulty Hearing? No Information not available 09/12/2023 What Type Of Diet Are You Following? REGULAR Information not available 02/23/2024 What Is The Highest Grade Or Level Of School You Have Completed Or The Highest Degree You Have Received? 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 Yes Information not available 02/23/2024 In The Past 7 Days, How Many Days Did You Exercise? 5 Information not available 02/23/2024 On The Days When You Exercised, How Long Did You Exercise Each Day (in Minutes)? 60 Information not available 02/23/2024 How Intense Was Your Typical Exercise? Heavy (jogging Or Swimming) Information not available 02/23/2024 In The Past 7 Days, How Much Pain Have You [place]? Some Information not available 02/23/2024 In General, Would You Say You Health Is: Very Good Information not available 02/23/2024 How Would You Describe The Condition Of Your Mouth And Teeth- Including False Teeth Or Dentures? Very Good Information not available 02/23/2024 Each Night, How Many Hours Of Sleep Do You Get? 7 Information no t available 02/23/2024 Has Anyone Ever Told You That You Snore? Yes Information not available 02/23/2024 In The Past 7 Days, How Often Have You [place] Sleepy In The Daytime? Sometimes Information not available 02/23/2024 # Alcohol Drinks Per Week 0 Information not available 02/23/2024 What Was The Date Of Your Most Recent Tobacco Screening? 08/09/2024 Information not available 08/09/2024 What Is Your Relationship Status? Information not available 02/23/2024 Do You Use Your Seat Belt Or Car Seat Routinely? Yes Information not available 09/12/2023 Do You Have Smoke And Carbon Monoxide Detectors In Your Home? Yes Information not available 09/12/2023 Do You Feel Stressed (tense, Restless, Nervous, Or Anxious, Or Unable To Sleep At Night)? [id number] Information not available 02/23/2024 Do You Use Any Illicit Or Recreational Drugs? No Information not available 09/12/2023 Do You Use Sunscreen Routinely? Yes Information not available 02/23/2024 Has Tobacco Cessation Counseling Been Provided? No Information not available 09/12/2023 Do You Or Have You Ever Used Any Other Forms Of Tobacco Or Nicotine? No Information not available 09/12/2023 Sex: Female Functional Status Question Answer Note LastModified by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
--- OUTSIDE RECORDS SUMMARY | 2024-10-15 08:14 | XMS_ITS | Encounter Summary ---
Author Organization [facility] Address [address] [place] [address] Phone Care Team Providers Care Inside Upholsterer Name Role Phone Keshav Perez MD Primary Care Provider [phone] Dayana Slade Primary Care Pr ovider Rosalinda Goyal MD Unavailable [phone] Juan C Kamara MD Unavailable [phone] Jolene Zhang NP Unavailable [phone] Sara Pradhan MD Unavailable [phone] Encounter Details Date Type Department Care Team (Latest Contact Info) Description 04/07/2017 Orders Only [facility] CONVERSION Scanning, Provider Social History Tobacco Use Types Packs/Day Years Used Date Smoking Tobacco: Never Comments Unknown Sex and Gender Information Value Date Recorded Sex Assigned at Not on file Legal Sex 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 Gender Identity Female 12/06/2021 7:20 AM CDT Sexual Orientation Straight 12/06/2021 7: 20 AM CDT documented as of this encounter Plan of Treatment Not on file documented as of this encounter Procedures Procedure Name Priority Date/Time Associated Diagnosis Comments OBSTETRIC/GYNECOLOGY ULTRASONOGRAPHY REPORT 04/07/2017 4:15 PM CDT documented in this encounter Results * OBSTETRIC/GYNECOLOGY ULTRASONOGRAPHY REPORT (04/07/2017 4:15 PM CDT) Anatomical Region Laterality Modality Ultrasound us Provider Scanning IMG OB US PROCEDURES Final Res ult documented in this encounter Visit Diagnoses Not on filedocumented in this encounter Additional Health Concerns Infection Onset Date Last Indicated Resolved Time COVID: Suspected 08/03/2022 08/03/2022 08/03/2022 11:48 AM ROOF PANEL HANGER COVID: Suspected 02/07/2023 02/07/2023 02/07/2023 10:57 PM CDT COVID: Suspected 03/25/2023 03/25/2023 03/25/2023 4:18 PM CDT documented as of this encounter Care Teams Inside Upholsterer Relationship Specialty Start Date End Date Keshav Perez MD [address] [facility] [address] [place] [address] PCP - General 10/14/16 12/21/19 Dayana Slade PA [address] [place] [address] [address] [place] [address] PCP - General Physician [employer] Draftsman 12/22/19 Rosalinda Goyal MD [address] [place] [address] Neurologist Neurology 05/28/23 Juan C Kamara MD [facility] [address] [facility] [address] [place] [address] Referring Physician Neurology 05/28/23 Jolene Zhang, MANAGER NIGHT [address] DEPT OTOLARYNGOLOGY, [facility] [address] [place] [address] Nurse Practitioner Otolaryngology 05/28/23 Sara Pradhan MD [address] [place] [address] Consulting Physician Endocrinology Diabetes & Metabolism 05/28/23 documented as of this encounter
--- OUTSIDE RECORDS SUMMARY | 2024-10-15 08:14 | XMS_ITS | Clinical Summary ---
Author Organization [facility] Address [address] [place] [address] Care Team Providers Care Kitchen Work Supervisor Name Role Phone Dayana Thomas Primary Care Pr ovider Keshav Perez MD Unavailable [phone] Abdulaziz Alvarez MD Unavailable Lukasz Dean MD Unavailable [phone] Source Comments [facility],non-owned Affiliates and Associated Physician Practices is amultiple site organization consisting of ambulatory clinics and hospital sitesin [place], [place], [place] and [place]. This disclosure is being madepursuant to the Care Everywhere program and may not contain all information available regarding this patient. Last updated 18.[facility] Allergies Active Allergy Reactions Criticality Noted Date Comments Bee Venom Other,Urticaria High 02/21/2022 Ciprofloxacin Vomiting,GI Discomfort Medium 08/15/2021 Fluconazole Anaphylaxis,Urticari a,O ther High 09/17/2023 Latex Rash Medium 06/29/2018 Nitrofurantoin Diarrhea,Other 09/29/2016 Sulfa Drugs Urticaria Medium 04/13/2016 Sulfamethoxazole W-Trimethoprim Unknown 01/08/2020 Sulfasalazine Urticaria Medium 04/13/2016 Medications * Be aware that medications may not be up to date on this document. Alwaysverify current medications with the patient. Estradiol (VAGIFEM VA) Active Ezetimibe (ZETIA PO) Active gabapentin (NEURONTIN) 100 MG capsule Take 1 (one) capsule by mouth 3 times daily Active Cholecalcifero l 1.25 MG (51030 UT) cholecalciferol (vitamin D3) 1,250 mcg (50,000 unit) capsule TAKE 1 CAPSULE BY MOUTH MONTHLY . SAME DAY EVERY MONTH Active Cyanocobalamin (B-12) 1000 MCG B12 1000mcg daily 02/27/20 22 Active Fiber 500 MG CAPS as directed Orally A ctive atorvastatin (Lipitor) 10 MG tablet Take 1 (one) tablet by mouth once daily 10/29/19 24 025 Active Blood Glucose Monitoring Suppl (Accu-Chek Guide Me) w/Device KIT USE TO MONITOR BLOOD SUGAR LEVELS DIRECTED 01/30/20 24 Active calcium carbonate (Caltrate) 600 MG tablet Take 750 mg by mouth once daily Active EPINEPHrine (Epipen) 0.3 MG/0.3ML auto-injector pen Inject 0.3 mL subcutaneously On Hand 03/08/20 24 Active Accu-Chek Christin Plus test strip 03/08/20 24 Active SOFTCLIX LANCETS MISC USE TO TEST 2 TO 3 TIMES A WEEK 01/24/20 24 Active saccharomyces (Florastor Extra Str) 250 MG capsule as directed Orally Active hydroCHLOROthi azide (Microzide) 12.5 MG capsule once daily 1/2 tablet daily Active metFORMIN (Glucophage) 500 MG tablet Take by mouth 3 times daily with meals Takes 1/2 tablet three times a day Active polyethylene glycol 3350 (Miralax) 17 g packet Take by mouth once daily Active levothyroxine (Synthroid) 50 MCG tablet Take 1 (one) tablet by mouth once daily 03/26/20 24 Active Active Problems No known active problems Immunizations Immunization Administration Dates Next Due [employer] SARS-COV-2 COVID-19 VAC 0.5ML 2020,07/27/2020 Covid Pfizer primary monoval ent 12+ yr 0.3mL Purple cap 08/17/2020,07/27/2020 Family History Medical History Relation Name Comments Cancer - Breast Mother Relation Name Status Comments Mother Social History Tobacco Use Types Packs/Day Years Used Date Smoking Tobacco: Never Smokeless Tobacco: Never Tobacco Cessation:Counseling Given: Not Answered PHQ-2 Answer Date Recorded Patient Health Questionnaire-2 Score 0 03/17/2024 Comments No Sex and Gender Information Value Date Recorded Sex Assigned at Not on file Legal Sex Female 3:55 PM CDT Gender Identity Not on file Sexual Orientation Not on file Last Filed Vital Signs Vital Sign Reading Time Taken Comments Blood Pressure 122/72 04/15/2024 10:33 AM SUPERINTENDENT MAINTENANCE Pulse 64 04/15/2024 10:33 AM SUPERINTENDENT MAINTENANCE Temperature 36.8 C (98.2 F) 05/01/2021 9:07 AM SUPERINTENDENT MAINTENANCE Respiratory Rate 16 04/15/2024 10:33 AM SUPERINTENDENT MAINTENANCE Oxygen Saturation 100% 04/15/2024 10:33 AM SUPERINTENDENT MAINTENANCE Inhaled Oxygen Concentration - - Weight 51.9 kg (114 lb 6.4 oz) 04/15/2024 10:33 AM SUPERINTENDENT MAINTENANCE Height 157.5 cm (5' 2 ) 04/15/2024 10:33 AM SUPERINTENDENT MAINTENANCE Body Mass Index 20.92 04/15/2024 10:33 AM SUPERINTENDENT MAINTENANCE Plan of Treatment Health Maintenance Due Date Last Done Comments COLOGUARD (AGES 45-75) - COLON CA SCREENING 1958 COLON MONITORING 1958 COLONOSCOPY - COLON CA SCREENING 1958 CT COLONOGRAPHY - COLON CA SCREENING 1958 Colorectal Cancer Screening 1958 FIT - COLON CA SCREENING 1958 FLEX SIG - COLON CA SCREENING 1958 HIV SCREENING 1973 DTAP/TDAP/TD VACCINES (1 - Tdap) 1977 PAP with HPV 1988 PNEUMOCOCCAL VACCINE 50+ (1 of 1 - PCV) 2008 ZOSTER VACCINE (1 of 2) 2008 COVID-19 VACCINE ( season) 2024 01/17/2022, 08/17/2020, 08/17/2020, Additional history exists DEPRESSION SCREENING 06/09/2024 03/17/2024 MEDICARE AWV CALENDAR YEAR 2024 INFLUENZA VACCINE (Season Ended) 2025 04/26/2022, 03/28/2020, 03/27/2018, Additional history exists MAMMOGRAM 12/22/2025 12/23/2023, 12/07, 11/05/2022, Additional history exists Respiratory Syncytial Virus (RSV) Vaccine Pt: or over 60 yrs (1 - 1-dose 75+ series) 2033 BONE DENSITY TESTING Completed 10/23/2021, 01/12/20 HEPATITIS C SCREENING Completed 03/17/2024 HEPATITIS B VACCINE Aged Out No longe r eligible based on patient's age to complete this topic HIB VACCINE Aged Out No longer eligi ble based on patient's age to complete this topic HPV VACCINE Aged Out No longer eligi ble based on patient's age to complete this topic MENINGOCOCCAL (Group B) VACCINE SHARED DECISION-MAKING Aged Out No longer eligible based on patient's age to complete this topic MENINGOCOCCAL GROUPS A/C/Y/W VACCINE Aged Out No longer eligible based on patient's age to complete this topic Procedures Procedure Name Priority Date/Time Associated Diagnosis Comments HEPATITIS C ANTIBODY Routine 03/17/2024 2:39 PM CDT Other osteoporosis, unspecified pathological fracture presence Sicca, unspecified type Julio's disease from Last 3 Months or Most Recently Relevant to Health Maintenance Results * HEPATITIS C ANTIBODY (03/17/2024 2:39 PM CDT) Hepatitis C Antibody Non Reactive Non Reactive [facility] INSURANCE BILL Comment: HCV antibody alone does not differentiate between previously resolved infection and active infection. Equivocal and Reactive HCV antibody results should be followed up with an HCV RNA test to support the diagnosis of active HCV infection. Blood BLOOD SPECIMEN / Unknown 03/17/2024 2:39 PM CDT 03/17/2024 Narrative [facility] INSURANCE BILL - 03/18/2024 8:18 AM CDT Performed at: - [address] [id number] Artist Scientific: Samm Aldana PhD, Phone: [phone] us Abdulaziz Alvarez MD LAB - CHEMISTRY ORDERABLES Final Result [facility] INSURANCE BILL [address] [place] [address] from Last 3 Months or Most Recently Relevant to Health Maintenance Insurance [facility] * Guarantor: LUCILLE CROCKER Account Type Relation to Patient Date of Phone Billing Address Personal/Family [address] [place] [address] [employer] MED[employer]ARE ADV * Guarantor: LUCILLE CROCKER Account Type Relation to Patient Date of Phone Billing Address Personal/Family [address] [place] [address] * Guarantor: LUCILLE CROCKER Account Type Relation to Patient Date of Phone Billing Address Personal/Family [address] [facility] [place] [address] Care Teams Kitchen Work Supervisor Relationship Specialty Start Date End Date Dayana Thomas PA [address] [place] [address] PCP - General 07/31/22 Keshav Perez MD [address] [place] [address] Internal Medicine 07/31/22 [place] [address] [facility] [address] [id number] Rheumatology 03/17/24 Lukasz Dean MD [address] [place] [address] Gastroenterology 04/15/24
--- OUTSIDE RECORDS SUMMARY | 2024-10-15 08:14 | XMS_ITS | Continuity of Care Document ---
Author Organization [facility] Address [address] [place] [address] Phone Care Team Providers Care Inverform Machine Operator Name Role Phone Del Rosario OD, Adelfo Unavailable Unavailable Procedures Procedure Date Contact Lens Hydrophilic, Spherical Medical Tax Contact Lens Hydrophilic, Spherical Medical Tax Contact Lens Check Eye Exam & Treatment Refraction Eye Exam & Treatment Refraction CL Replacement - Vistakon Disp W/BW Soft [employer] [facility] CL Replacement - Vistakon Disp W/BW Soft SozializeMe No Charge Contact Lens Check CL Replacement - Other Lens SozializeMe Eye Exam & Treatment Refraction CL Replacement - Vistakon Disp W/BW Soft [employer] [facility] Advance Directives Directive Yes / No Effective Date File Name No Information Encounters Encounter Description Practice Location Reason(s) For Visit Diagnoses Date Provider Providers Copied on Encounter [facility], [address], [place], [place], [id number], [place] tel:[phone] [facility] No Information 0-201 0 Del Rosario OD Adelfo. [address] , [address], [place], [address], [place]. tel:[phone] Referring Provider: Adelfo Del Rosario OD A, [address], [place], [place], [facility]. tel:[phone] [facility], [address] [place] [address] [address], [place], [place], [id number], [place] tel:[phone] [facility] No Information Aug-3 0-201 0 Del Rosario OD Adelfo. [address] , [address], [place], [place], [facility], [place]. tel:[phone] [facility], [address] [place] [address] [address], [place], [place], [id number], [place] tel:[phone] [facility] No Information Aug-1 2-201 0 Del Rosario OD Adelfo. [address] , [address], [place], [place], [facility], [place]. tel:[phone] [facility], [address] [place] [address] [address], [place], [place], [id number], [place] tel:[phone] [facility] No Information Vitaly-3 0-201 0 Del Rosario OD Adelfo. [address] , [address], [place], [place], [facility], [place]. tel:[phone] [facility], [address] [place] [address] [address], [place], [place], [id number], [place] tel:[phone] [facility] No Information Vitaly-3 0-200 9 Del Rosario OD Adelfo. [address] , [address], [place], [place], [facility], [place]. tel:[phone] [facility], [address] [place] [address] [address], [place], [place], [id number], [place] tel:[phone] [facility] No Information Dec-1 5-200 8 Del Rosario OD Adelfo. [address] , [address], [place], [place], [facility], [place]. tel:[phone] [facility], [address] [place] [address] [address], [place], [place], [id number], tel:[phone] [facility] No Information 2 1-200 8 Del Rosario OD Adelfo. [address] , [address], [place], [place], [facility], . tel:[phone] [facility], [address], [place], [place], [id number], [place] tel:[phone] [facility] No Information 1200 8 Del Rosario OD Adelfo. [address] [facility] [address] , [address], [place], [place], [facility], [place]. tel:[phone] [facility], [address], [place], [place], [id number], tel:[phone] [facility] No Information 9200 7 Del Rosario OD Adelfo. [address] [facility] [address] , [address], [place], [place], [facility], . tel:[phone] Family History Family Member Type Diagnosis Age At Onset No Information Payers Payer name Insurance type Covered green party ID Authoriza tion(s) No Information Social History Type Description Quantity Date Captured Comments Sex Female Smoking Status No Information Chief Complaint And Reason For Visit No Information Reason For Referral Reason For Referral No Information History Of Present Illness Encounter Date Complaint History Of Prese nt Illness No Information Functional Status Date Functional Assessmen t No Information Instructions Date Instruction Additional Infor mation No Information Assessments Type Assessment Date No Information Patient Care Teams Name Effective Dates (start - stop) Status Members No Information
--- OUTSIDE RECORDS SUMMARY | 2024-10-15 08:14 | XMS_ITS | Data Portability ---
Author Organization [facility] [employer], Main Office Address [address] [place] [address] Assessment No assessment recorded. Plan of Treatment Reminders Order Date Submit Date Provider Last Modified By Organization Details Last Modified Time Details Appointments None recorded. Lab vitamin D, 25-hydroxy , total, serum 2022 023 KENDRICK [facility], [address], [place], [address], 3 09:38:38 hepatic function panel, serum 2022 023 KENDRICK [facility], [address], [place], [address], 3 09:38:38 vitamin B12 + folate, serum or blood 2022 023 [facility], [address], [place], [address], 3 09:38:38 lipid panel, serum 2022 023 [facility], [address], [place], [address], 3 09:38:38 CBC w/ auto diff 2022 023 [facility], [address], [place], [address], 3 15:42:08 BMP, serum or plasma 2022 023 [email or web address] 4 [facility], [address], [place], [address], 3 11:58:53 Referral None recorded. Procedures None recorded. Surgeries None recorded. Imaging MRI, brain, w/wo contrast - Approved [id number] 09/24/2022 - 3 2022 023 meche Umanzor [facility], [address], [place], [address], 3 12:11:09 MRI, orbits, w/wo contrast - Approved [id number] 09/24/2022 - 3 2022 023 SUZAN [facility], [address], [place], [address], 3 16:34:50 Medication Orders None recorded. Patient TargetsNo targets recorded. Patient InstructionsNo instructions recorded. Reason for Referral None Reported. Results Created Date Observation Date Name Description Value Unit Range Abnormal Flag Note LastModifiedBy Organization Detail LastModifiedTime 01/05/20 22 03/31/2020 MRI, cervi dyan spine , w/o contr ast No observ ation record ed. [id number] [facility] [address], [place], [address], 08/07/2022 06:09:13 03/04/20 22 03/02/2022 US, abdom en No observ ation record ed. [id number] [facility] [address], [place], [address], 08/07/2022 06:09:13 03/15/20 22 03/15/2022 CT, abdom en + pelvi s, w/ contr ast No observ ation record ed. [id number] [facility] [address], [place], [address], 08/07/2022 06:09:13 05/17/20 22 05/16/2022 XR, chest , 2 view No observ ation record ed. [id number] [facility] [address], [place], [address], 08/07/2022 06:09:13 09/07/19 23 07/12/2022 upper endos copy proce dure (EGD) (PROC ) No observ ation record ed. BARCODE Not Available 2022 13:52:23 09/21/19 23 08/05/2022 NM, hepat obili kait scan No observ ation record ed. [address], [place], [address], 09/24/2022 15:46:43 09/28/19 23 09/26/2022 MRI, orbit s, w/wo contr ast No observ ation record ed. [email or web address] [facility] [address] [place], [address], 09/30/2022 09:49:50 02/04/20 23 10/31/2022 imagi ng/di agnos tic resul t No observ ation record ed. BARCODE Not Available 2022 17:24:45 02/05/20 23 11/05/2022 MAMMO , scree clive, digit al, bilat eral No observ ation record ed. [address], [address], 02/11/2023 15:42:55 05/07/20 23 02/07/2023 XR, chest , 2 view No observ ation record ed. [address], [place], [address], 05/08/2023 15:04:05 07/02/19 24 06/26/2023 home sleep study No observ ation record ed. [email or web address] Not Available 2023 21:29:36 Result Notes None recorded. Problems Name Problem SNOMED Code Status Onset Date Resolution Date Notes Provider Name and Address Organization Details Recorded Time Benign essential hypertension 1447580 Active 2020 Not Available [facility] 3 06:03:06 Excessive cerumen in ear canal 157390432 Active 2021 Not Available [facility] 3 06:03:06 Right flank pain 086870823 Active 2021 Not Available [facility] 3 06:03:06 Pneumonia 110198552 Active 2021 Not Available [facility] 3 06:03:06 Long-term drug therapy Active 2021 Not Available [facility] 3 06:03:06 Adult health examination Active 2021 Not Available [facility] 3 06:03:06 Left sided abdominal pain 617756175 Active 2021 Not Available [facility] 3 06:03:06 Right upper quadrant pain 719091221 Active 2021 Not Available [facility] 3 06:03:06 Lower urinary tract symptoms 326807377 Active 2021 Not Available [facility] 3 06:03:06 Migraine 44918594 Active 2021 Not Available [facility] 3 06:03:07 Hypothyroidis m 51154427 Active 2019 Not Available [facility] 3 06:03:07 Nausea 164118188 Active 2021 Not Available [facility] 3 06:03:07 Acute urinary tract infection 908588321 Active 2021 Not Available [facility] 3 06:03:07 Pain of hip region 46653649 Active Not Available [facility] 3 06:03:07 Hyperlipidemi a 43690565 Active 2019 Not Available [facility] 3 06:03:07 Osteoporosis 47257185 Active 2019 Not Available [facility] 3 06:03:07 Impaired glucose tolerance 3000630 Active 2021 Not Available [facility] 3 06:03:07 Dilated pupil 56732473 Active 2022 KEVIN Yip [address], [place], [address] , [employer] 3 16:04:44 Headache 60202117 Active 2022 KEVIN Yip [address], [address], [place], [address] , [employer] 3 16:05:00 Hypokalemia 31338163 Active 2022 KEVIN Yip [address], [place], [address] , [employer] 3 16:05:49 Blood chemistry outside reference range 661790187 Active 2022 KEVIN Yip [address], [place], [address] , [employer] 3 16:05:59 Problem Notes None recorded. Procedures Surgical History Date Name Laterality Status Provider Name and Address Organization Details Recorded Time 10/06/19 20 myringotomy and insertion of T tube completed Not Available [facility] 08/07/2022 05:56:31 09/27/19 20 Incision of eardrum completed Not Available [facility] 08/07/2022 05:56:31 06/17/19 20 Most Recent Bone Density completed Not Available [facility] 08/07/2022 05:56:28 05/19/20 19 Date of Last Colonoscopy completed Not Available [facility] 08/07/2022 05:56:27 05/19/20 19 Colonoscopy completed Not Available [facility] 08/08/19 23 05:56:31 Hernia Repair completed Not Available [facility] 08/07/2022 05:56:31 tympanotomy completed Not Available [facility] 08/07/2022 05:56:31 Imaging Results Imaging Date Name Status LastModified by Organization Details LastModified Time 03/02/2022 US, abdomen completed [id number] [facility] [address], [place], [address], 08/07/2022 06:09:13 05/16/2022 XR, chest, 2 view completed [id number]. [id number] [facility] [address], [place], [address], 08/07/2022 06:09:13 03/31/2020 MRI, cervical spine, w/o contrast completed [id number] [facility] [address], [place], [address], 08/07/2022 06:09:13 03/15/2022 CT, abdomen + pelvis, w/ contrast completed [id number] [facility] [address], [place], [address], 08/07/2022 06:09:13 07/12/2022 upper endoscopy procedure (EGD) (PROC) completed BARCODE Information not available 09/06/2022 13:52:23 08/05/2022 NM, hepatobiliary scan completed [address] [address], [place], [address], 09/24/2022 15:46:43 09/26/2022 MRI, orbits, w/wo contrast [facility] [place] [address] [address] [place], [address], 09/30/2022 09:49:50 10/31/2022 imaging/diagnosti c result completed BARCODE Information not available 02/03/2023 17:24:45 11/05/2022 MAMMO, screening, digital, bilateral completed [address], [address], 02/11/2023 15:42:55 02/07/2023 XR, chest, 2 view completed [address], [address], 05/08/2023 15:04:05 06/26/2023 home sleep study completed [email or web address] [employer] not available 07/02/2023 21:29:36 Procedure Notes None recorded. Medical Equipment None Reported. Allergies Allergen ID Allergen Name Allergen Category Reaction Reaction Severity Criticality Documentation Date Start Date Code Code System Note Provider Name and Address Organization Details Recorded Time 59783 Substance with sulfonami de structure and antibacte rial mechanism of action (substanc e) medicatio n Not available Not available Not available 08/07/2022 87421 8003 SNOMED Not Available [facility] 3 06:08:54 16428 Cipro medicatio n vomiting moderate Not available 08/07/20222021 63293 3 RxNorm Not Available [facility] 3 06:08:54 51270 Bactrim medicatio n Not available Not available Not available 08/07/2022 67818 9 RxNorm Not Available [facility] 3 06:08:54 Medications Name Sig Start Date Stop Date Status Note LastModified by Organization Details LastModified Time cyclobenzap rine 10 mg tablet 09/18 completed Not Available Not Available Not Available amoxicillin 500 mg capsule TAKE 1 CAPSULE BY MOUTH EVERY 6 HOURS UNTIL ALL TAKEN 01/07 completed Not Available Not Available Not Available atorvastati n 40 mg tablet 01/02 completed Not Available Not Available Not Available metformin 500 mg tablet TAKE 1 TABLET BY MOUTH THREE TIMES DAILY WITH MEALS active Not Available Not Available No t Available doxycycline hyclate 100 mg capsule Take 1 capsule twice a day by oral route. active Not Available Not Available No t Available Calcium Carbonate (Antacid) 750 mg chewable tablet Take by oral route. 01/07 completed Not Available Not Available Not Available azithromyci n 250 mg tablet TAKE 2 TABLETS BY MOUTH FOR 1 DAY THEN TAKE 1 TABLET BY MOUTH DAILY FOR 4 DAYS 09/17 completed Not Available Not Available Not Available fluconazole 150 mg tablet Take 1 tablet every day by oral route for 1 day. active Not Available Not Available No t Available benzonatate 200 mg capsule 09/17 completed Not Available Not Available Not Available cimetidine 400 mg tablet Take 1 tablet twice a day by oral route as directed for 30 days. active Not Available Not Available No t Available hydrocodone 5 mg-acetamin ophen 325 mg tablet 11/11 completed Not Available Not Available Not Available meloxicam 15 mg tablet active Not Available Not Available Not Available promethazin e 12.5 mg tablet TK 1 T PO Q 6 H PRF NAUSEA OR VOM 07/28 completed Not Available Not Available Not Available ondansetron HCl 4 mg tablet 07/27 completed Not Available Not Available Not Available Medrol (Brennan) 4 mg tablets in a dose pack take as directed starting 03-07-2209/17 completed Not Available Not Available Not Available prednisone 20 mg tablet take 4 tabs po daily x2 days, then 3 tabs po daily x 2 days then 2 tabs po daily x 2 days then 1 tab po daily x 2 days then 1/2 tab po daily x 2 days. active Not Available Not Available No t Available fluorouraci l 5 % topical cream APPLY TOPICALLY TO THE AFFECTED AREA DAILY FOR 10 DAYS 07/05 completed Not Available Not Available Not Available sumatriptan 50 mg tablet active Not Available Not Available Not Available Accu-Chek Softclix Lancets active Not Available Not Available Not Available topiramate 25 mg tablet TAKE 1 TABLET BY MOUTH EVERY NIGHT AT BEDTIME FOR 7 DAYS. INCREASE TO 2 TABLET BY MOUTH EVERY NIGHT AT BEDTIME 02/26 completed Not Available Not Available Not Available meclizine 12.5 mg tablet Take 1 tablet 3 times a day by oral route as needed. active Not Available Not Available No t Available potassium chloride ER 10 mEq tablet,exte nded release 02/15 completed Not Available Not Available Not Available ciprofloxac in 250 mg tablet TK 1 T PO Q 12 H TAT active Not Available Not Available No t Available ciprofloxac in 500 mg tablet TK 1 T PO Q 12 H FOR 1 WK active Not Available Not Available No t Available doxycycline monohydrate 100 mg tablet 09/17 completed Not Available Not Available Not Available tramadol 50 mg tablet TAKE 1 TABLET BY MOUTH EVERY 6 HOURS NEEDED FOR SEVERE PAIN 07/05 completed Not Available Not Available Not Available triamterene 37.5 mg-hydrochl orothiazide 25 mg capsule 02/24 completed Not Available Not Available Not Available amoxicillin 500 mg tablet TAKE 1 TABLET BY MOUTH EVERY 6 HOURS UNTIL ALL TAKEN 01/07 completed Not Available Not Available Not Available Macrobid 100 mg capsule Take 1 capsule every 12 hours by oral route with meals. 02/06 completed Not Available Not Available Not Available ofloxacin 0.3 % ear drops INT 5 DROPS INTO AU BID FOR 10 DAYS 11/08 completed Not Available Not Available Not Available famotidine 20 mg tablet take one tablet by mouth BID active Not Available Not Available No t Available lorazepam 0.5 mg tablet TAKE 1 TO 2 TABLETS BY MOUTH 30 MINUTES BEFORE MRI TESTING 01/07 completed Not Available Not Available Not Available Synthroid 25 mcg tablet Take 2 tablets every day by oral route for 90 days. 09/18 completed Not Available Not Available Not Available meclizine 25 mg tablet Take 1 tablet 3 times a day by oral route as needed. 09/18 completed Not Available Not Available Not Available benzonatate 100 mg capsule 07/27 completed Not Available Not Available Not Available pantoprazol e 40 mg tablet,michael yed release TAKE 1 TABLET BY MOUTH EVERY MORNING 09/18 completed Not Available Not Available Not Available neomycin-po lymyxin-dex ameth 3.5 mg/mL-10,00 0 unit/mL-0.1 % eye drops SHAKE LIQUID AND INSTILL 1 DROP IN LEFT EYE FOUR TIMES DAILY DIRECTED 01/03 completed Not Available Not Available Not Available lidocaine 5 % topical patch APPLY 1 PATCH BY TOPICAL ROUTE ONCE DAILY (MAY WEAR UP TO 12HOURS.) active Not Available Not Available No t Available promethazin e 25 mg tablet Take 1 tablet every 4 hours by oral route. 09/18 completed Not Available Not Available Not Available Synthroid 50 mcg tablet Take 1 tablet every day by oral route for 90 days. active Not Available Not Available No t Available docusate sodium 100 mg capsule TAKE ONE CAPSULE BY MOUTH TWICE DAILY 09/18 completed Not Available Not Available Not Available gabapentin 300 mg capsule TAKE ONE CAPSULE BY MOUTH DAILY 01/03 completed Not Available Not Available Not Available lisinopril 5 mg tablet 11/11 completed Not Available Not Available Not Available hydrochloro thiazide 25 mg tablet TAKE 1 AND 1/2 TABLETS DAILY. BUT CAN TAKE UP TO 2 TABLETS DAILY NEEDED ONLY active Not Available Not Available No t Available gabapentin 100 mg capsule TAKE 1 CAPSULE BY MOUTH EVERY DAY active Not Available Not Available No t Available dexamethaso ne sodium phosphate 4 mg/mL injection solution 09/18 completed Not Available Not Available Not Available cefuroxime axetil 500 mg tablet TK 1 T PO Q 12 H 09/17 completed Not Available Not Available Not Available levofloxaci n 500 mg tablet active Not Available Not Available Not Available estradiol 0.01% (0.1 mg/gram) vaginal cream INSERT 1 GRAM VAGINALLY 3 TIMES A WEEK 01/07 completed Not Available Not Available Not Available hydrocodone 10 mg-chlorphe niramine 8 mg/5 mL oral susp extend.rel 12hr Take 5 mL every day by oral route at bedtime. active Not Available Not Available No t Available albuterol sulfate HFA 90 mcg/actuati on aerosol inhaler INHALE 2 PUFFS BY MOUTH EVERY 6 HOURS NEEDED FOR WHEEZING OR SHORTNESS OF BREATH 09/18 completed Not Available Not Available Not Available Vitamin D2 1,250 mcg (50,000 unit) capsule 02/15 completed Not Available Not Available Not Available ondansetron 4 mg disintegrat ing tablet DISSOLVE 1 TABLET ON THE TONGUE EVERY 6 HOURS NEEDED FOR NAUSEA OR VOMITING active Not Available Not Available No t Available cefdinir 300 mg capsule TK 1 C PO Q 12 H active Not Available Not Available No t Available fluticasone propionate 50 mcg/actuati on nasal spray,suspe nsion SHAKE LIQUID AND USE 2 SPRAYS IN EACH NOSTRIL EVERY DAY 07/05 completed Not Available Not Available Not Available metformin ER 500 mg tablet,exte nded release 24 hr SEE ATTACHED TITRATING DIRECTION S 01/07 completed Not Available Not Available Not Available diazepam 5 mg tablet active Not Available Not Available No t Available amoxicillin 875 mg-potassiu m clavulanate 125 mg tablet TAKE 1 TABLET BY MOUTH TWICE DAILY FOR 10 DAYS 09/17 completed Not Available Not Available Not Available Tums 300 mg (as calcium carbonate 750 mg) chewable tablet TAKE 1 TABLET BY MOUTH DAILY 02/26 completed Not Available Not Available Not Available ezetimibe 10 mg tablet TAKE 1 TABLET BY MOUTH EVERY DAY IN THE EVENING 2022 active Not Available Not Available Not Avai lable Restasis 0.05 % eye drops in a dropperette 01/02 completed Not Available Not Available Not Available ciprofloxac in 0.3 %-dexametha sone 0.1 % ear drops,suspe nsion SHAKE LIQUID AND INSTILL 4 DROPS TO AFFECTED EAR TWICE DAILY FOR 10 DAYS 02/25 completed Not Available Not Available Not Available rosuvastati n 5 mg tablet 02/24 completed Not Available Not Available Not Available alfuzosin ER 10 mg tablet,exte nded release 24 hr TAKE 1 TABLET BY MOUTH DAILY 01/03 completed Not Available Not Available Not Available Fiber Therapy (methylcell ulose) 500 mg tablet Take 4 tablets every day by oral route for 14 days. active Not Available Not Available No t Available Vesicare 5 mg tablet 01/02 completed Not Available Not Available Not Available calcium carbonate 01/03 completed Not Available Not Available Not Available fiber 01/03 completed Not Available Not Available Not Available hydrochloro thiazide 12.5 mg tablet 02/15 completed Not Available Not Available Not Available cholecalcif cheyenne (vitamin D3) 1,250 mcg (50,000 unit) capsule TAKE 1 CAPSULE BY MOUTH MONTHLY . SAME DAY EVERY MONTH active Not Available Not Available No t Available Vagifem 10 mcg vaginal tablet 01/02 completed Not Available Not Available Not Available B12 1000mcg daily 01/07 completed Not Available Not Available Not Available Probiotic 09/18 completed Not Available Not Available Not Available Suprep Bowel Prep Kit 17.5 gram-3.13 gram-1.6 gram oral solution 07/27 completed Not Available Not Available Not Available Accu-Chek Christin Plus test strips active Not Available Not Available Not Available Dialyvite Vitamin D3 Max 1,250 mcg (50,000 unit) tablet TK 1 T PO Q MONTH 06/15 completed Not Available Not Available Not Available Accu-Chek Christin Plus Meter active Not Available Not Available Not Available OneTouch Delica Lancets 30 gauge active Not Available Not Available Not Available Vitamin C 125 mg chewable tablet Take by oral route. 2021 active Not Available Not Available Not Avai lable Xiidra 5 % eye drops in a dropperette 02/24 completed Not Available Not Available Not Available OneTouch Ultra Blue Test Strip active Not Available Not Available N ot Available Afluria Quad (PF) 60 mcg (15 mcg x 4)/0.5 mL IM syringe ADM 0.5ML IM UTD 11/11 completed Not Available Not Available Not Available Imvexxy Maintenance Pack 10 mcg vaginal insert 02/24 completed Not Available Not Available Not Available ID NOW COVID-19 Test Kit TEST DIRECTED TODAY 07/05 completed Not Available Not Available Not Available Flucelvax Quad (PF) 60 mcg (15 mcg x 4)/0.5 mL IM syringe ADM 0.5ML IM UTD 06/15 completed Not Available Not Available Not Available Vitals Date Recorded Body mass index (BMI) Body height Oxygen saturation Oxygen saturation in Arterial blood by Pulse oximetry Heart rate Respiratory rate Body temperature Body weight Systolic blood pressure Diastolic blood pressure Provider Name and Address Organization Details Last Updated DateTime 2 21.3 kg/m2 160.02 cm 98 % 98 % 88 /min 16 /min 98.1 [degF] 17519.0 8 g 118 mm[Hg] 70 mm[Hg] Not Available [facility] 3 06:00:42 Date Recorded Body mass index (BMI) Body height Oxygen saturation Oxygen saturation in Arterial blood by Pulse oximetry Heart rate Respiratory rate Body temperature Body weight Systolic blood pressure Diastolic blood pressure Provider Name and Address Organization Details Last Updated DateTime 2 21.3 kg/m2 160.02 cm 97 % 97 % 94 /min 16 /min 97.3 [degF] 52652.0 8 g 128 mm[Hg] 82 mm[Hg] Not Available [facility] 3 06:00:43 Date Recorded Body height Oxygen saturation Oxygen saturation in Arterial blood by Pulse oximetry Heart rate Respiratory rate Body temperature Systolic blood pressure Diastolic blood pressure Provider Name and Address Organization Details Last Updated DateTime 2 160.02 cm 98 % 98 % 85 /min 16 /min 97.5 [degF] 140 mm[Hg] 80 mm[Hg] Not Available [facility] 3 06:00:43 Date Recorded Body height Body temperature Body mass index (BMI) Body weight Respiratory rate Oxygen saturation Oxygen saturation in Arterial blood by Pulse oximetry Heart rate Systolic blood pressure Diastolic blood pressure Provider Name and Address Organization Details Last Updated DateTime 3 160.02 cm 97.8 [degF] 22 kg/m2 23641.4 5 g 16 /min 98 % 98 % 95 /min 120 mm[Hg] 78 mm[Hg] JUAN Roberson [facility] [employer] [facility] 3 15:32:45 Date Recorded Body height Body mass index (BMI) Body weight Respiratory rate Oxygen saturation Oxygen saturation in Arterial blood by Pulse oximetry Heart rate Systolic blood pressure Diastolic blood pressure Provider Name and Address Organization Details Last Updated DateTime 3 160.02 cm 21.5 kg/m2 41625.4 7 g 16 /min 98 % 98 % 86 /min 122 mm[Hg] 78 mm[Hg] JUAN Roberson [facility] [employer] [facility] 3 14:07:37 Social History Question Answer Notes LastModified by [employer] ion Details LastModified Time Tobacco Smoking Status Never Smoker Not Available [facility] 08/07/2022 05:55:14 What Is Your Level Of Alcohol Consumption? Occasional [id number] Information not available 08/07/2022 What Is Your Level Of Caffeine Consumption? Moderate [id number] Information not available 08/07/2022 How Much Tobacco Do You Chew? None [id number] Information not available 08/07/2022 In The 14 Days Before Symptom Onset, Have You Had Close Contact With A Laboratory-confir med COVID-19 While That Case Was Ill? No [id number] Information not available 08/07/2022 In The 14 Days Before Symptom Onset, Have You Had Close Contact With A Person Who Is Under Investigation For COVID-19 While That Person Was Ill? No [id number] Information not available 08/07/2022 What Type Of Diet Are You Following? REGULAR [id number] Information not available 08/07/2022 Which Illicit Or Recreational Drugs Have You Used? None [id number] Information not available 08/07/2022 Do You Or Have You Ever Used E-cigarettes Or Vape? Never Used Electronic Cigarettes [id number] Information not available 08/07/2022 Have There Been Any Changes To Your Family Or Social Situation? No [id number] Information not available 08/07/2022 Do You Use Insect Repellent Routinely? No [id number] Information not available 08/07/2022 What Is Your Relationship Status? [id number] Information not available 08/07/2022 Do You Use Your Seat Belt Or Car Seat Routinely? Yes [id number] Information not available 08/07/2022 Do You Have Smoke And Carbon Monoxide Detectors In Your Home? Yes [id number] Information not available 08/07/2022 Do You Or Have You Ever Used Smokeless Tobacco? Never Used Smokeless Tobacco [id number] Information not available 08/07/2022 How Much Tobacco Do You Smoke? No [id number].[id number] Information not available 08/07/2022 Do You Use Any Illicit Or Recreational Drugs? No [id number].[id number] Information not available 08/07/2022 Do You Use Sunscreen Routinely? No [id number].[id number] Information not available 08/07/2022 Have You Recently Traveled Abroad? No [id number] Information not available 08/07/2022 Do You Have Any Dietary Restrictions? No [id number] Information not available 08/07/2022 Do You Or Have You Ever Used Any Other Forms Of Tobacco Or Nicotine? No [id number] Information not available 08/07/2022 Sex: Unknown Functional Status Question Answer Note LastModified by Organizat ion Details LastModified Time What is your exercise level? Moderate [id number] Information not available 08/07/2022 Mental Status None recorded. Family History Relationship Description Onset Age of this Age Resolved Age Notes LastModified by Organization Details LastModified Time Mother Malignant tumor of breast [id number] Not available 08/07/2022 05:56:36 Father Malignant neoplasm of brain [id number] Not available 08/07/2022 05:56:36 Medical History Condition Response DIABETES, TYPE Y HEADACHES/MIGRAINES Y ANXIETY DISORDER Y HYPERTENSION Y HIGH CHOLESTEROL / HYPERLIPIDEMIA Y Gynecological History Statement/Question Response Abnormal Pap Y Date of Last Pap 04/09/2018 Date of Last Mammogram 10/03/2020 Current Control Method Menopause Date of Last Colonoscopy 05/19/2019 Most Recent Bone Density 06/17/2019 Sexually Active? Y Obstetrics History GPAL:G 2 P 0 0 0 1 Type Value Living 1 Total 2 Immunizations Vaccine Type Date Status Note Provider Nam e and Address Organization Details Recorded Time COVID-19 vaccine, vector-nr, rS-ChAdOx1, PF, 0.5 mL 08/17/2020 completed Not Available [facility] 3 06:08:45 COVID-19 vaccine, vector-nr, rS-ChAdOx1, PF, 0.5 mL 07/27/2020 completed Not Available [facility] 3 06:08:45 Past Encounters Encounter ID Performer Location Encounter Start Date Encounter Closed Date Diagnosis/Indication Diagnosis SNOMED-CT Code Diagnosis ICD10 Code Diagnosis Note [id number] KEVIN Yip [facility] [address] [place] [address] 01/02/2021 00:00:00 01/02/2021 23:41:08 [id number] [facility] [address] [place] [address] 02/08/2021 00:00:00 03/08/2021 15:34:12 [id number] KEVIN Yip [facility] [address] [place] [address] 02/16/2021 00:00:00 03/08/2021 00:34:29 [id number] KEVIN Yip [facility] [address] [place] [address] 07/05/2021 00:00:00 07/08/2021 19:50:48 [id number] Rosalino Paul MD [facility] [address] [place] [address] 01/03/2022 00:00:00 01/03/2022 22:18:40 [id number] KEVIN Yip [facility] [address] [place] [address] 02/26/2022 00:00:00 03/06/2022 18:21:40 [id number] KEVIN Yip [facility] [place] [address] [place] [address] 03/06/2022 00:00:00 03/06/2022 14:21:08 [id number] KEVIN Yip [facility] [place] [address] [place] [address] 09/18/2022 15:24:54 09/18/2022 16:13:41 Dilated pupil 63282736 H57.04 refer for MRI orbits w/wo contrast with new onset of left pupil larger than right. Headache 01775842 R51.9 headaches are increased more occipital location. check MRI brain w/wo contrast. Hypokalemia 87599229 E87 .6 noted on ER labs. check bmp repeat Blood chem istry outside reference range 089736841 R79.9 check CBC again. [id number] KEVIN Yip [facility] [place] [address], [address] [place] [address] 01/07/2023 13:57:29 01/07/2023 14:36:51 Adult health examination 519475171 Z00.01 well exam completed Benign ess ential hypertension 3534340 I10 stable on HCTZ therapy Hyperlipidemia 62036083 E78.5 stable on zetia 10mg daily. due for fasting lipids Hypothyroidism 04526073 E03.9 on synthroid 50mcg daily. updated labs with Endocrine. Impaired g lucose tolerance 6535721 R73.03 stable on metformin therapy for IGT. Osteoporosis 05237576 M8 1.0 on vitamin D and calcium therapy. due for Vit D lab Long-term drug therapy 538494241 Z79.899 LFT and B12 ,folate labs are due Health Concerns Section Related Observation LastModified by Organization Detai ls LastModified Time None Recorded Concern Status LastModified by Organization Details LastModified Time None Recorded Advance Directives Directive None Recorded Payers Encounter Date Sequence Insurance Name Policy Number Policy Galindo Covered Member ID Galindo Member ID Guarantor Name 09/18/2022 1 [employer] (POS) [id number] Inga Andre [id number] Inga Jes 01/07/2023 1 [employer] (POS) [id number] Inga Samson Jes [id number] Inga Jes Notes Date Note Type Note Provider Name and Address Organization Details Recorded Time 01/04/20 text/ht ml HyperlipidemiaReported bypatient.Duration:chronic Control:usually well controlled Compliance:compliant; compliant with diet; exercises Complications:no coronary artery disease; no peripheral artery disease; no cardiovascular diseaseHypertensionReported bypatient.Duration:has noted for years Onset/Timing:better Alleviating Factors:medication Self Care:not under emotional stress Associated Symptoms:no shortness of breath; no palpitations; no decline in exercise capacity; no snoring;fatigueHypothyroidismRep orted bypatient.Quality:not changing Duration:constant Onset/Timing:still present Context/Risk:normal thyroid levels; no history of head or neck radiation during childhood; no history of thyroid disease; no history of hyperthyroidism; no excess iron exposure;history of hypothyroidism;female gender Modifying Factors:medication Exercisegets exercise Associated Symptoms:no cold intolerance; no heat intolerance; no weight loss; no weight gain; no double vision; no dry eyes; no hoarseness; no difficulty swallowing; no neck masses; no deepening of the voice; no fast heart rate; no increased blood pressure; no palpitations; no chest pain; no chest tightess or pressure; no constipation; no diarrhea; no vomiting; no decreased appetite; no loose stools; no irregular menstrual periods; no excessive sweating; no joint pain; no numbness; no tingling of the hands or feet; no dry skin; no tremor; no nervousness; no anxiety; no depression; no fatigue; no sleep difficulties; no skin changes; no hair changes Not Available [facility] [employer] [facility] 01/03/2022 22:18:40 02/27/20 text/ht ml Abdominal PainReported bypatient.Location:R side radiating to back Quality:stabbing Severity:pain level /10 Duration:constant; started: (02/18/22) Onset/Timing:worse Aggravating Factors:nothing makes it worse Alleviating Factors:moving bowels Associated Symptoms:no fever; no chills; no blood in the urine; no heartburn; no shortness of breath; no nausea; no vomiting; no constipation; normal stool; no blood in stool; normal appetite;diarrhea Other:denies possible Pain Radiation:through the back Not Available [facility] 03/06/2022 18:21:40 03/06/20 22 text/ht ml Abdominal PainReported bypatient.Location:RUQ; R side radiating to back Quality:aching;dull;stabbing Severity:pain level 6/10 (at its worse 02/16) Duration:constant; started: (02/18/22) Onset/Timing:not getting worse or better Aggravating Factors:nothing makes it worse Alleviating Factors:moving bowels Associated Symptoms:no fever; no chills; no blood in the urine; no heartburn; no shortness of breath; no nausea; no vomiting; no diarrhea; no constipation; normal stool; no blood in stool; normal appetite; she noticed a bulge right where the pain is. Other:denies possible Pain Radiation:through the back Previous Tests, Treatment and/or Diagnostic Procedures:prescription medication (2 rounds of abx); u/s abd Not Available [facility] 03/06/2022 14:21:08 09/19/19 23 text/ht ml Generic HPI TemplateReported bypatient.Notes:Pt is here for f/u from e/r on 09/14/22 for 1 pupil being dilated. They gave her a referral to neurology but couldn't do a MRI w/it being a holiday weekend. Records are in the room w/her. She says her pupil is still dilated especially when she wakes up in the morning. it occurred all the sudden no injury or acute symptoms with the dilated pupil. she feels fine otherwise. she does notice her headaches are increasing in frequency in the occipital region. KEVIN Yip [address] [facility], [facility] [address], [place], [address], [facility] 09/20/2022 11:04:13 01/08/20 23 text/ht ml HyperlipidemiaReported bypatient.Duration:chronic Control:usually well controlled Compliance:compliant; compliant with diet; exercises Complications:no coronary artery disease; no peripheral artery disease; no cardiovascular disease Risk Factors:hypertensionHypertension Reported bypatient.Duration:has noted for years Onset/Timing:better Alleviating Factors:medication Associated Symptoms:no shortness of breath; no fatigue; no palpitations; no decline in exercise capacity; no snoringHypothyroidismReported bypatient.Quality:not changing Duration:constant Onset/Timing:still present Context/Risk:normal thyroid levels; no history of head or neck radiation during childhood; no history of thyroid disease; no history of hypothyroidism; no history of hyperthyroidism; no excess iron exposure Modifying Factors:medication Exercisegets exercise Associated Symptoms:no cold intolerance; no heat intolerance; no weight loss; no weight gain; no double vision; no dry eyes; no hoarseness; no difficulty swallowing; no neck masses; no deepening of the voice; no fast heart rate; no increased blood pressure; no palpitations; no chest pain; no chest tightess or pressure; no constipation; no diarrhea; no vomiting; no decreased appetite; no loose stools; no irregular menstrual periods; no excessive sweating; no joint pain; no numbness; no tingling of the hands or feet; no dry skin; no tremor; no nervousness; no anxiety; no depression; no fatigue; no sleep difficulties; no skin changes; no hair changes Wellness KEVIN Yip [address] [facility], [address], [address], [facility] 02/02/2023 22:56:50 OBGyn Episode No OBEpisode recorded.
--- OUTSIDE RECORDS SUMMARY | 2024-10-15 08:14 | XMS_ITS | Clinical Summary ---
Author Organization [facility] Address [address] [place] [address] Care Team Providers Care Television Newscast Director Name Role Phone Dayana Slade Primary Care Provider [phone] Allergies Active Allergy Reactions Criticality Noted Date Comments Bee Venom Hives,Other (see comment) Medium 02/21/2022 Ciprofloxacin Vomiting Medium 08/15/2021 Latex Rash Medium 03/26/2017 Nitrofurantoin Diarrhea Low 09/29/2016 Sulfa Antibiotics Hives Medium 04/13/2016 Sulfamethoxazole-Trimethoprim Unknown 2019 Sulfasalazine Hives Medium 04/13/2016 Medications metFORMIN ER (GLUCOPHAGE-XR) 500 MG 24 hr tablet SEE ATTACHED TITRATING DIRECTIONS 3 Active SYNTHROID 50 MCG tablet 3 Active hydroCHLOROthia zide (HYDRODIURIL) 25 MG tablet Take 1 tablet (25 mg total) by mouth daily. Active ezetimibe (ZETIA) 10 MG tablet Take 1 tablet (10 mg total) by mouth every evening. Active gabapentin (NEURONTIN) 100 MG capsule Take 1 capsule (100 mg total) by mouth daily. Active estradiol (ESTRACE) 0.1 MG/GM vaginal cream Place 1 g vaginally. 3 Active calcium carbonate (OS-CATY) 1250 (500 Ca) MG tablet Take 1 tablet (1,250 mg total) by mouth daily. Active Active Problems Problem Noted Date Diagnosed Date Murmur 05/13/2023 Abnormal blood chemistry level 09/18/2022 Headache 09/18/2022 Hypokalemia 09/18/2022 Dilated pupil 09/18/2022 Nausea 05/16/2022 Migraine 07/05/2021 Benign essential hypertension 06/14/2020 Osteoporosis 08/25/2019 Inguinal hernia of right akua e without obstruction or gangrene 11/18/2017 Overview (05/13/2023): Added automatically from request for surgery [id number] High blood cholesterol 11/12/2017 Hypothyroidism 11/12/2017 Pre-diabetes 11/12/2017 Family History Medical History Relation Comments Brain cancer Father Relation Status Comments Father Social History Tobacco Use Types Packs/Day Years Used Date Smoking Tobacco: Never Smokeless Tobacco: Never Tobacco Cessation:Counseling Given: No Alcohol Use Standard Drinks/Week Comments Not Currently 0 (1 standard drink = 0.6 oz pur e alcohol) PHQ-2 Answer Date Recorded Patient Health Questionnaire-2 Score 0 05/13/2023 Comments Unknown Sex and Gender Information Value Date Recorded Sex Assigned at Not on file Legal Sex Female 7:13 PM CDT Gender Identity Not on file Sexual Orientation Not on file Last Filed Vital Signs Vital Sign Reading Time Taken Comments Blood Pressure 121/75 10/27/2023 9:29 AM CDT Pulse 61 10/27/2023 9:29 AM CDT Temperature 36.3 C (97.4 F) 10/27/2023 9:29 AM CDT Respiratory Rate - - Oxygen Saturation 100% 10/27/2023 9:29 AM CDT Inhaled Oxygen Concentration - - Weight 52.6 kg (116 lb) 10/27/2023 9:29 AM CDT Height 157.5 cm (5' 2 ) 10/27/2023 9:29 AM CDT Body Mass Index 21.22 10/27/2023 9:29 AM CDT Plan of Treatment Health Maintenance Due Date Last Done Comments Colorectal Cancer Screening Colonoscopy (10 Years) 1958 Hepatitis C 1976 DTaP, Tdap and Td Vaccines (1 - Tdap) 1977 Mammogram Screening 1998 Zoster Vaccines (1 of 2) 2008 Pneumococcal Vaccine: 50+ Years (2 of 2 - PCV) 04/27/2013 04/27/2012 Dexa Scan (General) 12/14/2023 COVID-19 Vaccine ( season) 2024 04/26/2022, 01/17/2022, 03/21/2021, Additional history exists PHQ-2 (Physician [place]) 06/09/2024 05/13/2023 RSV Immunization or 60+ Years (1 - 1-dose 75+ series) 2033 Meningococcal B Vaccine Aged Out No l onger eligible based on patient's age to complete this topic Meningococcal Vaccine Aged Out No sheri lea eligible based on patient's age to complete this topic RSV Immunizations Under 20 Months Aged Out No longer eligible based on patient's age to complete [place] [address] [employer] Care Teams Television Newscast Director Relationship Specialty Start Date End Date Dayana Slade PA PCP - General PHYSICIAN TABLEAU REPORT DEVELOPER 10/02/22
[2024-10-15 08:22] LABS: Glucose Point of Care 89 mg/dl (65-105)
--- NOTE | 2024-10-15 08:54 | ED.GENADULT ---
HPI - General Adult General Chief complaint: Recheck/Abnormal Lab/Rx Stated complaint: HTN, tachycardia, palpitations Time Seen by Provider: 10/15/24 08:54 Source: patient Mode of arrival: ambulatory Limitations: no limitations History of Present Illness HPI narrative: Patient accidentally took her morning medication twice this morning which include hydrochlorothiazide 12.5 mg, metformin 250 mg and Synthroid 50 mcg. Patient report got panicky, started feeling palpitation and lightheadedness which resolved on arrival to the ED. currently patient denies any fever, chills, nausea, vomiting, chest pain, shortness of breath, lightheadedness or headache or dizziness. Related Data Home Medications ?Medication ?Instructions ?Recorded ?Confirmed ?Last Taken ?Type ezetimibe 10 mg tablet 10 mg PO DAILY 02/04/21 08/16/24 12/15/23 20:00 History gabapentin 100 mg capsule 100 mg PO DAILY 04/02/21 08/16/24 12/15/23 20:00 History calcium carbonate (Antacid 200 mg PO DAILY 12/04/23 08/16/24 12/15/23 17:30 History (calcium carbonate)) hydrochlorothiazide 12.5 mg tablet 6.25 mg PO DAILY 12/04/23 08/16/24 12/15/23 07:00 History Allergies Allergy/AdvReac Type Severity Reaction Status Date / Time fluconazole (From Diflucan) Allergy Severe Anaphylaxis Verified 10/15/24 08:25 bee venom protein (honey bee) Allergy Intermediate hives Verified 10/15/24 08:25 Sulfa (Sulfonamide Allergy Intermediate HIVES Verified 10/15/24 08:25 Antibiotics) ciprofloxacin Allergy Mild nausea, Verified 08/16/24 13:19 trouble swallowing latex Allergy Mild Itching Verified 10/15/24 08:25 nitrofurantoin AdvReac Intermediate Nausea and Verified 10/15/24 08:25 Vomiting Review of Systems Review of Systems: All systems reviewed & are unremarkable except as noted in HPI and below PMFSH Past Medical History Medical History Retained myringotomy tube in right ear Diabetes type 2, controlled GERD (gastroesophageal reflux disease) Chronic constipation Liver cyst Colon cancer screening Early satiety Right flank pain RUQ abdominal pain Vitamin D deficiency, unspecified Hypothyroidism Hyperglycemia Mild scoliosis Hyperlipidemia Hypertension Surgical History Surgical History S/P tympanotomy with insertion of tube History of biopsy History of hernia repair Family History Family History Father Family history of mental disorder Hypertension Mother Hypertension Family history of malignant neoplasm of breast in first degree relative Sibling Family history of thyroid disease Family history of malignant neoplasm of breast in first degree relative Other Family history of malignant neoplasm Social History Social History Smoking status: Never smoker Second hand tobacco smoke exposure: No Alcohol intake: current Alcohol use details: 1 per week Substance use: never Substance use type: does not use Do You Feel Safe in your Home?: Yes Lack of Transportation: No Lack of Food: Never True Current Housing: I Have Housing Concerned About Future Housing: No Difficulty Paying Gas/Electric Bills: No Difficulty Paying for Meds: No Currently Unemployed: No Education: Master's Degree or Higher Difficulty w/ Childcare or Family Care: No Living arrangements: with family Occupation/Education: occupation 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 Musculoskeletal: Normal range of motion, nontender back Neurologic: Alert and oriented ?3, BARREL MARKER is normal as tested, no gross motor deficit Course Vital Signs Vital signs: Vital Signs Temperature 36.6 C 10/15/24 08:12 Pulse Rate 68 10/15/24 08:12 Respiratory Rate 20 10/15/24 08:12 Blood Pressure 153/83 H 10/15/24 08:12 Pulse Oximetry 100 10/15/24 08:12 Oxygen Delivery Room Air 10/15/24 08:12 Temperature 36.6 C 10/15/24 08:12 Pulse Rate 68 10/15/24 08:12 Respiratory Rate 20 10/15/24 08:12 Blood Pressure 153/83 H 10/15/24 08:12 Pulse Oximetry 100 10/15/24 08:12 Oxygen Delivery Room Air 10/15/24 08:12 Medical Decision Making MDM Narrative Medical decision making narrative: Patient accidentally take her morning medication twice this morning. Patient was assured that this medication will not make any significant difference in her vital signs. Patient felt much better, and was asymptomatic at the time of discharge. There is no imaging or labs are required at this time. Patient will be discharged home and to be careful with her medication in the future. Vital Signs Vital Signs: Vital Signs Temperature 36.6 C 10/15/24 08:12 Pulse Rate 68 10/15/24 08:12 Respiratory Rate 20 10/15/24 08:12 Blood Pressure 153/83 H 10/15/24 08:12 Pulse Oximetry 100 10/15/24 08:12 Oxygen Delivery Room Air 10/15/24 08:12 Temperature 36.6 C 10/15/24 08:12 Pulse Rate 68 10/15/24 08:12 Respiratory Rate 20 10/15/24 08:12 Blood Pressure 153/83 H 10/15/24 08:12 Pulse Oximetry 100 10/15/24 08:12 Oxygen Delivery Room Air 10/15/24 08:12 Lab Data Labs: Lab Results 10/15/24 Range/Units 08:19 POC Capillary Glucose 89 (65-105) mg/dl Critical Care Time Critical Care Time Critical Care Time: No Discharge Plan Discharge Clinical Impression: Accidental drug overdose Patient Disposition: Home Condition: Stable Instructions: Normal Exam (ED) Additional Instructions: Return if symptoms are worsening , call your family physician for appointment, take Tylenol as as needed for aches and pain, continue home medications. Patient Language: Irish Prescriptions: No Action doxycycline hyclate 100 mg capsule 100 mg PO BID 7 Days Qty: 14 0RF triamcinolone acetonide 0.1 % cream 1 applic topical BID PRN (Reason: insect bite) Qty: 15 0RF ezetimibe 10 mg tablet 10 mg PO DAILY gabapentin 100 mg capsule 100 mg PO DAILY (DME) blood-glucose meter Misc See Rx Instructions .Route Qty: 1 0RF Rx Instructions: As directed to monitor blood sugars (DME) Accu-Chek Christin Plus test strp Strip See Rx Instructions .ROUTE .COMPLEX Qty: 100 1RF Dose Instruction: CHECK 3 TO 4 TIMES A WEEK Rx Instructions: check once daily cholecalciferol (vitamin D3) 1,250 mcg (50,000 unit) capsule See Rx Instructions .ROUTE .COMPLEX Qty: 3 1RF Dose Instruction: TAKE 1 CAPSULE BY MOUTH MONTHLY. SAME DAY EVERY MONTH Rx Instructions: TAKE 1 CAPSULE BY MOUTH MONTHLY. SAME DAY EVERY MONTH (DME) lancets [Accu-Chek Softclix Lancets] Misc See Rx Instructions .ROUTE .COMPLEX Qty: 100 1RF Dose Instruction: USE AND DISCARD 1 [facility] B[facility]OD SUGAR 2 TO 3 TIMES A WEEK. Rx Instructions: check once daily levothyroxine [Synthroid] 50 mcg tablet 50 mcg PO DAILY Qty: 90 3RF metformin 500 mg tablet 250 mg PO TIDWMEAL Qty: 135 3RF hydrochlorothiazide 12.5 mg tablet 6.25 mg PO DAILY calcium carbonate [Antacid (calcium carbonate)] 200 mg calcium (500 mg) Tablet,Chewable 200 mg PO DAILY Follow-up/Referrals: Yany,MARYURI Anne [Primary Care Provider] -
[2024-10-15 09:07] VITALS: BP 157/70; PULSE 63; RESP 18; O2SAT 100
--- OUTSIDE RECORDS SUMMARY | 2024-10-15 09:33 | XMS_ITS | Clinical Summary ---
Author Organization [facility] Address [address] [place] [address] Care Team Providers Care Sales Department Supervisor Name Role Phone Dayana Slade Primary Care Provider [phone] Allergies Active Allergy Reactions Criticality Noted Date [...] (05/13/2023): Added automatically from request for surgery [id number] High blood cholesterol 11/12/2017 Hypothyroidism 11/12/2017 Pre-diabetes [...] 01/17/2022, 03/21/2021, Additional history exists PHQ-2 (Physician [place]) 06/09/2024 05/13/2023 RSV Immunization or 60+ Years [...] age to complete this [place] [address] [employer] Care Teams Sales Department Supervisor Relationship Specialty Start Date End Date Dayana Slade PA PCP - General PHYSICIAN STREETCAR MOTORMAN 10/02/22
--- OUTSIDE RECORDS SUMMARY | 2024-10-15 09:33 | XMS_ITS | Clinical Summary ---
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 Resolved Problems Problem Noted Date Diagnosed Date Resolved Date Post-menopausal bleeding 10/24/2016 Encounters Date Type Department Care Team Description 09/30/2024 2:00 PM CDT Office Visit [facility]) - [facility] ENT [address] [facility] Advanced [facility] 11th [place] [address] [place] [address] Jolene Zhang, LASHAE Dysfunction of right eustachian tube (Primary Dx); Sensorineural hearing loss (SNHL) of both ears from Last 3 Months Immunizations Immunization Administration Dates Next Due HouseFix Sars-CoV-2 Vaccination 08/17/2020, Influenza, Quadrivalent, Coretta l Culture-based MDCK, Preservative Free, Antibiotic Free, Intramuscular 03/28/2020 Influenza, Quadrivalent, Spl it, Preservative Free, Intramuscular 04/26/2022,03/27/2018 Influenza, Trivalent, IM (MDV) 04/27/2012 Influenza, Trivalent, Preservative Free, Intramu scular 07/07/2017 Influenza, Unspecified 06/16/2013,05/07/2012 Pfizer SARS-CoV-2 Monovalent Vaccination (12+ Yrs) WILBURN-READY TO USE 01/17/2022 Pneumococcal Polysaccharide PPV23 04/27/2012 Surgical History Surgery Date Site/Laterality Comments PA HYSTEROSCOPY BX ENDOMETRIUM&/POLYPC W/WO D&C 06/09/2016 - [...] on file Legal Sex Female 7:18 PM MANAGER INTERNSHIP Gender Identity Female 12/06/2021 7:20 AM CDT [...] (113 lb 4.8 oz) 04/28/2024 11:30 AM MANAGER INTERNSHIP Height 156.2 cm (5' 1.5 ) 04/28/2024 11:30 AM CS T Body Mass Index 21.06 04/28/2024 11:30 AM MANAGER INTERNSHIP Plan of Treatment Health Maintenance Due Date [...] Discontinued 06/09/2009 Medical Devices Implanted Type Area Hand Candy Cutter Device Identifier Shelf Expiration Date Model / Serial / Lot [employer] [id number] Ventralight St Sepra 6x4in Monofilament Absorbable Low Profile - [id number] Implanted:Qty: 1 on 11/27/2017 by Rosalino Young MD PhD at [facility] Right: Groin [employer] 09/04/2019 [id number] / / Procedures Procedure Name Priority Date/Time [...] age 40, based on guidelines of the [place] [employer] (ACR Practice Parameter for the Performance of Screening and Diagnostic Mammography) and [place] [employer]. For women [...] by the International Society of Clinical Densitometry. [id number] Rubia Dunbar MD G DXA PROCEDURES Final Resu lt * PAP SMEAR WITH HPV (07/15/2012) Pap smear Normal Historical Provider HEALTH MAINTENANCE Final Result * COLONOSCOPY (06/09/2009) Colonoscopy Normal us Historical Provider MD HEALTH MAINTENANCE Final Result from Last 3 Months or Most Recently Relevant to Health Maintenance Insurance AETNA MEDICARE [facility] MEDICARE Address: [facility] [id number] [place] [address] [facility] HMO/PPO Address: [address] [place] [address] AETNA MEDICARE Care Teams Vp Human Resources Relationship Specialty Start Date End Date Dayana Slade PA PCP - General Physician Linter Tender 12/22/19 Rosalinda Goyal MD [address] [place] [address] Neurologist Neurology 05/28/23 Juan C Kamara MD [address] [facility] [address] [place] [address] Referring Physician Neurology 05/28/23 Jolene Zhang, ACCOUNT DEVELOPMENT REPRESENTATIVE [address] DEPT OTOLARYNGOLOGY, [facility] [address] [place] [address] Nurse Practitioner Otolaryngology 05/28/23 Sara Pradhan MD [address] [place], [place] [id number] Consulting Physician Endocrinology Diabetes & Metabolism 05/28/23
--- OUTSIDE RECORDS SUMMARY | 2024-10-15 09:33 | XMS_ITS | Encounter Summary ---
Author Organization [facility] Address [address] [place] [address] Phone Care Team Providers Care Tin Flipper Name Role Phone Keshav Perez MD Primary Care Provider [phone] Dayana Slade Primary Care Pr ovider Rosalinda Goyal MD Unavailable [phone] Juan C Kamara MD Unavailable [phone] Jolene Zhang NP Unavailable [phone] Sara Pradhan MD Unavailable [phone] Encounter Details Date Type Department Care Team (Latest Contact Info) Description 04/07/2017 Orders Only [facility] CONVERSION Scanning, Provider Social History Tobacco Use Types Packs/Day Years Used Date Smoking Tobacco: Never Comments Unknown Sex and Gender Information Value Date Recorded Sex Assigned at Not on file Legal Sex Female 7:18 PM BUS DRIVER Gender Identity Female 12/06/2021 7:20 AM CDT [...] COVID: Suspected 08/03/2022 08/03/2022 08/03/2022 11:48 AM BUS DRIVER COVID: Suspected 02/07/2023 02/07/2023 02/07/2023 10:57 PM CDT COVID: Suspected 03/25/2023 03/25/2023 03/25/2023 4:18 PM CDT documented as of this encounter Care Teams Tin Flipper Relationship Specialty Start Date End Date Keshav Perez MD [address] [facility] [address] [place] [address] PCP - General 10/14/16 12/21/19 Dayana Slade PA [address] [place] [address] [address] [place] [address] PCP - General Physician Medical Records Technician 12/22/19 Rosalinda Goyal MD [address] [place] [address] Neurologist Neurology 05/28/23 Juan C Kamara MD [facility] [address] [facility] [address] [place] [address] Referring Physician Neurology 05/28/23 Jolene Zhang, MEAT CUTTER [address] DEPT OTOLARYNGOLOGY, [facility] [address] [place] [address] Nurse Practitioner Otolaryngology 05/28/23 Sara Pradhan MD [address] [place] [address] Consulting Physician Endocrinology Diabetes & Metabolism 05/28/23 documented as of this encounter
--- OUTSIDE RECORDS SUMMARY | 2024-10-15 09:33 | XMS_ITS | Continuity of Care Document ---
Author Organization [facility] Address [address] [place] [address] Phone Care Team Providers Care Finish Filer Name Role Phone Del Rosario OD, Adelfo Unavailable Unavailable Procedures Procedure Date Contact Lens Hydrophilic, Spherical Medical Tax Contact Lens Hydrophilic, Spherical Medical Tax Contact Lens Check Eye Exam & Treatment Refraction Eye Exam & Treatment Refraction CL Replacement - Vistakon Disp W/BW Soft [employer] Medical CL Replacement - Vistakon Disp W/BW Soft [place] No Charge Contact Lens Check CL Replacement - Other Lens Skweez Eye Exam & Treatment Refraction CL Replacement - Vistakon Disp W/BW Soft [employer] Medical Advance Directives Directive Yes / No Effective Date File Name No Information Encounters Encounter Description Practice Location Reason(s) For Visit Diagnoses Date Provider Providers Copied on Encounter [facility], [address], [place], [place], [id number], [place] tel:[phone] SEC [facility] No Information 0-201 0 Del Rosario OD Adelfo. [address] , [address], [place], [address], [place]. tel:[phone] Referring Provider: Adelfo Del Rosario OD A, [address], [place], [facility]. tel:[phone] [facility], [address] [place] [address] [address], [place], [place], [id number], [place] tel:[phone] SEC [facility] No Information Aug-3 0-201 0 Del Rosario OD Adelfo. [address] , [address], [place], [facility], [place]. tel:[phone] [facility], [address] [place] [address] [address], [place], [place], [id number], [place] tel:[phone] [facility] No Information Aug-1 2-201 0 Del Rosario OD Adelfo. [address] , [address], [place], [facility], [place]. tel:[phone] [facility], [address] [place] [address] [address], [place], [place], [id number], [place] tel:[phone] [facility] No Information Vitaly-3 0-201 0 Del Rosario OD Adelfo. [address] , [address], [place], [facility], [place]. tel:[phone] [facility], [address] [place] [address] [address], [place], [place], [id number], [place] tel:[phone] [facility] No Information Vitaly-3 0-200 9 Del Rosario OD Adelfo. [address] , [address], [place], [facility], [place]. tel:[phone] [facility], [address] [place] [address] [address], [place], [place], [id number], [place] tel:[phone] [facility] No Information Dec-1 5-200 8 Del Rosario OD Adelfo. [address] , [address], [place], [facility], [place]. tel:[phone] [facility], [address] [place] [address] [address], [place], [place], [id number], tel:[phone] [facility] No Information 2 1-200 8 Del Rosario OD Adelfo. [address] [facility] , [address], [place], [facility], . tel:[phone] [facility], [address], [place], [place], [address], [place] tel:[phone] [facility] No Information 1200 8 Del Rosario OD Adelfo. [address] [facility] , [address], [place], [facility], [place]. tel:[phone] [facility], [address], [place], [place], [id number], tel:[phone] [facility] No Information 9200 7 Del Rosario OD Adelfo. [address] [facility] , [address], [place], [facility], . tel:[phone] Family History Family Member Type Diagnosis Age At Onset No Information Payers Payer name Insurance type Covered constitution party ID Authoriza tion(s) No Information Social [...]
--- OUTSIDE RECORDS SUMMARY | 2024-10-15 09:33 | XMS_ITS | Clinical Summary ---
Author Organization [facility] Address [address] [place] [address] Care Team Providers Care Union Organizer Name Role Phone Unavailable Primary Care Provider [...] Description 10/07/2024 10:00 AM CDT Office Visit [facility] [address] [facility] [address] [place] [address] Freda Pink MD Other constipation (Primary Dx); Epigastric pain syndrome; Iron deficiency; Globus sensation 09/24/2024 Chart Note [facility] [address] [facility] [address] [place] [address] Freda Pink MD 08/25/2024 External Device Data STL ABSTRACTION Provider, Abstract 08/19/2024 2:45 PM CDT Office Visit [facility] Oncology and Hematology [facility] [address] [place] [address] Israel Amaro MD Chronic anemia (Primary Dx) 08/18/2024 Orders Only [facility] Oncology and [facility] [address] [place] [address] Israel Amaro MD 08/14/2024 External Device Data STL ABSTRACTION Provider, Abstract 08/13/2024 External Device Data STL ABSTRACTION Provider, Abstract 08/10/2024 External Device Data STL ABSTRACTION Provider, Abstract 07/29/2024 Telephone [facility] [address] [facility] [address] [place] [address] Freda Pink MD video capsule 07/28/2024 External [...] Description 02/22/2025 3:30 PM CDT Office Visit [facility] Oncology and Hematology - Tani [address] [facility] [address] [place] [address] Israel Amaro MD [address] [facility] [address] [place] [address] 03/03/2025 1:50 PM CDT Office Visit [facility] [address] [facility] [address] [place] [address] Freda Pink MD [address] [facility] [address] [place] [address] Health Maintenance Due Date Last Done [...] CDT COLONOSCOPY REPORT 07/14/2024 1: 22 PM TIRE MOLD ENGRAVER from Last 3 Months or Most Recently Relevant to Health Maintenance Results * CBC WITH DIFFERENTIAL (08/16/2024 3:38 PM CDT) Blood us Israel Amaro MD HEMATOLOGY ORDERABLES Final Res ult * COLONOSCOPY REPORT (07/14/2024 1:22 PM TIRE MOLD ENGRAVER) Narrative Procedure Note Freda Pink MD - 07/14/2024 1:22 PM CST [facility] Endoscopy Patient Name: Inga Andre Procedure Date: [...] of Addenda: [address]; [place] [address] Freda Pink MD GI PROCEDURE ORDERABLES F inal Result from Last 3 Months or Most Recently Relevant to Health Maintenance Insurance
--- OUTSIDE RECORDS SUMMARY | 2024-10-15 09:33 | XMS_ITS | Referral Summary ---
Author Organization [facility] Address [address] [place] [address] Care Team Providers Care Professional Nursing Assistant Name Role Phone Dayana Salde Primary Care Pr ovider Rosalinda Goyal MD Unavailable [phone] Juan C Kamara MD Unavailable [phone] Jolene Zhang CORPORATE BOND TRADER Unavailable [phone] Sara Pradhan MD Unavailable [phone] Encounters Date Type Department Care Team Description 09/30/2024 2:00 PM CDT Office Visit [facility]) - [facility] ENT [address] [facility] 11th [place] [address] [place] [address] Jolene Zhang, CORPORATE BOND TRADER Dysfunction of right eustachian tube (Primary Dx); [...] (11/18/2017): Added automatically from request for surgery [id number] Hypothyroidism 11/12/2017 Pre-diabetes 11/12/2017 High cholesterol 11/12/2017 Hip pain 11/12/2017 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 Resolved Problems Problem Noted Date Diagnosed Date Resolved Date Post-menopausal bleeding 10/24/2016 Immunizations Immunization Administration Dates Next Due [employer] Sars-CoV-2 Vaccination 08/17/2020, Influenza, Quadrivalent, Coretta l [...] on file Legal Sex Female 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 Gender Identity Female 12/06/2021 7:20 AM CDT [...] (113 lb 4.8 oz) 04/28/2024 11:30 AM MAINTENANCE SPECIALIST Height 156.2 cm (5' 1.5 ) 04/28/2024 11:30 AM CS T Body Mass Index 21.06 04/28/2024 11:30 AM MAINTENANCE SPECIALIST Plan of Treatment Not on file Medical Devices Implanted Type Area After School Program Director Device Identifier Shelf Expiration Date Model / Serial / Lot [employer] [id number] Ventralight St Sepra 6x4in Monofilament Absorbable Low Profile - [id number] Implanted:Qty: 1 on 11/27/2017 by Rosalino Young MD PhD at [facility] Right: Groin [employer] 09/04/2019 [id number] / / Procedures Procedure Name Priority Date/Time [...] age 40, based on guidelines of the [place] [employer] (ACR Practice Parameter for the Performance of Screening and Diagnostic Mammography) and [place] [employer]ians [employer] Gynec[employer]. For women [...] Bone mineral density was performed on a [employer] Discovery Densitometer. Based on machine cross-calibration and [...] by the International Society of Clinical Densitometry. [id number] Rubia Dunbar MD IMG DXA PROCEDURES Final Resu lt * PAP SMEAR WITH HPV (07/15/2012) Pap smear Normal Historical Provider HEALTH MAINTENANCE Final Result * COLONOSCOPY (06/09/2009) Colonoscopy Normal Historical Provider HEALTH MAINTENANCE Final Result from Last 3 Months or Most Recently Relevant to Health Maintenance Insurance AETNA MEDICARE [facility] H[facility]/PPO Address: [facility] [id number] [place] [phone] AETNA MEDICARE Care Teams Professional Nursing Assistant Relationship Specialty Start Date End Date Dayana Slade PA PCP - General Physician Admission Discharge Rn 12/22/19 Rosalinda Goyal MD [address] [place] [address] Neurologist Neurology 05/28/23 Juan C Kamara MD [address] [place] [address] Referring Physician Neurology 05/28/23 Jolene Zhang, CORPORATE BOND TRADER [address] DEPT OTOLARYNGOLOGY, [facility] [address] [place] [address] Nurse Practitioner Otolaryngology 05/28/23 Sara Pradhan MD [address] [place] [address] Consulting Physician Endocrinology Diabetes & Metabolism 05/28/23
--- OUTSIDE RECORDS SUMMARY | 2024-10-15 09:34 | XMS_ITS | Clinical Summary ---
Author Organization [facility] Address [address] [facility] [place] [address] Care Team Providers Care Record Searcher Name Role Phone Dayana Thomas Primary Care Pr ovider Keshav Perez MD Unavailable [phone] Abdulaziz Alvraez MD Unavailable Lukasz Dean MD Unavailable [phone] Source Comments [facility],non-owned Affiliates and Associated Physician Practices is amultiple site organization consisting of ambulatory clinics and hospital sitesin [place], [place], [place] and [place]. This disclosure is being madepursuant to the Care Everywhere program and may not contain all information available regarding this patient. Last updated 18.[facility] Allergies Active Allergy Reactions Criticality Noted [...] times daily Active Cholecalcifero l 1.25 MG (40736 UT) cholecalciferol (vitamin D3) 1,250 mcg (50,000 [...] problems Immunizations Immunization Administration Dates Next Due [employer] SARS-COV-2 COVID-19 VAC 0.5ML 2020,07/27/2020 Covid Pfizer [...] Comments Blood Pressure 122/72 04/15/2024 10:33 AM DIRECTOR INTEGRATED Pulse 64 04/15/2024 10:33 AM DIRECTOR INTEGRATED Temperature 36.8 C (98.2 F) 05/01/2021 9:07 AM DIRECTOR INTEGRATED Respiratory Rate 16 04/15/2024 10:33 AM DIRECTOR INTEGRATED Oxygen Saturation 100% 04/15/2024 10:33 AM DIRECTOR INTEGRATED Inhaled Oxygen Concentration - - Weight 51.9 kg (114 lb 6.4 oz) 04/15/2024 10:33 AM DIRECTOR INTEGRATED Height 157.5 cm (5' 2 ) 04/15/2024 10:33 AM DIRECTOR INTEGRATED Body Mass Index 20.92 04/15/2024 10:33 AM DIRECTOR INTEGRATED Plan of Treatment Health Maintenance Due Date [...] 03/18/2024 8:18 AM CDT Performed at: - [address] [id number] Business Improvement Manager: Samm Aldana PhD, Phone: [phone] us Abdulaziz Alvarez MD LAB - CHEMISTRY ORDERABLES Final Result [facility] INSURANCE BILL [address] [place] [address] from Last 3 Months or Most Recently Relevant to Health Maintenance Insurance [facility] MEDICARE ADV [facility] * Guarantor: LUCILLE CROCKER Account Type Relation to Patient Date of Phone Billing Address Personal/Family [address] [address] AETNA MEDICARE ADV * Guarantor: LUCILLE CROCKER Account Type Relation to Patient Date of Phone Billing Address Personal/Family [address] [address] * Guarantor: LUCILLE CROCKER Account Type Relation to Patient Date of Phone Billing Address Personal/Family [address] [facility] [place] [address] Care Teams Record Searcher Relationship Specialty Start Date End Date Dayana Thomas PA [address] [place] [address] PCP - General 07/31/22 Keshav Perez MD [address] [place] [address] Internal Medicine 07/31/22 [place] [address] [facility] [address] [id number] Rheumatology 03/17/24 Lukasz Dean MD [address] [place] [address] Gastroenterology 04/15/24
--- NOTE | 2024-10-15 10:00 | PC.NURSE ---
Pt seen exiting ER with steady gait.
[2024-10-15 10:08] VITALS: RESP 18; O2SAT 100
[2024-10-15 10:10] VITALS: BP 121/74; PULSE 63; RESP 16; TEMP 36.7; O2SAT 100
== END 2024-10-15 10:10 | disposition home or self-care (01) ==
PROVIDERS: Emergency Provider Emergency Medicine; PCP Physician Assistant
DX: T50.911A Poisoning by multiple unspecified drugs, medicaments and biological substances, accidental (unintentional), initial encounter (principal); E11.9 Type 2 diabetes mellitus without complications; K21.9 Gastro-esophageal reflux disease without esophagitis; E55.9 Vitamin D deficiency, unspecified; E03.9 Hypothyroidism, unspecified; E78.5 Hyperlipidemia, unspecified; I10 Essential (primary) hypertension
CPT/HCPCS: 82948; 93005; 99283